=== PATIENT | male | born 1960 | race Caucasian/White ===

== ENCOUNTER 2024-11-15 15:46 | Outpatient (CLI) | payer MEDICARE, SELFPAY ==
--- OUTSIDE RECORDS SUMMARY | 2024-11-15 15:50 | XMS_ITS | Clinical Summary ---
Author Organization [facility] Address [address] [place] [address] Care Team Providers Care Artificial Flowers Starcher Name Role Phone Unavailable Primary Care Provider Unavailabl e Allergies No known active allergies Medications atorvastatin (LIPITOR) 80 mg tablet Take 40 mg by mouth daily at bedtime. 09/06/2024 Active ferrous sulfate 325 mg (65 mg iron) tablet Take 1 Tablet by mouth 2 times daily. Active rivaroxaban (XARELTO) 20 mg Tablet Take 20 mg by mouth daily with supper. 08/07/2024 Active ascorbic acid, vitamin C, (Vitamin C) 500 mg tablet Take 500 mg by mouth daily. 06/20/2024 Active vitamin E mixed 200 unit Tablet Take 1 tablet every day by oral route. 06/20/2024 Active Active Problems No known active problems Encounters Date Type Department Care Team Description 11/15/2024 3:00 PM VEGETABLE LOADER MACHINE OPERATOR Office Visit [facility] Oncology and Hematology [place] [address] [place] [phone] Davy Vera MD Prostate cancer ([facility]) (Primary Dx) 11/06/2024 External Device Data [facility] ABSTRACTION Provider, Abstract 10/18/2024 External Device Data [facility] ABSTRACTION Provider, Abstract 10/09/2024 External Device Data [facility] ABSTRACTION Provider, Abstract from Last 3 Months Family History Medical History Relation Name Comments Diabetes Brother 1 No Known Problems Brother 2 No Known Problems Brother 3 Diabetes Father Heart Disease Father back to back h eart attacks No Known Problems Mother No Known Problems Sister Relation Name Status Comments Brother 1 Alive Brother 2 Alive Brother 3 Alive Father Mother Sister Alive Social History Tobacco Use Types Packs/Day Years Used Date Smoking Tobacco: Never Smokeless Tobacco: Never Alcohol Use Standard Drinks/Week Comments Yes 0 (1 standard drink = 0.6 oz pur e alcohol) occasionally Sex and Gender Information Value Date Recorded Sex Assigned at Not on file Legal Sex Male 10:08 AM VEGETABLE LOADER MACHINE OPERATOR Gender Identity Not on file Sexual Orientation Not on file Last Filed Vital Signs Vital Sign Reading Time Taken Comments Blood Pressure 123/69 11/15/2024 3:12 PM VEGETABLE LOADER MACHINE OPERATOR Pulse 67 11/15/2024 3:12 PM VEGETABLE LOADER MACHINE OPERATOR Temperature 36.1 C (97 F) 11/15/2024 3:12 PM VEGETABLE LOADER MACHINE OPERATOR Respiratory Rate 15 11/15/2024 3:12 PM VEGETABLE LOADER MACHINE OPERATOR Oxygen Saturation 96% 11/15/2024 3:12 PM VEGETABLE LOADER MACHINE OPERATOR Inhaled Oxygen Concentration - - Weight 126.6 kg (279 lb) 11/15/2024 3:12 PM VEGETABLE LOADER MACHINE OPERATOR Height 177.8 cm (5' 10 ) 11/15/2024 3:12 PM VEGETABLE LOADER MACHINE OPERATOR Body Mass Index 40.03 11/15/2024 3:12 PM VEGETABLE LOADER MACHINE OPERATOR Plan of Treatment Upcoming Encounters Date Type Department Care Team (Late st Contact Info) Description 12/03/2024 4:30 PM CDT Telephone Check Up [facility] Oncology and Hematology - [place] [address] [facility] [address] [place] [address] Davy Vera MD [address] [facility] [address] [place] [address] Health Maintenance Due Date Last Done Comments Pre-Diabetes and Diabetes Screening 1960 COLORECTAL SCREENING 2003 Colorectal Cancer Screening 2003 FIT-DNA Q 3 years 2003 FIT/FOBT Q 1 year 2003 Flex Sig/CT Colonography Q 5 years 2003 ZOSTER VACCINE (1 of 2) 2008 RSV VACCINE (60+ or ) (1 - Risk 60-74 years 1-dose series) 2018 INFLUENZA VACCINE (#1) 2024 Medicare Advantage ([place]) Prev entative Visit/Annual Wellness Visit 09/26/2024 DTAP/TDAP/TD VACCINES (2 - Td or Tdap) 07/09/2031 PNEUMOCOCCAL VACCINE 65+ YEARS Completed 07/28/2023 Insurance [employer]
--- OUTSIDE RECORDS SUMMARY | 2024-11-15 15:50 | XMS_ITS | Encounter Summary ---
Author Organization [facility] Address [address] [place] [address] Care Team Providers Care Station Jailer Name Role Phone Unavailable Primary Care Provider Unavailabl e Reason for Referral * PET Scan (Routine) - Pending Review Specialty Diagnoses / Procedures Referred By Damon t Referred To Contact Diagnoses Prostate cancer (CMS/HCC) Procedures PET TUMOR GA68 ILLUCIX PSMA IMG W CT SKB MDTH CHG PET IMAGING CT ATTENUATION SKULL BASE MID-THIGH HCHG GALLIUM GA-68 GOZETOTIDE DX ILLUCCIX 1 MCI WA GALLIUM ILLUCCIX 1 MILLICURE Davy Vera MD [facility] First Active [facility] [employer] [address] [place], [place] [id number] Phone: tel: fax: Referral ID Status Reason Start Date Expiration Date V isits Requested Visits Authorized [id number] Pending Review 11/15/2024 12/16/2025 1 1 RGLASS FINISHER * Eval and Treat (Routine) - Open Specialty Diagnoses / Procedures Referred By Damon t Referred To Contact Urology Diagnoses Prostate cancer (CMS/HCC) Procedures WA OFFICE/OUTPATIENT ESTABLISHED MOD MDM 30 MIN WA OFFICE/OUTPATIENT NEW MODERATE MDM 45 MINUTES Davy Vera MD [address] [place] [phone] Phone: tel: fax: Referral ID Status Reason Start Date Expiration Date V isits Requested Visits Authorized [id number] Open CRS To Schedule (STL) 11/15/2024 11/15/2025 1 1 RGLASS FINISHER Encounter Details Date Type Department Care Team (Late st Contact Info) Description 11/15/2024 3:00 PM FIBERGLASS FINISHER Office Visit [facility] Oncology and Hematology [facility] [address] [place] [address] Davy Vera MD [address] [facility] [employer] [address] [place] [phone] Prostate cancer (CMS/HCC) (Primary Dx) Social History Tobacco Use Types Packs/Day Years Used Date Smoking Tobacco: Never Smokeless Tobacco: Never Alcohol Use Standard Drinks/Week Comments Yes 0 (1 standard drink = 0.6 oz pur e alcohol) occasionally Sex and Gender Information Value Date Recorded Sex Assigned at Not on file Legal Sex Male 10:08 AM FIBERGLASS FINISHER Gender Identity Not on file Sexual Orientation Not on file documented as of this encounter Last Filed Vital Signs Vital Sign Reading Time Taken Comments Blood Pressure 123/69 11/15/2024 3:12 PM FIBERGLASS FINISHER Pulse 67 11/15/2024 3:12 PM FIBERGLASS FINISHER Temperature 36.1 C (97 F) 11/15/2024 3:12 PM FIBERGLASS FINISHER Respiratory Rate 15 11/15/2024 3:12 PM FIBERGLASS FINISHER Oxygen Saturation 96% 11/15/2024 3:12 PM FIBERGLASS FINISHER Inhaled Oxygen Concentration - - Weight 126.6 kg (279 lb) 11/15/2024 3:12 PM FIBERGLASS FINISHER Height 177.8 cm (5' 10 ) 11/15/2024 3:12 PM FIBERGLASS FINISHER Body Mass Index 40.03 11/15/2024 3:12 PM FIBERGLASS FINISHER documented in this encounter Plan of Treatment Upcoming Encounters Date Type Department Care Team (Late st Contact Info) Description 12/03/2024 4:30 PM CDT Telephone Check Up [facility] Oncology and Hematology [facility] [address] [place] [address] Davy Vera MD [address] [place] [phone] Scheduled Orders Name Type Priority Associated Diagnoses Orde r Schedule PET TUMOR GA68 ILLUCIX PSMA IMG W CT SKB MDTH Imaging Routine Prostate cancer (CMS/HCC) 1 Occurrences starting 11/15/2024 until 11/15/2025 TESTOSTERONE FREE AND TOTAL Lab Routine Prostate cancer (CMS/HCC) Expected: 11/15/2024, Expires: 11/15/2025 PSA Lab Routine Prostate cancer (CMS/HCC) Expected: 12/06/2024, Expires: 11/15/2025 Scheduled Referrals Name Type Priority Associated Diagnoses Orde r Schedule AMB REFERRAL TO UROLOGY Outpatient Referral Routine Prostate cancer (CMS/HCC) Ordered: 11/15/2024 documented as of this encounter Visit Diagnoses Diagnosis Prostate cancer (CMS/HCC)- Primary Malignant neoplasm of prostate documented in this encounter
--- OUTSIDE RECORDS SUMMARY | 2024-11-15 15:51 | XMS_ITS | Patient Health Summary ---
Author Organization [facility] Address [address] [place] [address] Care Team Providers Care Police Patrol Lieutenant Name Role Phone Unknown, Provider Primary Care Provider Unavaila ble Note from [facility],non-owned Affiliates and Associated Physician Practices is amultiple site organization consisting of ambulatory clinics and hospital sitesin [place], [place], [place] and [place]. This disclosure is being madepursuant to the Care Everywhere program and may not contain all information available regarding this patient. Last updated 18.[facility] Allergies No known active allergies Medications * Be aware that medications may not be up to date on this document. Alwaysverify current medications with the patient. * atorvastatin (Lipitor) 40 MG tablet(Started 11/04/2023) Take 1 (one) tablet by mouth once daily * Calcium Carb-Cholecalciferol (Oyster Shell Calcium w/D) 500-5 MG-MCG TABS Take 1 tablet by mouth 2 times daily * rivaroxaban (Xarelto) 20 MG tablet Take 1 tablet every day by oral route. * cetirizine (ZyrTEC) 10 MG chew tablet Take 1 (one) tablet by mouth once daily * vitamin E (Tocopheryl) 200 UNIT capsule(Started 09/20/2023) Take 1 (one) capsule by mouth once daily * ascorbic acid (Vitamin C) 500 MG tablet(Started 09/20/2023) Take 1 (one) tablet by mouth once daily * VITAMIN D, CHOLECALCIFEROL, PO * VITAMIN A PO Active Problems Problem Noted Date Diagnosed Date Hepatic steatosis 03/20/2024 Social History Tobacco Use Types Packs/Day Years Used Date Smoking Tobacco: Never Smokeless Tobacco: Never Tobacco Cessation:Counseling Given: Not Answered Alcohol Use Standard Drinks/Week Comments Not Currently 0 (1 standard drink = 0.6 oz pur e alcohol) Sex and Gender Information Value Date Recorded Sex Assigned at Not on file Gender Identity Not on file Sexual Orientation Not on file Last Filed Vital Signs Vital Sign Reading Time Taken Comments Blood Pressure 119/64 03/20/2024 1:22 PM CDT Pulse 57 03/20/2024 1:22 PM CDT Temperature - - Respiratory Rate - - Oxygen Saturation 97% 03/20/2024 1:22 PM CDT Inhaled Oxygen Concentration - - Weight 125.5 kg (276 lb 9.6 oz) 03/20/2024 1:22 PM CDT Height 177.8 cm (5' 10 ) 12/23/2023 10: 22 AM CDT Body Mass Index 39.69 12/23/2023 10:22 AM CDT Procedures * PA LIVER ELASTOGRAPHY(Performed 03/20/2024) Performed for Elevated liver enzymes, Hepatic steatosis * ADELAIDA HEP-2 IGG BY IFA(Performed 12/23/2023) Performed for Hepatomegaly, Hepatic steatosis, Elevated liver enzymes * BILIRUBIN DIRECT(Performed 12/23/2023) Performed for Hepatomegaly, Hepatic steatosis, Elevated liver enzymes * IRON + TRANSFERRIN PANEL(Performed 12/23/2023) Performed for Hepatomegaly, Hepatic steatosis, Elevated liver enzymes * HEPATITIS C ANTIBODY(Performed 12/23/2023) Performed for Hepatomegaly, Hepatic steatosis, Elevated liver enzymes * HEPATITIS B SURFACE ANTIGEN W RFLX CONFIRMATION(Performed 12/23/2023) Performed for Hepatomegaly, Hepatic steatosis, Elevated liver enzymes * HEPATITIS B SURFACE ANTIBODY(Performed 12/23/2023) Performed for Hepatomegaly, Hepatic steatosis, Elevated liver enzymes * HEPATITIS B CORE ANTIBODY TOTAL(Performed 12/23/2023) Performed for Hepatomegaly, Hepatic steatosis, Elevated liver enzymes * HEPATITIS A ANTIBODY(Performed 12/23/2023) Performed for Hepatomegaly, Hepatic steatosis, Elevated liver enzymes * GGT(Performed 12/23/2023) Performed for Hepatomegaly, Hepatic steatosis, Elevated liver enzymes * FERRITIN(Performed 12/23/2023) Performed for Hepatomegaly, Hepatic steatosis, Elevated liver enzymes * CERULOPLASMIN(Performed 12/23/2023) Performed for Hepatomegaly, Hepatic steatosis, Elevated liver enzymes * ADELAIDA BLOOD SCREEN W/REFLEX TITER(Performed 12/23/2023) Performed for Hepatomegaly, Hepatic steatosis, Elevated liver enzymes * QHUVF-4-UOGZHPIREYV BLOOD(Performed 12/23/2023) Performed for Hepatomegaly, Hepatic steatosis, Elevated liver enzymes * COMPREHENSIVE METABOLIC PANEL(Performed 12/23/2023) Performed for Hepatomegaly, Hepatic steatosis, Elevated liver enzymes * CBC W AUTO DIFFERENTIAL(Performed 12/23/2023) Performed for Hepatomegaly, Hepatic steatosis, Elevated liver enzymes Results * PA LIVER ELASTOGRAPHY (03/20/2024 1:17 PM CDT) Jair Deleon MD - 03/20/2024 1:17 PM CDT Jair Ramos MD 03/20/2024 2:01 PM Diagnosis: Hepatic Steatosis, SUZANNE RN verified patient is NPO for prior 3 hours. Procedure explained. Date of Exam: 03/20/2024 Liver Stiffness: (LSM, kPa) median: 7.7 IQR/Median% (ideally < 30%): 11% CAP (controlled attenuation parameter): 354 Technical Difficulty: Patient jerked with every tap. Denied being painful Ordering Provider: BOOM Luo Phone Fax Fibroscan interpretation: I have personally reviewed the Fibroscan report and associated tracings. The calculated Liver Stiffness Measurement (LSM, kPa) indicates that: The probability of advanced liver fibrosis is: low to moderate. The loss of ultrasound signal, (controlled attenuation parameter, CAP [dB/m]), indicates that the probability of hepatic steatosis is: high. Jair Ceja MD The following criteria are used to indicate the probability of advanced (stage 3-4) fibrosis: < 7.0 kPa: low 7.0-8.9 kPa: low to moderate 9.0-14.9 kPa: moderate 15-20 kPa: high > 20 kPa: very high Liver stiffness > 20 kPa is also associated with a high probability of complications of portal hypertension including varices and ascites. Liver stiffness > 50 kPa is associated with a high risk of variceal bleeding. These interpretations are based on the following published data: Eber PJ, Lee M, Pura M, et al. Accuracy of FibroScan controlled attenuation parameter and liver stiffness measurement in assessing steatosis and fibrosis in patients with nonalcoholic fatty liver disease. Gastroenterology 2019;156:6900-7368. Freddie MS, Bassam R, Van Latosha ML, et al. Vibration-controlled transient elastography to assess fibrosis and steatosis in patients with nonalcoholic fatty liver disease. Clin Gastroenterol Hepatol 2019;17:156-163. Note that scores have been developed that incorporate the Fibroscan liver stiffness measurement from large cohorts of patients with liver biopsies to further refine the ability of Fibroscan to identify patients with MASH and advanced fibrosis. These include the FAST (Fibroscan-AST) score (Moraima, 202) and the Agile3+ and Agile4 scores (Anirudh, 202). Moraima TA, Van Natta ML, Rishi M, Reed A, et al. Validation of the accuracy of the FAST score for detecting patients with at-risk nonalcoholic steatohepatitis (LEWIS) in a [place] cohort and comparison to other non-invasive algorithms. PLoS ONE (2021) 17: [id number]. Anirudh AJ, Ced J, Bryce STAUFFER, et al. Enhanced diagnosis of advanced fibrosis and cirrhosis in individuals with NAFLD using FibroScan-based Agile scores. J Hepatol (2022) 78: 247-259. Fibroscan LSM can also be used with laboratory parameters without formulas to assess prognosis. According to the Baveno-VII criteria (Le, 202), Fibroscan LSM ?15 kPa plus a platelet count of ?[id number]/L rules out clinically significant portal hypertension (sensitivity and negative predictive value >90%) in patients with compensated advanced chronic liver disease. Le R, Josesito J, Rober-João G, Jameson T, Rocío Dias on behalf of the Baveno VII Faculty. Baveno VII--Renewing consensus in portal hypertension. J Hepatol (2021) 76: 959-974 Assessing the likelihood of advanced fibrosis in patients with intermediate liver stiffness measurement (LSM) by Fibroscan (e.g., 8-15 kPa) can be improved by also calculating the FIB-4 score (Ada et al. Hepatology Communications 2019;3:5136-1259) or NAFLD Fibrosis score (Hopkins et al. Clinical Gastroenterology and Hepatology 2019;17:1333-6047 using routine clinical data. Note: 1. Fibroscan cannot reliably identify earlier stages of fibrosis (ie distinguish F0 from F1 and F2) and thus a histologic stage cannot be predicted from the Fibroscan reading. 2. Liver stiffness can be increased by factors other than fibrosis including passive congestion, infiltrative processes, active alcoholism, recent moderate alcohol consumption in the 2 weeks before the exam, biliary obstruction and marked inflammation. The interpretation of the Fibroscan result provided above may not have taken such clinical factors into account. Disease etiology also influences Fibroscan cutoff values for fibrosis stages and the following cutoffs have been proposed (Volodymyr et al, Clin Gastro Hepatol 2015; 13:27-36): Cutoffs for Stage 3 and Stage 4 fibrosis respectively: Hepatitis B: >9 and >11.7 kPa Hepatitis C: >9.5 and >12.5 kPa HCV-HIV: >11 and >14 kPa Cholestatic liver diseases: >10 and >17.9 kPa MASLD/MASH: >10 and >14 kPa CAP estimates of steatosis: normal <200 dB/m mild 200 to 250 dB/m moderate 250-290 dB/m substantial > 290 dB/m (Note that Fibroscan is not a quantitative measure of liver fat.) These criteria are estimates and may change as additional supporting data becomes available. (This additional interpretive data was last updated 01/29/23.) [email or web address] Gisela Nuris Roper FURNITURE ASSEMBLER-DOUBLING MACHINE OPERATOR PROCEDURE/M INOR SURGICAL ORDERABLES * ADELAIDA HEP-2 IGG BY IFA (12/23/2023 11:22 AM CDT) ADELAIDA HEp-2 IgG <1:80 <1:80 12/29/2023 12:34 AM CDT [facility] ([facility]) ADELAIDA Interpretive Comment See Note 12/29/2023 12:34 AM CDT [facility] ([facility]) Comment: Antinuclear antibodies by IFA negative for homogeneous, speckled, nucleolar, centromere, and nuclear dots patterns. Cytoplasmic antibodies by IFA negative for reticular/AMA, discrete/GW body-like, polar/golgi-like, rods and rings, and cytoplasmic speckled patterns. INTERPRETIVE INFORMATION: ADELAIDA Interpretive Comment Presence of antinuclear antibodies (ADELAIDA) is a hallmark feature of systemic autoimmune rheumatic diseases (SARD). However, ADELAIDA lacks diagnostic specificity and is associated with a variety of diseases (cancers, autoimmune, infectious, and inflammatory conditions) and may also occur in healthy individuals in varying prevalence. The lack of diagnostic specificity requires confirmation of positive ADELAIDA by more specific serologic tests. ADELAIDA (nuclear reactivity) positive patterns reported include centromere, homogeneous, nuclear dots, nucleolar, or speckled. ADELAIDA (cytoplasmic reactivity) positive patterns reported include reticular/AMA, discrete/GW body-like, polar/golgi-like, cytoplasmic speckled or rods and rings. All positive patterns are reported to endpoint titers (1:2560). Reported patterns may help guide differential diagnosis, although they may not be specific for individual antibodies or diseases. Mitotic staining patterns not reported. Negative results do not necessarily rule out SARD. Performed By: [facility] [address] [place] [address] Slip Laster: Juan Rodriges MD, PhD CLIA Number: [id number] Blood BLOOD SPECIMEN / Unknown Lab Venipuncture / Unknown 12/23/2023 11:22 AM CDT 12/23/2023 11:34 AM CDT Gisela Roper FURNITURE ASSEMBLER-DOUBLING MACHINE OPERATOR LAB - SEROL OGY ORDERABLES [facility] ([facility]) [facility]) [address] [place] [address] * (ABNORMAL) ADELAIDA BLOOD SCREEN W/REFLEX TITER (12/23/2023 11:22 AM CDT) ADELAIDA IgG Detected (A) None Detected 12/25/2023 7:59 PM CDT COUNT INCLUDES THE [facility] ([facility]) Comment: Antibodies to Anti-Nuclear Antibodies (ADELAIDA) detected. Additional testing to follow. INTERPRETIVE INFORMATION: Anti-Nuclear Antibodies (ADELAIDA), IgG by SHANNON Antinuclear Antibodies (ADELAIDA), IgG by SHANNON: ADELAIDA specimens are screened using enzyme-linked immunosorbent assay (SHANNON) methodology. All SHANNON results reported as Detected are further tested by indirect fluorescent assay (IFA) using HEp-2 substrate with an IgG-specific conjugate. The ADELAIDA SHANNON screen is designed to detect antibodies against dsDNA, histones, SS-A (Ro), SS-B (La), Sullivan, Sullivan/[employer], Scl-70, Milka-1, centromeric proteins, other antigens extracted from the HEp-2 cell nucleus. ADELAIDA SHANNON assays have been reported to have lower sensitivities than ADELAIDA IFA for systemic autoimmune rheumatic diseases (SARD). Negative results do not necessarily rule out SARD. Performed By: [facility] [address] [place] [address] Slip Laster: Juan Rodriges MD, PhD CLIA Number: [id number] Blood BLOOD SPECIMEN / Unknown Lab Venipuncture / Unknown 12/23/2023 11:22 AM CDT 12/23/2023 11:34 AM CDT Gisela Roper FURNITURE ASSEMBLER-DOUBLING MACHINE OPERATOR LAB - CHEMI STRY ORDERABLES [address] [address] * CERULOPLASMIN (12/23/2023 11:22 AM CDT) Ceruloplasmin 28 20 - 60 mg/dL 12/23/2023 12:09 PM CDT [facility] Blood BLOOD SPECIMEN / Unknown Lab Venipuncture / Unknown 12/23/2023 11:22 AM CDT 12/23/2023 11:34 AM CDT Gisela Roper APRN-DOUBLING MACHINE OPERATOR LAB - CHEMI STRY ORDERABLES [address] [address], [facility] [phone] * ZAANS-8-MMMQWJOTQWE BLOOD (12/23/2023 11:22 AM CDT) Qbyfq-9-Egoado ypsin 152 90 - 200 mg/dL 12/23/2023 12:09 PM CDT [facility] Blood BLOOD SPECIMEN / Unknown Lab Venipuncture / Unknown 12/23/2023 11:22 AM CDT 12/23/2023 11:34 AM CDT Gisela Roper FURNITURE ASSEMBLER-DOUBLING MACHINE OPERATOR LAB - CHEMI STRY ORDERABLES [address] [address], [facility] [phone] * (ABNORMAL) CBC WITH DIFFERENTIAL (12/23/2023 11:22 AM CDT) [facility] WBC 4.6 4.0 - 10.7 x10E9/L 12/23/2023 11:49 AM [facility] RBC Count 4.99 4.30 - 5.80 x10E12/L 12/23/2023 11:49 AM [facility] Hemoglobin 13.6 13.3 - 17.5 g/dL 12/23/2023 11:49 AM [facility] Hematocrit 40.7 38.7 - 51.1 % 12/23/2023 11:49 AM [facility] MCV 81.6 80.0 - 98.0 fL 12/23/2023 11:49 AM [facility] MCH 27.3 26.7 - 33.6 pg 12/23/2023 11:49 AM [facility] MCHC 33.4 31.7 - 36.3 g/dL 12/23/2023 11:49 AM [facility] RDW-CV 13.8 11.3 - 14.8 % 12/23/2023 11:49 AM [facility] Platelet Count 168 150 - 420 x10E9/L 12/23/2023 11:49 AM [facility] MPV 9.4 7.8 - 11.4 fL 12/23/2023 11:49 AM [facility] Neutrophil % 55.1 41.0 - 74.0 % 12/23/2023 11:49 AM [facility] Lymphocyte % 19.8 17.0 - 47.0 % 12/23/2023 11:49 AM [facility] Monocyte % 21.8(H) 3.0 - 11.0 % 12/23/2023 11:49 AM [facility] Eosinophil % 1.1 0.0 - 7.0 % 12/23/2023 11:49 AM [facility] Basophil % 1.5 0.0 - 1.6 % 12/23/2023 11:49 AM [facility] Immature Granulocytes % 0.7 0.0 - 1.0 % 12/23/2023 11:49 AM [facility] Neutrophil Absolute 2.51 1.60 - 7.50 x10E9/L 12/23/2023 11:49 AM [facility] Lymphocyte Absolute 0.90(L) 1.00 - 4.40 x10E9/L 12/23/2023 11:49 AM [facility] Monocyte Absolute 0.99 0.15 - 1.00 x10E9/L 12/23/2023 11:49 AM [facility] Eosinophil Absolute 0.05 0.00 - 0.60 x10E9/L 12/23/2023 11:49 AM [facility] Basophil Absolute 0.07 0.00 - 0.13 x10E9/L 12/23/2023 11:49 AM [facility] Blood BLOOD SPECIMEN / Unknown Lab Venipuncture / Unknown 12/23/2023 11:22 AM CDT 12/23/2023 11:38 AM CDT Gisela Roper FURNITURE ASSEMBLER-DOUBLING MACHINE OPERATOR LAB - HEMAT OLOGY ORDERABLES [facility] [address] [place] [address], [facility] [phone] * (ABNORMAL) COMPREHENSIVE METABOLIC PANEL (12/23/2023 11:22 AM CDT) BUN 16 7 - 26 mg/dL 12/23/2023 12:06 PM [facility] Creatinine 0.99 0.71 - 1.16 mg/dL 12/23/2023 12:06 PM [facility] Sodium 139 136 - 145 mmol/L 12/23/2023 12:06 PM [facility] Potassium 3.6 3.5 - 4.5 mmol/L 12/23/2023 12:06 PM [facility] Chloride 107 98 - 107 mmol/L 12/23/2023 12:06 PM [facility] CO2 24 22 - 29 mmol/L 12/23/2023 12:06 PM [facility] Glucose 68(L) 70 - 115 mg/dL 12/23/2023 12:06 PM [facility] Calcium 8.8 8.4 - 10.2 mg/dL 12/23/2023 12:06 PM [facility] Protein Total 7.4 6.0 - 8.3 g/dL 12/23/2023 12:06 PM [facility] Albumin 3.5 3.4 - 5.0 g/dL 12/23/2023 12:06 PM [facility] Bilirubin Total 1.0 0.2 - 1.2 mg/dL 12/23/2023 12:06 PM [facility] Alkaline Phosphatase 66 40 - 150 U/L 12/23/2023 12:06 PM [facility] ALT 43 5 - 55 U/L 12/23/2023 12:06 PM [facility] AST 29 5 - 34 U/L 12/23/2023 12:06 PM [facility] Anion Gap 8 6 - 16 12/23/2023 12:06 PM [facility] BUN/Creatinine Ratio 16 7 - 23 12/23/2023 12:06 PM [facility] Osmolality Calculated 287 275 - 295 mOsm/kg 12/23/2023 12:06 PM [facility] Albumin/Globulin Ratio 0.9(L) 1.1 - 2.3 12/23/2023 12:06 PM [facility] eGFR by CKD-EPI 85(L) >=90 mL/min/1.7 3 m2 12/23/2023 12:06 PM [facility] Blood BLOOD SPECIMEN / Unknown Lab Venipuncture / Unknown 12/23/2023 11:22 AM CDT 12/23/2023 11:38 AM CDT Gisela Roper FURNITURE ASSEMBLER-DOUBLING MACHINE OPERATOR LAB - CHEMI STRY ORDERABLES [facility] [address] [place] [address], [facility] [phone] * HEPATITIS B SURFACE ANTIBODY (12/23/2023 11:22 AM CDT) Hepatitis B Virus Surface Antibody Non-react yoana Non-react yoana 12/23/2023 12:25 PM [facility] Comment: < 8 mIU/mL Hepatitis B surface Antibody (HBsAb). Nonreactive for HBsAb - individual is considered not immune to Hepatitis B Virus infection. Hepatitis B Surface Antibody Quantitative 0.1 <8.0 mIU/mL 12/23/2023 12:25 PM CDT [facility] Comment: Hepatitis B Surface Antibody Numeric Result Interpretation: Nonreactive: <8.0 mIU/mL Indeterminate: 8.0 - 12.0 mIU/mL Reactive: >12.0 mIU/mL Blood BLOOD SPECIMEN / Unknown Lab Venipuncture / Unknown 12/23/2023 11:22 AM CDT 12/23/2023 11:34 AM CDT Gisela Roper APRN-DOUBLING MACHINE OPERATOR LAB - CHEMI STRY ORDERABLES Performing Organization Address City/[facility]/ZIP Co de Phone Number [address] [address], [facility] [phone] * HEPATITIS B CORE ANTIBODY TOTAL (12/23/2023 11:22 AM CDT) HBc Antibody Total Non-reacti ve Non-reacti ve 12/23/2023 12:25 PM CDT [facility] Blood BLOOD SPECIMEN / Unknown Lab Venipuncture / Unknown 12/23/2023 11:22 AM CDT 12/23/2023 11:34 AM CDT Gisela Roper APRN-DOUBLING MACHINE OPERATOR LAB - CHEMI STRY ORDERABLES [address] [address], [place] [phone] * HEPATITIS B SURFACE ANTIGEN W RFLX CONFIRMATION (12/23/2023 11:22 AM CDT) Hepatitis B Virus Surface Antigen Non-reacti ve Non-reacti ve 12/23/2023 12:25 PM CDT [facility] Blood BLOOD SPECIMEN / Unknown Lab Venipuncture / Unknown 12/23/2023 11:22 AM CDT 12/23/2023 11:34 AM CDT Gisela Lawler Roper FURNITURE ASSEMBLER-DOUBLING MACHINE OPERATOR LAB - CHEMI STRY ORDERABLES [address] [address], [facility] [phone] * GGT (12/23/2023 11:22 AM CDT) GGT 18 9 - 64 Units/L 12/23/2023 12:06 PM CDT [facility] Blood BLOOD SPECIMEN / Unknown Lab Venipuncture / Unknown 12/23/2023 11:22 AM CDT 12/23/2023 11:38 AM CDT Gisela Roper APRN-DOUBLING MACHINE OPERATOR LAB - CHEMI STRY ORDERABLES Performing Organization Address City/[facility]/ZIP Co de Phone Number [address] [address], [facility] [phone] * BILIRUBIN DIRECT (12/23/2023 11:22 AM CDT) Bilirubin Conjugated 0.5 0.1 - 0.5 mg/dL 12/23/2023 12:06 PM CDT [facility] Blood BLOOD SPECIMEN / Unknown Lab Venipuncture / Unknown 12/23/2023 11:22 AM CDT 12/23/2023 11:38 AM CDT [facility] - CHEMI STRY ORDERABLES [address] [address], [facility] [phone] * (ABNORMAL) IRON + TRANSFERRIN PANEL (12/23/2023 11:22 AM CDT) Iron 34(L) 50 - 175 ug/dL 12/23/2023 12:11 PM CDT [facility] Transferrin 239 174 - 382 mg/dL 12/23/2023 12:11 PM CDT [facility] Transferrin Saturation % 11(L) 16 - 50 % 12/23/2023 12:11 PM CDT [facility] TIBC Calculated 299 240 - 450 ug/dL 12/23/2023 12:11 PM CDT [facility] Blood BLOOD SPECIMEN / Unknown Lab Venipuncture / Unknown 12/23/2023 11:22 AM CDT 12/23/2023 11:34 AM CDT Gisela Roper FURNITURE ASSEMBLER-DOUBLING MACHINE OPERATOR LAB - CHEMI STRY ORDERABLES [address] [address], [facility] [phone] * HEPATITIS C ANTIBODY (12/23/2023 11:22 AM CDT) Pathologist [facility] Hepatitis C Antibody Non-react yoana Non-reac tive 12/23/2023 12:25 PM CDT [facility] Comment:Hepatitis C Antibody screen indicates no serologic evidence of past or current infection with Hepatitis C Virus. Patients with unexplained liver disease who are immunocompromised or suspected of having acute Hepatitis C infection may benefit from Nucleic Acid Test (ESTELA) for Hepatitis C Viral RNA to confirm Hepatitis C status. Blood BLOOD SPECIMEN / Unknown Lab Venipuncture / Unknown 12/23/2023 11:22 AM CDT 12/23/2023 11:34 AM CDT Gisela Roper APRN-DOUBLING MACHINE OPERATOR LAB - CHEMI STRY ORDERABLES Performing Organization Address City/[facility]/ZIP Co de Phone Number [address] [address], [place] [phone] * HEPATITIS A ANTIBODY (12/23/2023 11:22 AM CDT) Pathologist [facility] Hepatitis A Virus Antibody Total Negative Negative 12/24/2023 7:11 PM CDT [employer] ([facility]) Comment: Performed By: [facility] [address] [place] [address] Slip Laster: Juan Rodriges MD, PhD CLIA Number: [id number] Blood BLOOD SPECIMEN / Unknown Lab Venipuncture / Unknown 12/23/2023 11:22 AM CDT 12/23/2023 11:34 AM CDT Gisela Roper FURNITURE ASSEMBLER-DOUBLING MACHINE OPERATOR LAB - CHEMI STRY ORDERABLES [facility] ([facility]) [address] [place] [phone], [facility] * FERRITIN (12/23/2023 11:22 AM CDT) Ferritin 117 22 - 275 ng/mL 12/23/2023 12:25 PM CDT [facility] Blood BLOOD SPECIMEN / Unknown Lab Venipuncture / Unknown 12/23/2023 11:22 AM CDT 12/23/2023 11:34 AM CDT Gisela Roper FURNITURE ASSEMBLER-DOUBLING MACHINE OPERATOR LAB - CHEMI STRY ORDERABLES [address] [address], [facility] [phone] Care Teams Police Patrol Lieutenant Relationship Specialty Start Date End Date Unknown, Provider PCP - General 12/23/23
--- OUTSIDE RECORDS SUMMARY | 2024-11-15 15:51 | XMS_ITS | Referral Summary ---
Author Organization [facility] Address [address] [place] [address] Care Team Providers Care Interactive Media Project Manager Name Role Phone Chito Cornejo MD Primary Care Provider + Encounters Date Type Department Care Team Description 10/23/2024 9:43 PM MOTOR VEHICLE ASSEMBLER - 10/24/2024 1:59 AM MOTOR VEHICLE ASSEMBLER Emergency [facility] Emergency Department [address] [place] [address] Joleen Camejo MD Rectal bleeding (Primary Dx) Discharge Disposition: Discharge to home or self care from Last 3 Months Allergies No known active allergies Medications aspirin 325 mg tablet Take 325 mg by mouth daily Active calcium carbonate-vitami n D3 1,250mg (500mg elemental) - 5 mcg (200 units) per tablet Take 1 tablet by mouth 2 (two) times a day with meals Active dextroamphetamin e-amphetamine (ADDERALL) 30 mg tablet Take 1 tablet (30 mg total) by mouth daily 30 tablet 05/01/2021 Active RIVAROXABAN 15 MG (42)-20 MG (9) TABLETS IN A STARTER PACK Take 15 mg (1 tablet) TWICE a day for 21 days, then take 20 mg (1 tablet) once a day thereafter. 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 Denies 10/23/2024 Sex and Gender Information Value Date Recorded Sex Assigned at Not on file Legal Sex Male 1:17 AM MOTOR VEHICLE ASSEMBLER Gender Identity Not on file Sexual Orientation Not on file Last Filed Vital Signs Vital Sign Reading Time Taken Comments Blood Pressure 137/85 10/24/2024 1:00 AM MOTOR VEHICLE ASSEMBLER Pulse 62 10/24/2024 1:50 AM MOTOR VEHICLE ASSEMBLER Temperature 36.7 C (98 F) 10/23/2024 7:43 PM MOTOR VEHICLE ASSEMBLER Respiratory Rate 18 10/23/2024 7:45 PM MOTOR VEHICLE ASSEMBLER Oxygen Saturation 92% 10/24/2024 1:50 AM MOTOR VEHICLE ASSEMBLER Inhaled Oxygen Concentration - - Weight 127.5 kg (281 lb) 10/23/2024 7:43 PM MOTOR VEHICLE ASSEMBLER Height 177.8 cm (5' 10 ) 10/23/2024 7:43 PM MOTOR VEHICLE ASSEMBLER Body Mass Index 40.32 10/23/2024 7:43 PM MOTOR VEHICLE ASSEMBLER Plan of Treatment Not on file Procedures Procedure Name Priority Date/Time Associated Diagnosis Comments HEMOGLOBIN AND HEMATOCRIT STAT 10/24/2024 12:58 AM MOTOR VEHICLE ASSEMBLER B ABO / RH CONFIRMATION TESTING STAT 10/24/2024 12:58 AM MOTOR VEHICLE ASSEMBLER EGFR STAT 10/23/2024 9:59 PM MOTOR VEHICLE ASSEMBLER DIFFERENTIAL AUTO STAT 10/23/2024 9:5 9 PM MOTOR VEHICLE ASSEMBLER ANTIBODY SCREEN STAT 10/23/2024 9:59 PM MOTOR VEHICLE ASSEMBLER ABO/RH STAT 10/23/2024 9:59 PM MOTOR VEHICLE ASSEMBLER TYPE AND SCREEN STAT 10/23/2024 9:59 PM MOTOR VEHICLE ASSEMBLER PROTIME-INR STAT 10/23/2024 9:59 PM MOTOR VEHICLE ASSEMBLER COMPREHENSIVE METABOLIC PANEL STAT 10/23/2024 9:59 PM MOTOR VEHICLE ASSEMBLER CBC WITH AUTO DIFFERENTIAL STAT 10/23/2024 9:59 PM MOTOR VEHICLE ASSEMBLER SERUM HEPATITIS PANEL Routine 05/24/2015 6:53 AM CDT from Last 3 Months or Most Recently Relevant to Health Maintenance Results * ABO / Rh Confirmation Testing (10/24/2024 12:58 AM MOTOR VEHICLE ASSEMBLER) Pathologist [facility] ABO/Rh Confirmation B Positive [facility] Blood 10/24/2024 12:5 8 AM MOTOR VEHICLE ASSEMBLER 10/24/2024 1:02 AM MOTOR VEHICLE ASSEMBLER us Mora BANKS LAB BLOOD ORDERABLES Blanca l Result [facility] ([place]) [address] [place] [address] [place] [address] [facility] * Hemoglobin and hematocrit (10/24/2024 12:58 AM MOTOR VEHICLE ASSEMBLER) [facility] Hgb 13.5 13.0 - 17.5 g/dL Hct 40.1 38.9 - 50.3 % [facility]) Blood 10/24/2024 12:5 8 AM MOTOR VEHICLE ASSEMBLER 10/24/2024 1:02 AM MOTOR VEHICLE ASSEMBLER us Joleen Camejo MD LAB BLOOD ORDERABLES Final Resul t [facility] ([place]) [address] [place] [address] [place] [address] * eGFR (10/23/2024 9:59 PM MOTOR VEHICLE ASSEMBLER) eGFR >90 >=60 mL/min/1. 73 m2 Comment: Interpretive Data Reference Interval Normal >/= 90 mL/min/1.73m2 Mildly decreased* 60 - 89 mL/min/1.73m2 Mildly to moderately decreased 45 - 59 mL/min/1.73m2 Moderately to severely decreased 30 - 44 mL/min/1.73m2 Severely decreased 15 - 29 mL/min/1.73m2 Kidney Failure < 15 mL/min/1.73m2 *Relative to young adult level Estimated glomerular filtration rate is determined by the 2020 CKD-EPI equation recommended by the National Kidney Foundation (A Unifying Approach to GFR Estimation: Recommendations of the NKF-ASK Task Force on Reassessing the Inclusion of Race in Diagnosing Kidney Disease, JASN 2020). The CKD-EPI equation should not be used for patients with unstable renal function and has not been validated in children and those over 70. Current interpretive data was last reviewed 2021. Blood 10/23/2024 9:59 PM MOTOR VEHICLE ASSEMBLER 10/23/2024 10:01 PM MOTOR VEHICLE ASSEMBLER us Mora BANKS LAB BLOOD ORDERABLES Blanca schultz Result [facility] ([place]) 1 [facility] [place] [address] * Differential, auto (10/23/2024 9:59 PM MOTOR VEHICLE ASSEMBLER) Pathologist [facility] Neutrophil abs 5.2 1.5 - 6.5 K/cumm Imm gran abs 0.1 0.0 - 0.1 K/cumm [facility] ([place]) Lymphocyte abs 2.6 0.8 - 3.3 K/cumm [facility] ([place]) Monocyte abs 0.8 0.2 - 0.8 K/cumm [facility] ([place]) Eosinophil abs 0.3 0.0 - 0.5 K/cumm [facility] ([place]) Basophil abs 0.1 0.0 - 0.1 K/cumm [facility] ([place]) Neutrophil pct 57.6 % [facility] ([place]) Comment: Interpretive Data Percent cell count reference ranges are not reported, since discordance with absolute values may lead to misinterpretation of CBC data. Current Interpretive Data was last revised on 2018. Imm gran pct 0.6 % [facility] ([place]) Comment: Interpretive Data Percent cell count reference ranges are not reported, since discordance with absolute values may lead to misinterpretation of CBC data. Current Interpretive Data was last revised on 2018. Lymphocyte pct 28.3 % [facility] ([place]) Comment: Interpretive Data Percent cell count reference ranges are not reported, since discordance with absolute values may lead to misinterpretation of CBC data. Current Interpretive Data was last revised on 2018. Monocyte pct 9.0 % [facility] ([place]) Comment: Interpretive Data Percent cell count reference ranges are not reported, since discordance with absolute values may lead to misinterpretation of CBC data. Current Interpretive Data was last revised on 2018. Eosinophil pct 3.8 % [facility] ([place]) Comment: Interpretive Data Percent cell count reference ranges are not reported, since discordance with absolute values may lead to misinterpretation of CBC data. Current Interpretive Data was last revised on 2018. Basophil pct 0.7 % [facility] ([place]) Comment: Interpretive Data Percent cell count reference ranges are not reported, since discordance with absolute values may lead to misinterpretation of CBC data. Current Interpretive Data was last revised on 2018. Blood 10/23/2024 9:59 PM MOTOR VEHICLE ASSEMBLER 10/23/2024 10:01 PM MOTOR VEHICLE ASSEMBLER us Mora BANKS LAB BLOOD ORDERABLES Blanca l Result [facility] ([place]) 1 [facility] [place] [address] * CBC with auto differential (10/23/2024 9:59 PM MOTOR VEHICLE ASSEMBLER) WBC 9.0 3.8 - 9.9 K/cumm Hgb 14.2 13.0 - 17.5 g/dL [facility] ([place]) Hct 42.9 38.9 - 50.3 % [facility] ([place]) Plt 207 150 - 400 K/cumm [facility] ([place]) MPV 9.5 9.1 - 12.[address] [facility] ([place] RBC 5.20 4.30 - 5.80 M/cumm [facility] ([place]) MCV 82.5 81.3 - 96.[address] [facility] ([place]) MCH 27.3 27.1 - 33.[address] [facility] ([place]) MCHC 33.1 32.3 - 35.7 g/dL [facility] ([place]) RDW CV 13.5 11.1 - 14.9 % [facility] ([place]) RDW SD 40.7 35.7 - 48.[address] [facility] ([place]) NRBC abs 0.00 0.00 - 0.01 K/cumm [facility] ([place]) Blood 10/23/2024 9:59 PM MOTOR VEHICLE ASSEMBLER 10/23/2024 10:01 PM MOTOR VEHICLE ASSEMBLER Mora BANKS LAB BLOOD ORDERABLES Blanca l Result [facility] ([place]) [address] [facility] [place] [address] * ABO/Rh (10/23/2024 9:59 PM MOTOR VEHICLE ASSEMBLER) [facility] ABO/Rh B Positive Blood 10/23/2024 9:59 PM MOTOR VEHICLE ASSEMBLER 10/23/2024 10:01 PM MOTOR VEHICLE ASSEMBLER Narrative [facility] ([place]) - 10/23/2024 11:41 PM MOTOR VEHICLE ASSEMBLER Has the patient had Daratumumab or Isatuximab in the past 6 months?->Unknown Mora BANKS LAB BLOOD BANK TEST ORDER BRET Final Result [facility] ([place]) 1 [facility] [place] [address] * (ABNORMAL) Protime-INR (10/23/2024 9:59 PM MOTOR VEHICLE ASSEMBLER) PT 14.4(H) 9.7 - 13.0 sec [facility] ([place]) INR 1.33(H) 0.90 - 1.20 [facility] ([place]) Comment: Interpretive data Oral anticoagulant therapeutic ranges: Venous thromboembolism prophylaxis or treatment: 2.0-3.0 CARDIOLOGY Standard range: 2.0-3.0 High-intensity range: 2.5-3.5 Refer to indication-specific guidelines for appropriate target ranges for prosthetic heart valve replacement. Current interpretive data was last revised on 2019. Blood 10/23/2024 9:59 PM MOTOR VEHICLE ASSEMBLER 10/23/2024 10:01 PM MOTOR VEHICLE ASSEMBLER Mora BANKS LAB BLOOD ORDERABLES Blanca l Result Performing Organization Address City/[facility]/ZIP Co de Phone Number [facility] ([place]) [address] [facility] [place] [address] * Antibody screen (10/23/2024 9:59 PM MOTOR VEHICLE ASSEMBLER) Pathologist [facility], indirect, Gel Interpretation Negative ABSC Blood 10/23/2024 9:59 PM MOTOR VEHICLE ASSEMBLER 10/23/2024 10:01 PM MOTOR VEHICLE ASSEMBLER Narrative [facility] ([place]) - 10/23/2024 11:41 PM MOTOR VEHICLE ASSEMBLER Has the patient had Daratumumab or Isatuximab in the past 6 months?->Unknown Mora BANKS LAB BLOOD BANK TEST ORDER BRET Final Result [facility] ([place]) 1 [facility] [place] [address] * (ABNORMAL) Comprehensive metabolic panel (10/23/2024 9:59 PM MOTOR VEHICLE ASSEMBLER) [facility] Sodium 138 135 - 145 mmol/L Potassium, pl 3.7 3.3 - 4.9 mmol/L [facility] ([place]) Chloride 104 97 - 110 mmol/L [facility] ([place]) CO2 23 22 - 32 mmol/L [facility] ([place]) Anion gap 11 2 - 15 mmol/L [facility] ([place]) BUN 16 6 - 25 mg/dL [facility] ([place]) Creatinine 0.81 0.80 - 1.30 mg/dL [facility] ([place]) Comment:Icteric sample, test results may be affected. Glucose 92 70 - 199 mg/dL [facility] ([place]) Comment: Interpretive Data Fasting glucose >/= 126 mg/dl is diagnostic for diabetes. Fasting is defined as no caloric intake for at least 8 hours. Fasting glucose between 100 mg/dl to 125 mg/dl is diagnostic of prediabetes. In a patient with classic symptoms of hyperglycemia or hyperglycemic crisis, a random glucose >/= 200 mg/dl is diagnostic for diabetes. In the absence of unequivocal hyperglycemia, results should be confirmed by repeat testing. The classification and Diagnosis of Diabetes Diabetes Care 202; 46: S19-S40. Current interpretive data was last revised 2022. Calcium 9.2 8.5 - 10.3 mg/dL [facility] ([place] Bilirubin, total 1.4(H) 0.1 - 1.2 mg/dL [facility] ([place]) Protein, pl 7.7 6.5 - 8.5 g/dL [facility] ([place]) Albumin 4.1 3.5 - 5.0 g/dL [facility] ([place]) Alk phos 63 40 - 130 Units/L [facility] ([place]) ALT 56(H) 7 - 55 Units/L [facility] ([place]) AST 31 10 - 50 Units/L [facility] ([place]) Blood 10/23/2024 9:59 PM MOTOR VEHICLE ASSEMBLER 10/23/2024 10:01 PM MOTOR VEHICLE ASSEMBLER us Mora BANKS LAB BLOOD ORDERABLES Blanca l Result [facility] ([place]) 1 [facility] [place] [address] * Serum Hepatitis panel (05/24/2015 6:53 AM CDT) HAV ab, IgM NON-REACTI VE NON-REACTI VE HISTORICAL RESULTS HBV surface ag NON-REACTI VE NON-REACTI VE HISTORICAL RESULTS HBV core ab, IgM NON-REACTI VE NON-REACTI VE HISTORICAL RESULTS HCV ab NON-REACTI VE NON-REACTI VE HISTORICAL RESULTS Hepatitis signal to cutoff ratio 0.05 <1.00 HISTORICAL RESULTS Serum 05/24/2015 6:53 AM CDT Narrative HISTORICAL RESULTS - 05/26/2015 10:00 AM CDT Test performed at [facility] [address] [place] [address] Director: KARLEY ADORNO DO,MPH us Historical Provider LAB BLOOD ORDERABLES Blanca schultz Result HISTORICAL RESULTS from Last 3 Months or Most Recently Relevant to Health Maintenance Insurance [place] MEDICARE [facility] MEDICARE Address: [facility] [address] [place] [address] Care Teams Interactive Media Project Manager Relationship Specialty Start Date End Date Chito Cornejo MD PCP - General 04/11/18
--- OUTSIDE RECORDS SUMMARY | 2024-11-15 15:51 | XMS_ITS | Continuity of Care Document ---
Author Organization [facility] Address [address] [place] [address] Phone Care Team Providers Care Hand Paint Mixer Name Role Phone Quiles OD, Beny Unavailable Unavailable Advance Directives Directive Yes / No Effective Date File Name No Information Encounters Encounter Description Practice Location Reason(s) For Visit Diagnoses Date Provider Providers Copied on Encounter [facility], [address], [place], [place], [id number], [place] tel:[phone] [facility] [place] No Information 2-200 3 Quiles OD Beny. [address] , [address], [place], [address], [place]. tel:[phone] Family History Family Member Type Diagnosis Age At Onset No Information Payers Payer name Insurance type Covered democrat ID Authoriza tion(s) No Information Social History Type Description Quantity Date Captured Comments Sex Male Smoking Status No Information Chief Complaint And Reason For Visit No Information Reason For Referral Reason For Referral No Information History Of Present Illness Encounter Date Complaint History Of Prese nt Illness No Information Functional Status Date Functional Assessmen t No Information Instructions Date Instruction Additional Infor mation No Information Assessments Type Assessment Date No Information Patient Care Teams Name Effective Dates (start - stop) Status Members No Information
--- OUTSIDE RECORDS SUMMARY | 2024-11-15 15:51 | XMS_ITS | Referral Summary ---
Author Organization [facility] Address [address] [place] [address] Care Team Providers Care Cafeteria Food Server Name Role Phone Unknown, Provider Primary Care Provider Unavaila ble Source Comments [facility],non-owned Affiliates and Associated Physician Practices is amultiple site organization consisting of ambulatory clinics and hospital sitesin [place], [place], [place] and [place]. This disclosure is being madepursuant to the Care Everywhere program and may not contain all information available regarding this patient. Last updated 18.[facility] Allergies No known active allergies Medications * Be aware that medications may not be up to date on this document. Alwaysverify current medications with the patient. Medication Sig Dispensed Refills Start Date End Date Status atorvastatin (Lipitor) 40 MG tablet Take 1 (one) tablet by mouth once daily 11/04/2023 Active Calcium Carb-Cholecalciferol (Oyster Shell Calcium w/D) 500-5 MG-MCG TABS Take 1 tablet by mouth 2 times daily Active rivaroxaban (Xarelto) 20 MG tablet Take 1 tablet every day by oral route. Active cetirizine (ZyrTEC) 10 MG chew tablet Take 1 (one) tablet by mouth once daily Active vitamin E (Tocopheryl) 200 UNIT capsule Take 1 (one) capsule by mouth once daily 09/20/2023 Active ascorbic acid (Vitamin C) 500 MG tablet Take 1 (one) tablet by mouth once daily 09/20/2023 Active VITAMIN D, CHOLECALCIFEROL, PO Activ e VITAMIN A PO Active Active Problems Problem Noted Date Diagnosed Date Hepatic steatosis 03/20/2024 Overview (03/20/2024): 03/20/24 Fibroscan CAP 354, LSM 7.7 kPa Social History Tobacco Use Types Packs/Day Years [...] Mass Index 39.69 12/23/2023 10:22 AM CDT Plan of Treatment Upcoming Encounters Date Type Department Care Team (Late st Contact Info) Description 03/18/2025 11:00 AM CDT Appointment [facility] [address] [place] [phone] Gisela Roper, DIGITAL DATA ANALYST-CLEANER CARPET AND [employer]PH[employer]ERY [address] [place] [address] [address] [place] [address] 03/18/2025 12:30 PM CDT Office Visit [facility] - [address] [place] [phone] Gisela Roper, DIGITAL DATA ANALYST-CLEANER [employer]PH[employer] [address] [place] [address] [address] [place] [address] Procedures Procedure Name Priority Date/Time Associated Diagnosis Comments COMPREHENSIVE METABOLIC PANEL Routine 12/23/2023 11:22 AM CDT Hepatomegaly Hepatic steatosis Elevated liver enzymes HEPATITIS C ANTIBODY Routine 12/23/2023 11:22 AM CDT Hepatomegaly Hepatic steatosis Elevated liver enzymes from Last 3 Months or Most Recently Relevant to Health Maintenance Results * (ABNORMAL) COMPREHENSIVE METABOLIC PANEL (12/23/2023 11:22 AM CDT) BUN 16 7 - 26 mg/dL 12/23/2023 12:06 PM [facility] Creatinine 0.99 0.71 - 1.16 mg/dL 12/23/2023 12:06 PM [facility] Sodium 139 136 - 145 mmol/L 12/23/2023 12:06 PM [facility] Potassium 3.6 3.5 - 4.5 mmol/L 12/23/2023 12:06 PM [facility] Chloride 107 98 - 107 mmol/L 12/23/2023 12:06 PM [facility] CO2 24 22 - 29 mmol/L 12/23/2023 12:06 PM [facility] Glucose 68(L) 70 - 115 mg/dL 12/23/2023 12:06 PM [facility] Calcium 8.8 8.4 - 10.2 mg/dL 12/23/2023 12:06 PM [facility] Protein Total 7.4 6.0 - 8.3 g/dL 12/23/2023 12:06 PM [facility] Albumin 3.5 3.4 - 5.0 g/dL 12/23/2023 12:06 PM [facility] Bilirubin Total 1.0 0.2 - 1.2 mg/dL 12/23/2023 12:06 PM [facility] Alkaline Phosphatase 66 40 - 150 U/L 12/23/2023 12:06 PM [facility] ALT 43 5 - 55 U/L 12/23/2023 12:06 PM [facility] AST 29 5 - 34 U/L 12/23/2023 12:06 PM [facility] Anion Gap 8 6 - 16 12/23/2023 12:06 PM [facility] BUN/Creatinine Ratio 16 7 - 23 12/23/2023 12:06 PM [facility] Osmolality Calculated 287 275 - 295 mOsm/kg 12/23/2023 12:06 PM [facility] Albumin/Globulin Ratio 0.9(L) 1.1 - 2.3 12/23/2023 12:06 PM [facility] eGFR by CKD-EPI 85(L) >=90 mL/min/1.7 3 m2 12/23/2023 12:06 PM CDT [facility] Blood BLOOD SPECIMEN / Unknown Lab Venipuncture / Unknown 12/23/2023 11:22 AM CDT 12/23/2023 11:38 AM CDT Gisela Roper DIGITAL DATA ANALYST-CLEANER CARPET AND UPHOLSTERY LAB - CHEMI STRY ORDERABLES Performing Organization Address City/[facility]/ZIP Co de Phone Number [address] [address], [facility] [phone] * HEPATITIS C ANTIBODY (12/23/2023 11:22 AM CDT) Hepatitis C Antibody Non-react yoana Non-reac tive 12/23/2023 12:25 PM CDT [facility] Comment:Hepatitis C Antibody screen indicates no [...] CDT 12/23/2023 11:34 AM CDT Gisela Roper DIGITAL DATA ANALYST-CLEANER [employer]PHOLST[employer] LAB - CHEMI STRY ORDERABLES [address] [address], [facility] [phone] from Last 3 Months or Most Recently Relevant to Health Maintenance Care Teams Cafeteria Food Server Relationship Specialty Start Date End Date Unknown, Provider PCP - General 12/23/23
--- OUTSIDE RECORDS SUMMARY | 2024-11-15 15:51 | XMS_ITS | Clinical Summary ---
Author Organization [facility] Address [address] [place] [phone] Care Team Providers Care Temperature Inspector Name Role Phone Chito Cornejo MD Primary Care Provider + Allergies No known active allergies Medications aspirin [...] sense of smell 10/28/1985 Overview (12/30/2016): Anosmia Encounters Date Type Department Care Team Description 10/23/2024 9:43 PM [employer] - 10/24/2024 1:59 AM [employer] Emergency [facility] Emergency Department 1 [place] [address] Joleen Camejo MD Rectal bleeding (Primary Dx) Discharge Disposition: Discharge to home or self care from Last 3 Months Surgical History Surgery Date Site/Laterality Comments OTHER SURGICAL HISTORY Replacement of L shoulder CATARACT EXTRACTION Cataract extraction TOTAL SHOULDER ARTHROPLASTY 09/26/2009 - 09/25/2010 Left Medical History Medical History Date Comments Tension headache Headache, tensi on Hx Other Medical Headache, migra ine Family History Medical History Relation Name Comments Other Brother x3 Alive and well; Heart disease Father Cardiovascular disease; Other Mother faints; Pneumonia Mother pneumonia; Other Sister 2 Alive and well; Relation Name Status Comments Brother x3 Alive Father Mother Sister 1 Alive Sister 2 Social History Tobacco Use Types Packs/Day Years [...] on file Legal Sex Male 1:17 AM [employer] Gender Identity Not on file Sexual Orientation Not on file Obstetrics History Last Filed Vital Signs Vital Sign Reading Time Taken Comments Blood Pressure 137/85 10/24/2024 1:00 AM [employer] Pulse 62 10/24/2024 1:50 AM [employer] Temperature 36.7 C (98 F) 10/23/2024 7:43 PM [employer] Respiratory Rate 18 10/23/2024 7:45 PM [employer] Oxygen Saturation 92% 10/24/2024 1:50 AM [employer] Inhaled Oxygen Concentration - - Weight 127.5 kg (281 lb) 10/23/2024 7:43 PM [employer] Height 177.8 cm (5' 10 ) 10/23/2024 7:43 PM [employer] Body Mass Index 40.32 10/23/2024 7:43 PM [employer]UC[employer] DEAN Plan of Treatment Health Maintenance Due Date Last Done Comments Colon Cancer Screening-Colonoscopy 1958 Fall Risk Assessment 1958 Prostate Cancer Screening-PSA 1958 Hepatitis B Screening 1976 Pneumococcal vaccine 65+ (1 of 1 - PCV) 2008 Zoster Vaccine (1 of 2) 2008 Depression Screening 07/12/2018 07/12/2017 Well Visit 65+ 2023 DTaP/Tdap/Td Vaccine (2 - Td or Tdap) 07/09/2031 Hepatitis C Screening Completed 05/24/2015 Influenza Vaccine Discontinued Procedures Procedure Name Priority Date/Time Associated Diagnosis Comments HEMOGLOBIN AND HEMATOCRIT STAT 10/24/2024 12:58 AM [employer] B ABO / RH CONFIRMATION TESTING STAT 10/24/2024 12:58 AM [employer] EGFR STAT 10/23/2024 9:59 PM [employer] DIFFERENTIAL AUTO STAT 10/23/2024 9:5 9 PM [employer] ANTIBODY SCREEN STAT 10/23/2024 9:59 PM [employer] ABO/RH STAT 10/23/2024 9:59 PM [employer] TYPE AND SCREEN STAT 10/23/2024 9:59 PM [employer] PROTIME-INR STAT 10/23/2024 9:59 PM [employer] COMPREHENSIVE METABOLIC PANEL STAT 10/23/2024 9:59 PM [employer] CBC WITH AUTO DIFFERENTIAL STAT 10/23/2024 9:59 PM [employer] SERUM HEPATITIS PANEL Routine 05/24/2015 6:53 AM CDT from Last 3 Months or Most Recently Relevant to Health Maintenance Results * ABO / Rh Confirmation Testing (10/24/2024 12:58 AM [employer]) ABO/Rh Confirmation B Positive [facility] Blood 10/24/2024 12:5 8 AM [employer]AN 10/24/2024 1:02 AM [employer] DEAN Mora BANKS LAB BLOOD ORDERABLES Blanca l Result SHERRY DYSON REGINA) [address] [place] [address] [place] [place] [address] [facility] * Hemoglobin and hematocrit (10/24/2024 12:58 AM [employer]) Hgb 13.5 13.0 - 17.5 g/dL Hct 40.1 38.9 - 50.3 % [facility] [place]) Blood 10/24/2024 12:5 8 AM [employer]AN 10/24/2024 1:02 AM [employer] Joleen Camejo MD LAB BLOOD ORDERABLES Final Resul t [facility] ([place]) [address] [place] [address] [place] [address] * eGFR (10/23/2024 9:59 PM [employer]) eGFR >90 >=60 mL/min/1. 73 m2 Comment: [...] last reviewed 2021. Blood 10/23/2024 9:59 PM [employer]AN 10/23/2024 10:01 PM [employer]AN Mora BANKS LAB BLOOD ORDERABLES Blanca schultz Result [facility] ([place]) 1 [facility] Department of Laboratories [place], [place] [id number] * Differential, auto (10/23/2024 9:59 PM [employer]) Neutrophil abs 5.2 1.5 - 6.5 K/cumm Imm gran abs 0.1 0.0 - 0.1 K/cumm [facility] ([place]) Lymphocyte abs 2.6 0.8 - 3.3 K/cumm [facility] [place]) Monocyte abs 0.8 0.2 - 0.8 K/cumm [facility] ([place]) Eosinophil abs 0.3 0.0 - 0.5 K/cumm [facility] ([place]) Basophil abs 0.1 0.0 - 0.1 K/cumm [facility] ([place]) Neutrophil pct 57.6 % [facility] ([place]) Comment: Interpretive [...] revised on 2018. Monocyte pct 9.0 % [facility] ([place]) Comment: Interpretive Data [...] revised on 2018. Basophil pct 0.7 % [facility] ([place]) Comment: Interpretive Data Percent cell count reference ranges are not reported, since discordance with absolute values may lead to misinterpretation of CBC data. Current Interpretive Data was last revised on 2018. Blood 10/23/2024 9:59 PM [employer] 10/23/2024 10:01 PM [employer] DEAN Mora BANKS LAB BLOOD ORDERABLES Blanca l Result Performing Organization Address City/[facility] Co de Phone Number [facility] ([place]) 1 [facility] Department [place] [address] * CBC with auto differential (10/23/2024 9:59 PM [employer] DE[employer]) WBC 9.0 3.8 - 9.9 K/cumm Hgb 14.2 13.0 - 17.5 g/dL [facility] ([place]) Hct 42.9 38.9 - 50.3 % [facility] ([place]) Plt 207 150 - 400 K/cumm [facility] ([place]) MPV 9.5 9.1 - 12.3 fL [facility] [place]) RBC 5.20 4.30 - 5.80 M/cumm [facility] ([place]) MCV 82.5 81.3 - 96.4 fL [facility] [place]) MCH 27.3 27.1 - 33.3 pg [facility] ([place]) MCHC 33.1 32.3 - 35.7 g/dL [facility] ([place]) RDW CV 13.5 11.1 - 14.9 % [facility]) RDW SD 40.7 35.7 - 48.1 fL [facility] ([place]) NRBC abs 0.00 0.00 - 0.01 K/cumm [facility] ([place]) Blood 10/23/2024 9:59 PM [employer]AN 10/23/2024 10:01 PM [employer] DEAN Mora BANKS LAB BLOOD ORDERABLES Blanca l Result Performing Organization Address City/[facility] Co de Phone Number [facility] D[facility] ([place]) 1 [facility] [place] [place] [address] * ABO/Rh (10/23/2024 9:59 PM [employer]) ABO/Rh B Positive Blood 10/23/2024 9:59 PM [employer] 10/23/2024 10:01 PM [employer] DEAN Narrative [facility] ([place]) - 10/23/2024 11:41 PM [employer] DEAN Has the patient had Daratumumab or Isatuximab in the past 6 months?->Unknown Mora BANKS LAB BLOOD BANK TEST ORDER BRET Final Result Performing Organization Address [facility] Co de Phone Number [facility] D[facility] ([place]) 1 [facility] [place] [address] * (ABNORMAL) Protime-INR (10/23/2024 9:59 PM [employer]UC[employer] DEAN) Pathologist [facility] PT 14.4(H) 9.7 - 13.0 sec [facility]Y [facility] ([place]) INR 1.33(H) 0.90 - 1.20 [facility] ([place]) Comment: Interpretive data Oral anticoagulant therapeutic ranges: Venous thromboembolism prophylaxis or treatment: 2.0-3.0 CARDIOLOGY Standard range: 2.0-3.0 High-intensity range: 2.5-3.5 Refer to indication-specific guidelines for appropriate target ranges for prosthetic heart valve replacement. Current interpretive data was last revised on 2019. Blood 10/23/2024 9:59 PM [employer]AN 10/23/2024 10:01 PM [employer] DEAN Mora BANKS LAB BLOOD ORDERABLES Blanca l Result Performing Organization Address City/[facility] Co de Phone Number [facility] D[facility] ([place]) 1 [facility] [place] [place] [address] * Antibody screen (10/23/2024 9:59 PM [employer]UC[employer] DEAN) [place], indirect, Gel Interpretation Negative ABSC Blood 10/23/2024 9:59 PM [employer]AN 10/23/2024 10:01 PM [employer] DEAN Narrative [facility] ([place]) - 10/23/2024 11:41 PM [employer]UC[employer] DEAN Has the patient had Daratumumab or Isatuximab in the past 6 months?->Unknown Mora BANKS LAB BLOOD BANK TEST ORDER BRET Final Result [facility] ([place]) 1 [facility] Department [place] [address] * (ABNORMAL) Comprehensive metabolic panel (10/23/2024 9:59 PM [employer] DE[employer]) Sodium 138 135 - 145 mmol/L Potassium, pl 3.7 3.3 - 4.9 mmol/L [facility] Chloride 104 97 - 110 mmol/L [facility]) CO2 23 22 - 32 mmol/L [facility]) Anion gap 11 2 - 15 mmol/L [facility]) BUN 16 6 - 25 mg/dL [facility] Creatinine 0.81 0.80 - 1.30 [...] 2022. Calcium 9.2 8.5 - 10.3 mg/dL [facility] ([place]) Bilirubin, total 1.4(H) 0.1 - 1.2 mg/dL [facility] ([place]) Protein, pl 7.7 6.5 - 8.5 g/dL [facility] ([place]) Albumin 4.1 3.5 - 5.0 g/dL [facility] ([place]) Alk phos 63 40 - 130 Units/L [facility] ([place]) ALT 56(H) 7 - 55 Units/L [facility]) AST 31 10 - 50 Units/L [facility] ([place]) Blood 10/23/2024 9:59 PM [employer]AN 10/23/2024 10:01 PM [employer]UC[employer] DEAN Mora BANKS LAB BLOOD ORDERABLES Blanca l Result [facility] ([place]) 1 [facility] Department [place] [address] * Serum Hepatitis panel (05/24/2015 6:53 AM CDT) Pathologist [facility] HAV ab, IgM NON-REACTI VE NON-REACTI VE HISTORICAL RESULTS HBV surface ag NON-REACTI VE NON-REACTI VE HISTORICAL RESULTS HBV core ab, IgM NON-REACTI VE NON-REACTI VE HISTORICAL RESULTS HCV ab NON-REACTI VE NON-REACTI VE HISTORICAL RESULTS Hepatitis signal to cutoff ratio 0.05 <1.00 HISTORICAL RESULTS Serum 05/24/2015 6:53 AM CDT Narrative HISTORICAL RESULTS - 05/26/2015 10:00 AM CDT Test performed at [facility] [address] [place] [address] Director: KARLEY ADORNO DO,MPH Historical Provider LAB BLOOD ORDERABLES Blanca l Result HISTORICAL RESULTS from Last 3 Months or Most Recently Relevant to Health Maintenance Insurance [facility] [place] [facility] Address: [address] [address] [place] [address] Care Teams Temperature Inspector Relationship Specialty Start Date End Date Chito Cornejo MD PCP - General 04/11/18
--- OUTSIDE RECORDS SUMMARY | 2024-11-15 15:51 | XMS_ITS | Clinical Summary ---
Author Organization [facility] Address [address] [place] [address] Phone Care Team Providers Care Fusion Operator Name Role Phone Provider, None Primary Care Provider Unavailabl e Allergies No known active allergies Medications amphetamine-dex troamphetamine (ADDERALL) 30 MG Tablet TK 1 T PO D 0 8 Active Calcium Carbonate-Vitam in D (Oyster Shell Calcium/D) 500-200 MG-UNIT Tablet Take 1 Tablet by mouth. Active naloxone HCl (Narcan) 4 MG/0.1ML Liquid 1 [place] by Nasal route as needed for Opioid Reversal (opioid overdose). administer for symptoms of overdose (severe sleepiness, breathing problems, not responsive). Call 911. May use additional dose to repeat 1 spray intranasally in 2-3 minutes if needed. 2 Each 3 Active Active Problems No known active problems Family History Medical History Relation Name Comments Diabetes Father Heart Attack Father No Known Problems Maternal Grandfather No Known Problems Maternal Grandmother No Known Problems Mother No Known Problems Paternal Grandfather No Known Problems Paternal Grandmother Relation Name Status Comments Father Maternal Grandfather Maternal Grandmother Mother Alive Paternal Grandfather Paternal Grandmother Social History Tobacco Use Types Packs/Day Years Used Date Smoking Tobacco: Never Smokeless Tobacco: Never Tobacco Cessation:Counseling Given: Yes Alcohol Use Standard Drinks/Week Comments No 0 (1 standard drink = 0.6 oz pur e alcohol) Sexually Active Control Partners Comments Not Currently Female Sex and Gender Information Value Date Recorded Sex Assigned at Not on file Legal Sex Male 7:33 PM CDT Gender Identity Not on file Sexual Orientation Not on file Last Filed Vital Signs Vital Sign Reading Time Taken Comments Blood Pressure 121/82 05/01/2023 4:44 AM CDT Pulse 60 05/01/2023 4:44 AM CDT Temperature 36.6 C (97.9 F) 05/01/2023 1:25 AM CDT Respiratory Rate 18 05/01/2023 4:44 AM CDT Oxygen Saturation 96% 05/01/2023 4:44 AM CDT Inhaled Oxygen Concentration - - Weight 119.7 kg (264 lb) 05/01/2023 1:25 AM CDT Height 177.8 cm (5' 10 ) 05/01/2023 1:25 AM CDT Body Mass Index 37.88 05/01/2023 1:25 AM CDT Plan of Treatment Health Maintenance Due Date Last Done Comments Hepatitis C Virus (HCV) Screening 1958 Colonoscopy 2003 Colorectal Cancer Screening 2003 Cologuard 2008 Immunochemical Fecal Occult Blood 2008 Pneumococcal Immunization (5 0+ years) (1 of 1 - PCV) 2008 Zoster Immunization (1 of 2) 2008 PSA Discussion 2013 Influenza Immunization (#1) 2024 SARS-COV-2 Immunization ( - season) 2024 Respiratory Syncytial Virus (RSV) Immunization (Adult) (1 - 1-dose 75+ series) 2033 DTaP/Tdap/Td Immunization Discontinued 07/09/2021 TdaP Immunization Completed 07/09/2021 Hepatitis B Immunization Aged Out No longer eligible based on patient's age to complete this topic Meningococcal Immunization (ACWY) Aged Out No longer eligible based on patient's age to complete this topic Rotavirus Immunization Aged Out No lo nger eligible based on patient's age to complete this topic Insurance [facility] Care Teams Fusion Operator Relationship Specialty Start Date End Date Provider, None [place] PCP - General 05/01/23
--- OUTSIDE RECORDS SUMMARY | 2024-11-15 15:51 | XMS_ITS | Clinical Summary ---
Author Organization [facility] Address [address] [place] [address] Care Team Providers Care Supervisor [employer] Name Role Phone Unknown, Provider Primary Care Provider Unavaila ble Source Comments [facility],non-owned Affiliates and Associated Physician Practices is amultiple site organization consisting of ambulatory clinics and hospital sitesin [place], [place] and [place]. This disclosure is being madepursuant to the Care Everywhere program and may not contain all information available regarding this patient. Last updated 18.[facility] Allergies No known active allergies Medications * [...] Info) Description 03/18/2025 11:00 AM CDT Appointment [facility] [address] [place] [phone] Gisela Roper, RADIO DISC JOCKEY-FACE MAN [address] [place] [address] [address] [place] [address] 03/18/2025 12:30 PM CDT Office Visit [facility] - GI [address] [place] [address], [place] [id number] Gisela Roper, RADIO DISC JOCKEY-FACE MAN [address] [place] [address] [address] [place] [address] Health Maintenance Due Date Last Done Comments COLOGUARD (AGES 45-75) - COL ON CA SCREENING 1958 COLON MONITORING 1958 COLONOSCOPY - COLON CA SCREENING 1958 CT COLONOGRAPHY - COLON CA SCREENING 1958 Colorectal Cancer Screening 1958 FIT - COLON CA SCREENING 1958 FLEX SIG - COLON CA SCREENING 1958 DTAP/TDAP/TD VACCINES (1 - Tdap) 1977 PNEUMOCOCCAL VACCINE 50+ (1 of 1 - PCV) 2008 ZOSTER VACCINE (1 of 2) 2008 COVID-19 VACCINE (2023-2 5 season) 2024 INFLUENZA VACCINE (#1) 2024 DEPRESSION SCREENING 09/26/2024 MEDICARE AWV CALENDAR YEAR 2024 SCREENING FOR DIABETES 12/22/2026 12/23/2023 Respiratory Syncytial Virus (RSV) Vaccine Pt: or over 60 yrs (1 - 1-dose 75+ series) 2033 HEPATITIS C SCREENING Completed 12/23/2023 HEPATITIS B VACCINE Aged Out No longe r eligible based on patient's age to complete this topic HIB VACCINE Aged Out No longer eligi ble based on patient's age to complete this topic HPV VACCINE Aged Out No longer eligi ble based on patient's age to complete this topic MENINGOCOCCAL (Group B) VACCINE Aged Out No longer eligible based on patient's age to complete this topic MENINGOCOCCAL VACCINE Aged Out No helen socrates eligible based on patient's age to complete this topic Procedures Procedure Name Priority Date/Time Associated Diagnosis [...] 7 - 26 mg/dL 12/23/2023 12:06 PM [facility] Creatinine 0.99 0.71 - 1.16 mg/dL 12/23/2023 12:06 PM [facility] Sodium 139 136 - 145 mmol/L 12/23/2023 12:06 PM [facility] Potassium 3.6 3.5 - 4.5 mmol/L 12/23/2023 12:06 PM [facility] Chloride 107 98 - 107 mmol/L 12/23/2023 12:06 PM [facility] CO2 24 22 - 29 mmol/L 12/23/2023 12:[address] [facility] Glucose 68(L) 70 - 115 mg/dL 12/23/2023 12:06 PM [facility] Calcium 8.8 8.4 - 10.2 mg/dL 12/23/2023 12:06 PM [facility] Protein Total 7.4 6.0 - 8.3 g/dL 12/23/2023 12:06 PM [facility] Albumin 3.5 3.4 - 5.0 g/dL 12/23/2023 12:06 PM [facility] Bilirubin Total 1.0 0.2 - 1.2 mg/dL 12/23/2023 12:06 PM [facility] Alkaline Phosphatase 66 40 - 150 U/L 12/23/2023 12:06 PM [facility] ALT 43 5 - 55 U/L 12/23/2023 12:06 PM [facility] AST 29 5 - 34 U/L 12/23/2023 12:06 PM [facility] Anion Gap 8 6 - 16 12/23/2023 12:06 PM [facility] BUN/Creatinine Ratio 16 7 - 23 12/23/2023 12:06 PM [facility] Osmolality Calculated 287 275 - 295 mOsm/kg 12/23/2023 12:06 PM [facility] Albumin/Globulin Ratio 0.9(L) 1.1 - 2.3 12/23/2023 12:06 PM [facility] eGFR by CKD-EPI 85(L) >=90 mL/min/1.7 3 m2 12/23/2023 12:06 PM [facility] Blood BLOOD SPECIMEN / Unknown Lab Venipuncture / Unknown 12/23/2023 11:22 AM CDT 12/23/2023 11:38 AM CDT Gisela Roper RADIO DISC JOCKEY-FACE MAN LAB - CHEMI STRY ORDERABLES [facility] [address] [place] [address], [facility] [phone] * HEPATITIS C ANTIBODY (12/23/2023 11:22 AM CDT) Hepatitis C Antibody Non-react yoana Non-reac tive 12/23/2023 12:25 PM CDT [facility] Comment:Hepatitis C Antibody screen indicates no [...] CDT 12/23/2023 11:34 AM CDT Gisela Roper RADIO DISC JOCKEY-FACE MAN LAB - CHEMI STRY ORDERABLES [facility] [address] [place] [address], [facility] [phone] from Last 3 Months or Most Recently Relevant to Health Maintenance Care Teams Supervisor [employer] Relationship Specialty Start Date End Date Unknown, Provider PCP - General 12/23/23
--- OUTSIDE RECORDS SUMMARY | 2024-11-15 15:51 | XMS_ITS | Continuity of Care Document ---
Author Organization [facility] Address [id number] [place] [address] [address] [place] [address] Phone Care Team Providers Care Pairer Odds Name Role Phone Sandro Newmna MD Unavailable Unavailable Procedures Procedure Date OFFICE/OUTPATIENT VISIT, [facility] OPHTHALMIC BIOMETRY Advance Directives Directive Yes / No Effective Date File Name No Information Encounters Encounter Description Practice Location Reason(s) For Visit Diagnoses Date Provider Providers Copied on Encounter OFFICE/OUTPAT IENT VISIT, [facility], [address] [place] [address], [place], [place], [id number], tel:[phone] [facility] [place] No Information 7 Paty Jo. [address] [place] [address], [address] [place] [address], [facility], . tel:[phone] Referring Provider: Sandro [place], [address] [place] [address], [place], [place], [facility]. tel:[phone] Family History Family Member Type Diagnosis Age At Onset No Information Payers Payer name Insurance type Covered libertarian ID Authoriza emory(s) [facility](Not Providers) CI [id number] Social History Type Description Quantity Date Captured Comments Sex Male Smoking Status No Information Chief Complaint And Reason For Visit No Information Plan Of Treatment Date Type Action Status No Information History Of Present Illness Encounter Date Complaint History Of Prese nt Illness No Information Instructions Date Instruction Additional Infor mation No Information Assessments Type Assessment Date No Information
[2024-11-15 17:03] LABS: Prostate Specific Antigen 2.8 ng/mL (< OR = 4.0)
[2024-11-21 11:54] LABS: Testosterone Free 40.1 pg/mL (35.0-155.0); Testosterone Total 348 ng/dL (250-1100)
== END 2024-11-15 15:47 | disposition home or self-care (01) ==
LOC: ANHLAB 15:48
PROVIDERS: PCP Internal Medicine; Visit Provider Internal Medicine Hematology & Oncology
DX: C61 Malignant neoplasm of prostate (principal)
CPT/HCPCS: 36415; 84153; 84402; 84403

== ENCOUNTER 2024-11-26 13:41 | Outpatient (CLI) | payer MEDICARE, SELFPAY | END 2024-11-26 13:42 | disposition home or self-care (01) | PROVIDERS: PCP Internal Medicine; Visit Provider Internal Medicine Hematology & Oncology | DX: C61 Malignant neoplasm of prostate (principal) | CPT/HCPCS: 78815; A9596 ==

== ENCOUNTER 2025-01-10 12:00 | Outpatient (CLI) | payer MEDICARE, SELFPAY ==
--- NOTE | ~2025-01-10 | XR_ITS ---
Clinical Indication: Prostate cancer PA and lateral views of the chest: Comparison: 10/13/2008 Findings: Stable calcified left upper lobe granuloma. The lungs are otherwise clear, without evidence of focal consolidation or pleural effusion. Cardiomediastinal silhouette is within normal limits. L eft shoulder arthroplasty partially imaged. Impression: No acute abnormality. Reviewed, dictated and finalized at location . Impression: No acute abnormality.
--- OUTSIDE RECORDS SUMMARY | 2025-01-10 12:35 | XMS_ITS | Continuity of Care Document ---
Author Organization [facility] Address [id number] [place] [address] [address] [place] [address] Phone Care Team Providers Care Hotel Maintenance Technician Name Role Phone Sandro Newman MD Unavailable Unavailable Procedures Procedure Date OFFICE/OUTPATIENT VISIT, [facility] OPHTHALMIC BIOMETRY Advance Directives Directive Yes / No Effective Date File Name No Information Encounters Encounter Description Practice Location Reason(s) For Visit Diagnoses Date Provider Providers Copied on Encounter OFFICE/OUTPAT IENT VISIT, [facility], [id number] [place] [address], [place], [place], [id number], tel:[phone] [facility] [place] No Information 7 [address] [place] [address], [address], [employer], . tel:[phone] Referring Provider: Sandro Spring, [address] [place] [address], [place], [place], [employer]. tel:[phone] Family History Family Member Type Diagnosis Age At Onset No Information Payers Payer name Insurance type Covered democrat ID Authoriza emory(s) [facility](Not Providers) CI [id number] Social History Type Description Quantity Date Captured [...]
--- OUTSIDE RECORDS SUMMARY | 2025-01-10 12:36 | XMS_ITS | Clinical Summary ---
Author Organization [facility] Address [address] [place] [address] Care Team Providers Care Slash Trimmer Name Role Phone Unknown, Provider Primary Care Provider Unavaila ble Source Comments [facility],non-owned Affiliates and Associated Physician Practices is amultiple site organization consisting of ambulatory clinics and hospital sitesin [place], [place], [place] and [place]. This disclosure is being madepursuant to the Care Everywhere program and may not contain all information available regarding this patient. Last updated 18.[facility] Allergies No known active allergies Medications * Be aware that medications may not be up to date on this document. Alwaysverify current medications with the patient. 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 Gender Identity Not on file Sexual Orientation [...] Info) Description 03/18/2025 11:00 AM CDT Appointment [facility] [address] [place] [id number] Gisela Roper, [employer] SUPPORT EQUIPMENT REPAIRER [address] [place] [address] [address] [place] [address] 03/18/2025 12:30 PM CDT Office Visit [facility] [address] [place] [address], [place] [id number] Gisela Roper, [employer] SUPPORT EQUIPMENT REPAIRER [address] [place] [address] [address] [place] [address] Health Maintenance Due Date Last Done Comments [...] VACCINE (1 of 2) 2008 COVID-19 VACCINE ( - 2023-2 5 season) 2024 DEPRESSION SCREENING 09/26/2024 MEDICARE AWV CALENDAR YEAR 2024 INFLUENZA VACCINE (Season Ended) 2025 SCREENING FOR DIABETES 12/22/2026 12/23/2023 Respiratory Syncytial [...] to complete this topic MENINGOCOCCAL (Group B) VACC INE SHARED DECISION-MAKING Aged Out No longer eligibl e based on patient's age to complete this topic MENINGOCOCCAL GROUPS A/C/Y/W VACCINE Aged Out No longer eligible b ased on patient's age to complete this topic [...] 7 - 26 mg/dL 12/23/2023 12:06 PM [facility] Creatinine 0.99 0.71 - 1.16 mg/dL 12/23/2023 12:06 PM [facility] Sodium 139 136 - 145 mmol/L 12/23/2023 12:06 PM [facility] Potassium 3.6 3.5 - 4.5 mmol/L 12/23/2023 12:06 PM [facility] Chloride 107 98 - 107 mmol/L 12/23/2023 12:06 PM [facility] CO2 24 22 - 29 mmol/L 12/23/2023 12:06 PM [facility] Glucose 68(L) 70 - 115 mg/dL 12/23/2023 12:06 PM [facility] Calcium 8.8 8.4 - 10.2 mg/dL 12/23/2023 12:06 PM [facility] Protein Total 7.4 6.0 - 8.3 g/dL 12/23/2023 12:06 PM [facility] Albumin 3.5 3.4 - 5.0 g/dL 12/23/2023 12:06 PM [facility] Bilirubin Total 1.0 0.2 - 1.2 mg/dL 12/23/2023 12:06 PM [facility] Alkaline Phosphatase 66 40 - 150 U/L 12/23/2023 12:06 PM [facility] ALT 43 5 - 55 U/L 12/23/2023 12:06 PM [facility] AST 29 5 - 34 U/L 12/23/2023 12:06 PM [facility] Anion Gap 8 6 - 16 12/23/2023 12:06 PM [facility] BUN/Creatinine Ratio 16 7 - 23 12/23/2023 12:06 PM [facility] Osmolality Calculated 287 275 - 295 mOsm/kg 12/23/2023 12:06 PM [facility] Albumin/Globulin Ratio 0.9(L) 1.1 - 2.3 12/23/2023 12:06 PM [facility] eGFR by CKD-EPI 85(L) >=90 mL/min/1.7 3 m2 12/23/2023 12:06 PM [facility] Blood BLOOD SPECIMEN / Unknown Lab Venipuncture / Unknown 12/23/2023 11:22 AM T 12/23/2023 11:38 AM [facility] us Gisela Roper [employer] SUPPORT EQUIPMENT REPAIRER LAB - CHEMISTRY ORD ERABLES Final Result [facility] [address] [place] [address], [facility] [phone] * HEPATITIS C ANTIBODY (12/23/2023 11:22 AM CDT) Hepatitis C Antibody Non-react yoana Non-reac tive 12/23/2023 12:25 PM CDT [facility] Comment:Hepatitis C Antibody screen indicates no [...] CDT 12/23/2023 11:34 AM CDT Gisela Roper [employer] SUPPORT EQUIPMENT REPAIRER LAB - CHEMISTRY ORD ERABLES Final Result [facility] [address] [place] [address], [facility] [phone] from Last 3 Months or Most Recently Relevant to Health Maintenance Insurance [employer] MANAGED MEDICARE ADV Care Teams Slash Trimmer Relationship Specialty Start Date End Date Unknown, Provider PCP - General 12/23/23
--- OUTSIDE RECORDS SUMMARY | 2025-01-10 12:36 | XMS_ITS | Data Portability ---
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 PLMD Iron deficiency Vit E deficiency Plan: The following were reviewed and explained to the patient: Diagnostic sleep study 03/17/16 AHI = 37 [facility] titration sleep study 10/11/21 sleep onset = 5.5 minutes, REM onset = 53.5 minutes, ResMed medium AirFit F30i full face mask @ 12 cmH2O, PLMI = 26 [facility] titration sleep study 02/22/23 sleep onset 4.5 minutes, REM onset = 48 minutes, ResMed medium AirFit F20 full face mask @ 13-15 cmH2O, PLMI = 16 BUN 09/01/23 26 mg% Ferritin 09/01/23 47 ng/mL Ferritin 12/12/23 40 ng/mL Ferritin 02/13/24 50 ng/mL Ferritin 06/20/24 77 ng/mL Ferritin 09/12/24 95 ng/mL Ferritin 11/12/24 140 ng/mL Alpha tocopherol 09/01/23 5.2 mg/L Alpha tocopherol 12/12/23 5.9 mg/L Alpha tocopherol 02/13/24 7.3 mg/L Alpha tocopherol 06/20/24 6.5 mg/L Alpha tocopherol 09/12/24 6.2 mg/L Alpha tocopherol 11/12/24 10.0 mg/L Gamma tocopherol 09/01/23 1.2 mg/L Gamma tocopherol 12/12/23 0.9 mg/L Gamma tocopherol 02/13/24 0.8 mg/L Gamma tocopherol 06/20/24 1.5 mg/L Gamma tocopherol 09/12/24 1.5 mg/L Gamma tocopherol 11/12/24 <1.0 mg/L Elevation in periodic limb movement index may be contributed by loratadine. Non-pharmacologi c therapy options for periodic limb movement disorder include avoidance of aggravating drugs and substances, mental alerting activities, short daily hemodialysis for patients in renal failure, exercise, leg massage, stretching calf muscles, use of a weighted blanket and applied heat. Patient will cut down on alcohol consumption and caffeine intake. Creatinine, Vitamin B12, RBC folate, Iron, TIBC, ESR, Magnesium, Hgb and Hct levels are within normal limits. Patient will continue Vitamin E 200 IU/day to keep the alpha tocopherol > 7.0 mg/L and to keep the gamma tocopherol > 0.5 mg/L. Patient will continue FeSO4 325 mg + Vit C 500 mg but decrease from daily to every other day to keep the ferritin > 75 ng/ml. We will hold off on dopaminergic therapy for now. PAP compliance downloaded and interpreted x 20 minutes. Data reviewed and explained to the patient. Average apnea/hypopnea index (AHI) is 0.3. Patient used PAP > 4 hours 12% of the time. PAP is set at 14-15 cmH2O. PAP will remain at 14-15 cmH2O. Keep EPR standard multimedia coordinator. Keep ramp off. Keep humidifier level at 4. Oxygen supplementation: none Patient is benefiting from PAP therapy. Encouraged patient to maintain PAP use more than 70% of the time. Statement of PAP use and benefits will be sent to the home care store. Educated the patient on problems and solutions associated with positive airway pressure (PAP) use. Difficulty tolerating pressure, mask leaks, intolerance of interface, nasal congestion, claustrophobic response, dry mouth, and unintentional mask removal during sleep were covered. Provided the patient with a list of local home care stores where positive airway pressure (PAP) units, accoutrement, and services are available. Home care store selection is based on patient's insurance carrier. [facility]. A major predictor of success with use of PAP is follow-up with both the respiratory supplier and the treating physician. The download results can show the treating physician information about adherence to treatment, residual AHI while on treatment and presence of large mask leakage. This information is especially helpful if the patient has residual sleepiness despite treatment. General information on sleep disordered breathing, evaluation of sleep disordered breathing, treatment with PAP therapy, and living with PAP therapy were covered. We discussed with the patient the impact of weight on: Sleep disordered breathing Hyperlipidemia OA PVD DVT We discussed with the patient the benefit of PAP therapy on: Sleep disordered breathing Rhinitis Educated the patient on sleep hygiene measures. Relaxing rituals to rest easy, understanding foods with positive and negative impact on sleep, creating a peaceful sleep environment, timing of exercise, using herbal sleep aids, and practicing sleep-friendly meditation were covered. To determine how much sleep is needed, the patient will assess where he falls on the spectrum, examine what lifestyle factors such as work schedules and stress are affecting the quality and quantity of sleep. In general, adults need 7-9 hours of sleep. Educated the patient regarding foods that promote sleep. These include but are not limited to cherries, bananas, toast, oatmeal, and warm milk. Educated the patient regarding foods and drinks to avoid before bedtime. These include but are not limited to aged cheese, chocolate, spicy foods, tomato-based sauces, soy, ginseng tea and processed meat. Advocated influenza vaccination annually and pneumonia vaccination in 2027. Advocated weight loss through diet and exercise. Patient's ideal body weight according to height and gender is up to 180 lbs. Encouraged patient to adjust caloric intake to maintain/achieve ideal body weight, emphasizing on fruits, vegetables, whole grains, and fat-free or low-fat products. These include lean meats, poultry, fish, beans, eggs, and nuts and foods that are low in saturated fats, trans-fats, cholesterol, salt (sodium), and glycemic index. Stressed the importance of regular exercise up to the patient's capacity limits. In this case, we recommend 20 min daily walking, 2 days a week of resistance training. Patient to monitor BP daily and bring records to PCP for further management. Follow-up: 3 months, January 2025 [email or web address] Not available 11/15/2024 14:52:51 01/08/2025 01/08/2025 This note is dictated and transcribed by [employer]. Group Worker variances may occur. Despite proofreading, typographical errors may occur. Occasional wrong-word or '[id number]' substitutions may have occurred due to the inherent limitations of voice recording. Read the chart carefully and recognize, using context, where substitutions have occurred. [email or web address] Not available 01/08/2025 14:41:15 Plan of Treatment Reminders Order Date Submit Date Provider Last Modified By Organization Details Last Modified Time Details Appointments Any 2024 08:45A M Andres Foreman MD Not available Not available Not available Any 2024 09:30A Janet espinal MD Not available Not available Not available Establish ed Patient 2024 03:00P M Roman Escobar DPM Not available Not available Not available Lab lipid panel, serum [address] (Lab), [address] [place], [address], 11/13/2024 11:28:55 CBC w/ auto diff [address] (Lab), [address] [place], [address], 11/13/2024 11:28:55 TSH, serum or plasma [address] (Lab), [address] [place], [address], 11/13/2024 11:28:55 CMP, serum or plasma [address] (Lab), [address] [place], [address], 11/13/2024 11:28:55 vitamin D, 25-hydrox y, total, serum [address] (Lab), [address] [place], [address], 11/13/2024 11:28:56 vitamin B12 + folate, serum or blood [address] (Lab), [address] [place], [address], 11/13/2024 11:28:56 ferritin, serum or plasma [address] (Lab), [address] [place], [address], 11/13/2024 10:22:12 vitamin E, serum [address] (Lab), [address] [place], [address], 11/13/2024 10:22:12 Referral vascular surgeon referral - Please call patient to schedule an appointme nt. Thank you. 2024 025 [facility] Nash Plummer MD, [address] [facility], [address], [place], [address], 11/13/2024 16:05:21 ophthalmo logist referral - Please call patient to schedule an appointme nt. Thank you 2024 025 [facility], [address] [facility] [facility], [place], [address], 11/13/2024 15:55:15 wound care referral - Please call patient to schedule an appointme nt. Thank you. 2024 025 [facility], [address] [facility], [address], [place], [address], 11/13/2024 15:55:16 podiatris t referral 2024 025 [email or web address] Roman Escobar DPM, [address] [facility], [address], [place], [address], 11/13/2024 15:24:40 gastroent erologist referral - Please call patient to schedule an appointme nt. Thank you. 2024 025 [email or web address] Elena Bhagat MD, [address] [facility], [address], [place], [address], 11/13/2024 15:11:37 Procedures colonosco py screening (PROC) - Please call patient to schedule an appointme nt. Thank you. 2024 025 [email or web address] Austin rOlando MD, [address] [place], [address], 12/13/2024 08:42:04 Surgeries None recorded. Imaging None recorded. Medication Orders ferrous sulfate 325 mg (65 mg iron) tablet 2024 025 [id number], [address], [place], [place], [id number], 11/15/2024 14:51:25 Vitamin C 500 mg tablet 2024 025 [facility]461, [address], [place], [place], [id number], 11/15/2024 14:51:24 vitamin E mixed 200 unit tablet 2024 025 [facility]42103, [address], [place], [place], [id number], 11/13/2024 10:22:21 Patient TargetsNo targets recorded. Patient Instructions Encounter Date Encounter Id Patient Instructions Last Modified By Organization Details Last Modified Time 10/19/2024 [id number] 1. Prostate ultrasound with biopsies performed today 2. We will schedule him for a telehealth in the next 7-10 days discussed the results or he can come into the office Not available 10/19/2024 16:41:51 11/02/2024 [id number] 1. The patient needs to be referred for consultation for radiation therapy Not available 11/02/2024 14:44:24 Reason for Referral Smash Piecer Referral for Onyc homycosis of toenails Referring Physician: Yarelis [facility], Encounter Date: 11/13/2024 Arabic Teacher Referral for Cataract Please call patient to schedule an appointment. Thank you Referring Physician: Yarelis [facility], Encounter Date: 11/13/2024 Manager Protein Referral for Liver enzymes level above reference range Please call patient to schedule an appointment. Thank you. Referring Physician: Yarelis [facility], Encounter Date: 11/13/2024 Vascular Surgeon Referral fo r Peripheral vascular disease Please call patient to schedule an appointment. Thank you. Referring Physician: Yarelis [facility], Encounter Date: 11/13/2024 Please call patient to sched ule an appointment. Thank you. Referring Physician: Yarelis [facility], Encounter Date: 11/13/2024 Results Created Date Observation Date Name Description Value Unit Range Abnormal Flag Note LastModifiedBy Organization Detail LastModifiedTime 11/12/19 25 11/15/2024 RYANN TIN ferritin 140 NG/mL 24-380 normal Not Available [facility] [address] [place], [address], 11/15/2024 13:14:09 11/12/19 25 11/15/2024 VITAM IN E (TOCO PHERO L) vitamin E, alpha tocopherol 10.0 mg/L 5.7-19 .9 Level s of alpha -toco phero l <5 mg/L are consi stent with Vitam in E defic iency in adult s. Not Available [facility] [address] [place], [address], 11/15/2024 13:14:11 11/12/19 25 11/15/2024 VITAM IN E (TOCO PHERO L) vitamin E, beta gamma tocopherol <1.0 mg/L <4.4 (Note ) Vitam in suppl ement ation withi n 24 hours prior to blood draw may affec t the accur acy of resul ts. This test was devel oped and its doug tical perfo rmanc e pablo cteri stics have been deter mined by [facility]. It has not been clear ed or appro adrianna by the FDA. This assay has been valid ated pursu ant to the CLIA regul ation s and is used for clini preeti purpo ses. MDF med fusio n [address] [facility] [address] [facility] [address] [phone] [facility] Dobson MD, PhD Not Available [facility] [address], [place], [address], 11/15/2024 13:14:11 12/15/19 25 12/14/2024 imagi ng/di agnos tic resul t No observ ation record ed. [facility] [address] , [place], [address], 12/14/2024 19:56:15 Result Notes None recorded. Problems Name Problem SNOMED Code Status Onset Date Resolution Date Notes Provider Name and Address Organization Details Recorded Time Current tear of medial cartilage AND/OR meniscus of knee Active Not Available [facility] 3 12:49:31 Hyperlipid emia 16388396 Active 2022 Yarelis bryan MD [address], [address], [place], [address] , [place] [facility] 3 10:09:14 Obstructiv e sleep apnea syndrome 90357281 Active 2022 Yarelis bryan MD [address], [address], [place], [address] , [place] [facility] [employer] 3 10:09:18 Vitamin D deficiency 96076562 Active 2022 Yarelis bryan MD [address], [address], [place], [address] , [place] [facility] 3 10:11:00 Deep venous thrombosis of lower extremity 512999436 Active 2022 Yarelis bryan MD [address], [address], [place], [address] , [place] [facility] 3 10:21:28 Cataract 907094976 Active 2022 Yarelis bryan MD [address], [address], [place], [address] , [place] [facility] 3 10:30:54 Periodic limb movement disorder 836804813 Active 2022 Andres Foreman MD [address], [address], [place], [address] , [place] [facility] 3 10:22:48 Iron deficiency 59372877 Active 2022 Andres Foreman MD [address], [address], [place], [address] , [place] [facility] 3 11:47:50 Vitamin E deficiency 46599483 Active 2022 Andres Foreman MD [address], [address], [place], [address] , [place] [facility] 3 11:47:59 Serum vitamin B12 below reference range 625571679 Active 2023 Yarelis bryan MD [address], [address], [place], [address] , [place] [facility] 4 17:22:48 Peripheral venous insufficie ncy 83749588 Active 2023 Roman Escobar DPM [address], [address], [place], [address] , [place] [facility] 4 12:21:07 Xerosis due to atopic dermatitis 873878256 Active 2023 Roman Escobar DPM [address], [address], [place], [address] , [facility] 4 15:25:23 Prostate nodule 0610877024757 09 Active 2023 Shahbaz Hendrix MD [address], [address], [place], [address] , [facility] 4 15:20:38 Influenza caused by Influenza A virus 830039432 Active 2023 Jean Carlos Curry LPN null, [facility] 4 12:54:02 Upper respirator y infection 43183024 Active 2023 Jean Carlos Curry LPN null, [facility] 4 12:58:26 Prostate specific antigen above reference range 966064906 Active 2024 Maryann gillette, [facility] 5 09:06:08 Pain in toe 318254115 Active 2024 Roamn Escobar DPM [address], [address], [place], [address] , [facility] 5 11:30:41 Dystrophia unguium 77887311 Active 2024 Roman Escobar DPM [address], [address], [place], [address] , [facility] 5 11:30:41 Primary adenocarci noma of prostate Active 2024 Shahbaz Hendrix MD [address], [address], [place], [address] , [facility] 5 14:44:07 Malignant tumor of prostate 963218454 Active 2024 Maryann gillette, [facility] 5 09:08:34 Peripheral vascular disease 444581977 Active 2024 Yarelis bryan MD [address], [address], [place], [address] , [facility] 5 10:51:27 Liver enzymes level above reference range 233536212 Active 2024 Yarelis bryan MD [address], [address], [place], [address] , [facility] 5 10:51:27 Onychomyco sis of toenails 791684313 Active 2024 Yarelis bryan MD [address], [address], [place], [address] , [facility] 5 10:51:27 Ankle pain 641475597 Active 2024 Yarelis rbyan MD [address], [address], [place], [address] , [facility] 5 10:51:27 Multiple open wounds of lower leg 313109406 Active 2024 Yarelis bryan MD [address], [address], [place], [address] , [facility] 5 10:51:27 Unable to cut own toenails 622093551 Active 2024 Roman Escobar DPM [address], [address], [place], [address] , [facility] 5 14:41:25 Notes:Medical History: Catar act Bilateral hearing loss/tinnitus Rhinitis Persistent early REM onset Obesity with severe OSAHS, AHI = 37, 03/17/16, on autoCPAP c/o IVRC Mild LAE, EF 58% Hyperlipidemia Hemorrhoids Prostate ca PLMD Iron deficiency Vit B12 deficiency Vit D deficiency OA PVD Left DVT on Xarelto Epidermal cyst Procedure History: Left shoulder replacement 2014 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 Procedures Surgical History Date Name Laterality Status Provider Name and Address Organization Details Recorded Time 5 Nail Debridement completed Roman Escobar DPM [address], [address], [place], [address], [facility] 01/08/2025 14:40:57 5 2. Prostate Biopsy completed Shahbaz Hendrix MD [address], [address], [place], [address], [facility] 10/19/2024 16:41:13 4 Nail Debridement completed Roman Escobar DPM [address], [address], [place], [address], [facility] 07/10/2024 13:10:24 4 Wound Care-Podiatry completed Daniel Yo RN [facility] 06/20/2024 15:11:40 4 Wound Care-Podiatry completed Norma Ellis RN [facility] 05/02/2024 12:17:37 4 Wound Care-Podiatry completed Roman Escobar DPM [address], [address], [place], [address], [facility] 04/25/2024 12:31:52 4 Nail Debridement completed Parker Abdi DPM [address], [address], [place], [address], [facility] 12/05/2023 10:15:10 4 Trigger Point Injection completed Parker Abdi DPM [address], [address], [place], [address], [facility] 11/24/2023 16:01:38 4 Unna boot - LE edema completed Parker Abdi DPM [address], [address], [place], [address], [facility] 11/24/2023 16:01:14 total shoulder replacement completed Mar Daly Adriana [facility] 07/28/2023 10:02:28 Cataract Surgery completed Mar Daly Adriana [facility] 07/28/2023 10:02:36 Imaging Results Imaging Date Name Status LastModified by Organiz ation Details LastModified Time 12/14/2024 imaging/diagn ostic result active [facility] [address], [place], [address], 12/14/2024 19:56:15 Procedure Notes None recorded. Medical Equipment None Reported. Allergies No known drug allergies Medications Name Sig Start Date Stop Date Status Note LastModified by Organization Details LastModified Time atorvastati n 40 mg tablet TAKE 1 TABLET BY MOUTH EVERY DAY 2023 active Not Available Not Available Not Avai lable vitamin E 200 unit capsule Take 1 capsule every day by oral route. 12/20 completed Not Available Not Available Not Available ammonium lactate 12 % lotion APPLY A THIN LAYER TO BLE TWICE DAILY 08/31 completed Not Available Not Available Not Available Vitamin C 500 mg tablet Take 1 tablet every other day by oral route. 2024 active Not Available Not Available Not Avai lable hydrocodone 5 mg-acetamin ophen 325 mg tablet TAKE 1 TO 2 TABLETS BY MOUTH EVERY 4 HOURS FOR UP TO 5 DAYS NEEDED FOR MODERATE TO SEVERE PAIN 07/28 completed Not Available Not Available Not Available ciprofloxac in 500 mg tablet take 1 tablet twice a day day before procedure , day of procedure and day after 11/02 completed Not Available Not Available Not Available sulfamethox azole 800 mg-trimetho prim 160 mg tablet TAKE 1 TABLET BY MOUTH TWICE DAILY FOR 7 DAYS 08/31 completed Not Available Not Available Not Available peg-electro lyte solution 420 gram oral solution 08/31 completed Not Available Not Available Not Available triamcinolo ne acetonide 0.1 % topical cream APPLY THIN LAYER TOPICALLY TO THE AFFECTED AREA TWICE DAILY FOR RASH 08/26 completed Not Available Not Available Not Available ketorolac 10 mg tablet 07/28 completed Not Available Not Available Not Available benzonatate 100 mg capsule TAKE 1 CAPSULE BY MOUTH TWICE DAILY FOR 5 DAYS NEEDED FOR COUGH 11/02 completed Not Available Not Available Not Available oseltamivir 75 mg capsule TAKE 1 CAPSULE BY MOUTH TWICE DAILY FOR 5 DAYS FOR UPPER RESPIRATO RY INFECTION 10/19 completed Not Available Not Available Not Available ferrous sulfate 325 mg (65 mg iron) tablet Take 1 tablet every other day by oral route. 2024 active Not Available Not Available Not Avai lable diclofenac sodium 75 mg tablet,vidhya yed release 07/28 completed Not Available Not Available Not Available bisacodyl 5 mg tablet,vidhya yed release 09/01 completed Not Available Not Available Not Available loratadine 10 mg tablet Take 1 tablet every day by oral route. 10/19 completed Not Available Not Available Not Available amoxicillin 875 mg-potassiu m clavulanate 125 mg tablet TAKE 1 TABLET BY MOUTH TWICE DAILY 07/26 completed Not Available Not Available Not Available Vitamin D3 06/15 completed Not Available Not Available Not Available rivaroxaban 20 mg tablet Take 1 tablet every day by oral route. active Not Available Not Available No t Available vitamin E mixed 200 unit tablet Take 1 tablet every day by oral route. 2024 active Not Available Not Available Not Avai lable Vitals Date Recorded Body height Heart rate Body temperature Body mass index (BMI) Body weight Oxygen saturation Oxygen saturation in Arterial blood by Pulse oximetry Systolic blood pressure Diastolic blood pressure Provider Name and Address Organization Details Last Updated DateTime 5 177.8 cm 82 /min 98.1 [degF] 40.3 kg/m2 782411. 46 g 98 % 98 % 167 mm[Hg] 90 mm[Hg] Nakia Rico CMA [employer] 5 16:20:24 Date Recorded Body height Body mass index (BMI) Body weight Body temperature Heart rate Oxygen saturation Oxygen saturation in Arterial blood by Pulse oximetry Systolic blood pressure Diastolic blood pressure Provider Name and Address Organization Details Last Updated DateTime 5 177.8 cm 40.3 kg/m2 304525. 46 g 97.6 [degF] 85 /min 97 % 97 % 144 mm[Hg] 75 mm[Hg] Maryann Moser [employer] 5 14:12:01 Date Recorded Body height Body mass index (BMI) Body weight Body temperature Heart rate Oxygen saturation Oxygen saturation in Arterial blood by Pulse oximetry Pain severity - 0-10 verbal numeric rating [Score] - Reported Systolic blood pressure Diastolic blood pressure Provider Name and Address Organization Details Last Updated DateTime 5 177.8 cm 40.2 kg/m2 849977. 86 g 98.4 [degF] 70 /min 95 % 95 % 0 144 mm[Hg] 70 mm[Hg] Yaa Scott MA [facility] 5 10:41:11 Date Recorded Body height Body mass index (BMI) Body weight Body temperature Oxygen saturation Oxygen saturation in Arterial blood by Pulse oximetry Systolic blood pressure Diastolic blood pressure Provider Name and Address Organization Details Last Updated DateTime 5 177.8 cm 40.2 kg/m2 925607. 86 g 98.4 [degF] 95 % 95 % 144 mm[Hg] 70 mm[Hg] Razia Bae MA [facility] 5 10:09:16 Date Recorded Heart rate Heart rate Respiratory rate Provider Name and Address Organization Details Last Updated DateTime 11/13/2024 71 /min 71 /min 15 /min Andres Foreman MD [address] [place] [address], [id number], [facility] 11/13/2024 10:50:59 Date Recorded Body height Body mass index (BMI) Body weight Heart rate Respiratory rate Oxygen saturation Oxygen saturation in Arterial blood by Pulse oximetry Systolic blood pressure Diastolic blood pressure Provider Name and Address Organization Details Last Updated DateTime 5 177.8 cm 40.2 kg/m2 774432. 86 g 72 /min 14 /min 98 % 98 % 127 mm[Hg] 75 mm[Hg] Vania Wylie [facility] 5 11:40:47 Social History Question Answer Notes LastModified by Organization Details LastModified Time Tobacco Smoking Status Never Smoker CESAR Cisneros, [facility] 07/28/2023 10:00:00 Do You Have An Advance Directive? No Information not available 07/28/2023 What Is Your Level Of Alcohol Consumption? Occasional Rare Information not available 07/28/2023 Are You Blind Or Do You Have Difficulty Seeing? No Information not available 07/28/2023 What Is Your Level Of Caffeine Consumption? None Information not available 07/28/2023 In The 14 Days Before Symptom Onset, Have You Had Close Contact With A Laboratory-confi rmed COVID-19 While That Case Was Ill? No Information not available 07/28/2023 In The 14 Days Before Symptom Onset, Have You Had Close Contact With A Person Who Is Under Investigation For COVID-19 While That Person Was Ill? No Information not available 07/28/2023 Are You Currently Employed? No Retired Information not available 07/28/2023 Are You Deaf Or Do You Have Serious Difficulty Hearing? Yes Information not available 07/28/2023 What Type Of Diet Are You Following? REGULAR Information not available 07/28/2023 What Is The Highest Grade Or Level Of School You Have Completed Or The Highest Degree You Have Received? [id number] Information not available 07/28/2023 Do You Have An Electrostatic Air Filter? No Information not available 09/20/2023 What Is The Fluoride Status Of Your Home? Unknown Information not available 07/28/2023 Are There Any Guns Present In Your Home? No Information not available 07/28/2023 Do You Have A Humidifier? No Information not available 09/20/2023 Where Do You Live? SingleLevelHouse Information not available 07/28/2023 Do You Have A Medical Power Of Television Servicer? No Information not available 07/28/2023 Do You Have Moisture Problems In Your Home? No Information not available 09/20/2023 What Was The Date Of Your Most Recent Tobacco Screening? 11/13/2024 Information not available 11/13/2024 Have You Ever Been Counseled For Unhealthy Alcohol Use? No Information not available 07/28/2023 Do You Have Any Pets? Yes 5 Cats 2 Dogs [email or web address] Information not available 02/21/2024 What Is Your Relationship Status? Information not available 07/28/2023 Do You Use Your Seat Belt Or Car Seat Routinely? Yes Information not available 07/28/2023 Do You Have Smoke And Carbon Monoxide Detectors In Your Home? Yes Information not available 07/28/2023 Are You Passively Exposed To Smoke? No Information not available 07/28/2023 Are There Any Smokers In Your House? No Information not available 07/28/2023 Do You Feel Stressed (tense, Restless, Nervous, Or Anxious, Or Unable To Sleep At Night)? [id number] Information not available 07/28/2023 Do You Use Any Illicit Or Recreational Drugs? No Information not available 07/28/2023 Do You Use Sunscreen Routinely? No [email or web address] Information not available 12/21/2023 Has Tobacco Cessation Counseling Been Provided? No N/a Information not available 07/28/2023 Have You Recently Traveled Abroad? No Information not available 07/28/2023 Do You Or Have You Ever Used Any Other Forms Of Tobacco Or Nicotine? No Information not available 07/28/2023 Sex: Male Functional Status Question Answer Note LastModified by Organizat ion Details LastModified Time Do you have difficulty walking or climbing stairs? Yes Information not available 07/28/2023 Do you have transportation difficulties? No Information not available 07/28/2023 Are you able to walk? YESWOREST Information not available 07/28/2023 Do you have difficulty doing errands alone? No Information not available 07/28/2023 Are you able to care for yourself? Yes Information not available 07/28/2023 Do you have difficulty dressing or bathing? No Information not available 07/28/2023 What is your exercise level? None Information not available 07/28/2023 Mental Status Question Answer Note LastModified by Organization D etails LastModified Time Do you have difficulty concentrating, remembering or making decisions? Yes Information no t available 07/28/2023 Family History Relationship Description Onset Age of this Age Resolved Age Notes LastModified by Organization Details LastModified Time Mother General health good deceas ed Not available 07/28/2023 09:58:38 Father Diabetes mellitus Not available 2022 09:58:55 Medical History Condition Response BLINDNESS N NERVE DISEASE N RHEUMATIC FEVER N BLADDER PROBLEMS N KIDNEY STONES N MRSA N OTHER # 1 N POLIO N LUNG DISEASE/DISORDER N HISTORY OF DRUG ABUSE N RADIATION / CHEMOTHERAPY N COPD N Other # 2 N BLOOD DISEASES N EAR OR HEARING PROBLEMS N MUMPS N SHINGLES N DEPRESSION (INCLUDING POST ) N BOWEL PROBLEMS N FAILED BACK SYNDROME N STROKE/TIA N ULCERS N BENIGN PROSTATIC HYPERPLASIA N MEASLES N HYPOTENSION N MYOCARDIAL INFARCTION N OBESITY N GERD/NAUSEA N ANEURYSM N URINARY/BLADDER/KIDNEY PROBLEMS N CORONARY ARTERY DISEASE (CAD) N Do you have Advance directive? N ADDICTION CONCERNS N Impotence N ENDOMETRIOSIS N USE OF BLOOD THINNERS Y SKIN PROBLEMS N GASTROINTESTINAL DISORDER N PERIPHERAL VASCULAR DISEASE N MUSCLE,JOINT OR BONE PROBLEMS N GASTROINTESTINAL BLEEDING N BLOOD CLOTS Y ASTHMA N CATARACTS N Abdominal Pain N ERECTILE DYSFUNCTION N ARTERIAL INSUFFICIENCY N VARICOSITIES N GI PROBLEMS N Low Testosterone N INFERTILITY N AIDS/HIV N CHEMOTHERAPY / RADIATION N LIVER DISEASE N MALE HYPOGONADISM N HYPERTENSION N Deficiency N TOURETTE'S N ANXIETY DISORDER N BLOOD TRANSFUSION N ANEMIA/BLOOD DISORDER N CHRONIC EAR INFECTIONS N TUBERCULOSIS N GLAUCOMA N FOOT PROBLEM N DIVERTICULITIS N SLEEP APNEA Y CHICKENPOX N ALLERGIES/HAYFEVER Y BACK INJECTIONS N INFECTIOUS DISEASE N PROSTATE N HEART ARRHYTHMIA N ESRD N INSOMNIA N HIGH CHOLESTEROL / HYPERLIPIDEMIA Y EYE PROBLEMS N HYPERTHYROIDISM N PVD N EDEMA N CHRONIC PAIN SYNDROME N HYPOTHYROIDISM N CAROTID BLOCKAGE N CONSTIPATION N BACK / NECK PROBLEMS N ATHEROSCLEROSIS N BREAST PROBLEMS N DIALYSIS N POLYCYSTIC OVARIES N ECZEMA N OSTEOPOROSIS N ARTHRITIS N APPENDICITIS N DIABETES, TYPE N BAD TEETH N VON WILLIBRAND'S DISEASE N ENT N HEARTBURN / REFLUX N GI N AUTISM SPECTRUM DISORDER (ASD) N POST LAMINECTOMY SYNDROME N HEPATITIS / LIVER DISEASE N GOUT N SLEEP DISORDER N ALZHEIMER'S DISEASE N Brain Problems N DEMENTIA N HERPES N SEIZURES/EPILEPSY N HEADACHES/MIGRAINES N VASCULAR DISEASE N PACEMAKER N DIZZINESS N HEART DISEASE/HEART PROBLEMS N KIDNEY DISEASE N MULTIPLE SCLEROSIS N NEUROPSYCHOLOGICAL N CANCER: SPECIFY N CARDIAC ARRHYTHMIA N ATRIAL FIBRILLATION N Gall Stones N PULMONARY EMBOLISM N AUTOIMMUNE DISEASE N Immunizations Vaccine Type Date Status Note Provider Nam e and Address Organization Details Recorded Time Pneumococcal conjugate PCV20, polysaccharide KEE071 conjugate, adjuvant, PF 3 completed Yarelis Martinez MD [address] [place] [address], [place] [address], [place], [address], [facility] 07/28/2023 17:42:18 Past Encounters Encounter ID Performer Location Encounter Start Date Encounter Closed Date Diagnosis/Indication Diagnosis SNOMED-CT Code Diagnosis ICD10 Code Diagnosis Note [id number] Yarelis bryan MD [facility] Internal Med [address] [address] 07/28/2023 09:45:09 07/28/2023 10:40:40 Screening - NAD 289465039 Z13.9 C-scope: Get this Get yearly flu shotGet Tdap if not doneAgreea ble to do PCV #20 07/28/2023 Get shingrix vaccineCan do COVID 19 vaccine and also RSV RTC in 4 months, do labs, ER if worse Screening for malignant neoplasm of colon 016944242 Z12.11 Hyperlipidemia 56575644 E78.5 Not on any medsGet labs Obstructiv e sleep apnea syndrome 83725033 G47.33 Sleep study 02/22/[address] Tre Ramirez get a referral to Dr Foreman Screening for malignant neoplasm of prostate 923218396 Z12.5 Vitamin D deficiency 347 65463 E55.9 Serum suzie min B12 below reference range 497305323 R79.89 Peripheral vascular disease 857634793 I73.9 Needs a referral to cardiology , will see Dr Plummer today 07/28/2023 at 2.00pm Deep venou s thrombosis of lower extremity 070378388 I82.409 L leg DVT as per his historyDoe s have venous stasis skin changes and also pitting edema but dave LETreated in the ER for L LE cellulitis On xareltoNee ds to see cardiology Addendum: 07/28/2023 Dr Plummer [facility] 07/28/2023 Cataract 525443636 H26.9 L eye doneNeeds R eye Administra tion of pneumococcal vaccine 60418681 Z23 [id number] Andres Foreman MD [facility] Pulmonolo gy [address] [place] [address] 09/01/2023 09:32:16 09/02/2023 08:18:32 Obstructive sleep apnea syndrome 82785771 G47.33 Periodic l imb movement disorder 615442615 G47.61 D50.8 E83.42 [id number] Andres Foreman MD [facility] Pul[facility]olo [facility] [place] [address] [place] [address] 09/20/2023 10:11:01 09/21/2023 09:02:48 Obstructive sleep apnea syndrome 47910233 G47.33 Iron deficiency 60329470 E61.1 Vitamin E deficiency 541 99942 E56.0 [id number] Yarelis bryan MD [facility] Internal Med [facility] [address] [place] [address] 10/18/2023 10:09:16 10/20/2023 10:08:49 Screening - NAD 058080858 Z13.9 C-scope: Get this Get yearly flu shotGet Tdap if not doneAgreea ble to do PCV #20 07/28/2023 Get shingrix vaccineCan do COVID 19 vaccine and also RSV RTC in 4 months, do labs, ER if worse Screening for malignant neoplasm of colon 883772698 Z12.11 Hyperlipidemia 63796691 E78.5 Not on any medsGet labs Obstructiv e sleep apnea syndrome 82118922 G47.33 Sleep study 02/22/[address] Tre Ramirez get a referral to Dr Foreman Vitamin D deficiency 347 88640 E55.9 Serum suzie min B12 below reference range 767559136 R79.89 Peripheral vascular disease 807452040 I73.9 Needs a referral to cardiology , will see Dr Plummer 09/16/2023 , f/u in 6 months Deep venou s thrombosis of lower extremity 429709412 I82.409 L leg DVT as per his historyDoe s have venous stasis skin changes and also pitting edema but dave LETreated in the ER for L LE cellulitis On xarelto Dr Plummer [facility] Cataract 360713784 H26.9 L eye doneNeeds R eye Liver enzy mes level above reference range 142748247 R74.8 US liver 09/05/2023 : Hepatic steatosisN eeds to see GI Prostate s pecific antigen above reference range 377172249 R97.20 High normal PSANeeds to see urology Hyperproteinemia 6035259 9 E88.09 Get UPEP/SPEP Ankle pain 555085668 M25 .579 Get a referral to podiatry [id number] Parker Abdi DPM [facility] Podiatry [place] [address] [place] [address] 11/24/2023 14:51:54 11/24/2023 16:06:14 Pain in left foot 6945551815 46684 M79.672 Edema of l ower extremity 876536559 R60.0 Left foot neuritis 05376 89570 05053 G57.82 Dry skin dermatitis 2600 23771 L85.3 [id number] Parker Abdi DPM [facility] Pod[facility] [place] [address] [place], [place] [id number] 1 12/05/2023 09:34:44 12/05/2023 11:09:15 Onychomycosis of toenails 939953036 B35.1 [id number] Andres Foreman MD [facility] Pulmonolo gy [address] [address] 12/21/2023 09:43:44 12/22/2023 09:46:44 Obstructive sleep apnea syndrome 48138830 G47.33 Iron deficiency 66009550 E61.1 Vitamin E deficiency 541 53505 E56.0 [id number] Yarelis bryan MD [facility] Internal Med [facility] [address] [place] [address] 02/21/2024 09:41:06 02/21/2024 10:25:01 Screening - NAD 979411450 Z13.9 C-scope: Get this Get yearly flu shotGet Tdap if not doneUTD on PCV #20 07/28/2023 Get shingrix vaccineCan do COVID 19 vaccine and also RSV RTC in 4 months, do labs, ER if worse Screening for malignant neoplasm of colon 703303776 Z12.11 Hyperlipidemia 91529002 E78.5 On atorvastat in 40mg dailyGet labs Obstructiv e sleep apnea syndrome 77374466 G47.33 Sleep study 02/22/[address] Tre carrasco t Dr Foreman 12/21/2023 , next 03/22/2024 Vitamin D deficiency 347 86195 E55.9 Serum suzie min B12 below reference range 194509557 R79.89 Peripheral vascular disease 791343863 I73.9 Dr Plummer 09/16/2023 , f/u in 6 months Deep venou s thrombosis of lower extremity 726961571 I82.409 L leg DVT as per his historyDoe s have venous stasis skin changes and also pitting edema but dave LETreated in the ER for L LE cellulitis On xarelto Dr Plummer [facility] Cataract 231935667 H26.9 L eye doneNeeds R eye Liver enzy mes level above reference range 272049783 R74.8 US liver 09/05/2023 : Hepatic steatosisN eeds to see GI Prostate s pecific antigen above reference range 313093146 R97.20 High normal PSANeeds to see urology Hyperproteinemia 1870031 9 E88.09 Get UPEP/SPEP Ankle pain 622582785 M25 .579 Dr Abdi 11/24/2023 , 12/05/2023 States that he is doing much better, and now is able to walk up and down stairs [id number] [facility] Pulmonolo [facility] [address] [facility] [address] [place] [address] 03/22/2024 09:52:59 03/23/2024 15:18:44 Obstructive sleep apnea syndrome 95625398 G47.33 Iron deficiency 09224260 E61.1 Vitamin E deficiency 541 42753 E56.0 [id number] Roman Escobar DPM [facility] [address] [place] [address] 04/25/2024 10:48:12 04/25/2024 12:36:31 Deep venous thrombosis of lower extremity 577811432 I82.409 repeat ultrasound due to lower extremity pain, history of DVTfollow- up results Peripheral venous insufficiency 31596526 I87.2 recommend chronic compressio n therapy Open wound of left lower leg 4027943053 4780826 S81.802A multiple lower legcontinu e compressio nkeep clean and dryfollow- up 1 week Open wound of right lower leg 8031372125 9016377 S81.801A as above [id number] Yarelis bryan MD [facility] Internal Med [facility] [address] [place] [address] 04/26/2024 17:15:33 04/26/2024 18:07:15 Peripheral vascular disease 905254627 I73.9 Dr Plummer 09/16/2023 , f/u in 6 monthsSe[facility] the [facility] referral to Dr Plummer Onychomycdaniel sis of toenails 532212024 B35.1 In grown toenails, dave big toesGet a referral to podiatry Hyperlipidemia 50371964 E78.5 On atorvastat in 40mg dailyGet labs Vitamin D deficiency 347 70854 E55.9 Serum suzie min B12 below reference range 701396536 R79.89 [id number] Roman Escobar DPM [facility] [address] [place] [address] 05/02/2024 11:15:40 05/02/2024 16:08:25 Deep venous thrombosis of lower extremity 248864957 I82.409 repeat ultrasound due to lower extremity pain, history of DVTfollow- up results Peripheral venous insufficiency 41836886 I87.2 recommend chronic compressio n therapyRec ommend follow-up with vascular for end of venous procedures if possible Open wound of left lower leg 9062515698 4961157 S81.802A multiple lower leg- gentian roseanna applied todayconti nue compressio nkeep clean and dryfollow- up 1 week Open wound of right lower leg 2741374672 9518569 S81.801A healed [id number] Yarelis bryan MD [facility] Internal Med [facility] [address] [place] [address] 06/14/2024 09:39:45 06/14/2024 10:11:04 Peripheral vascular disease 217489127 I73.9 Dr Grewal [facility] 05/04/2024 , f/[facility]m be on xarelto lifelong as per [facility] Onychomyco sis of toenails 826826024 B35.1 In grown toenails, dave big toesDr Shawn 05/02/2024 Hyperlipidemia 73605852 E78.5 On atorvastat in 40mg dailyGet labs Vitamin D deficiency 347 46090 E55.9 Serum suzie min B12 below reference range 327503837 R79.89 Screening - NAD 59358363 3 Z13.9 C-scope: Get this Get yearly flu shotGet Tdap if not doneUTD on PCV #20 07/28/2023 Get shingrix vaccineCan do COVID 19 vaccine and also RSV RTC in 4 months, do labs, ER if worse Screening for malignant neoplasm of colon 229736005 Z12.11 Obstructiv e sleep apnea syndrome 75442255 G47.33 Sleep study 02/22/[address] [place] neurologis Sandra Foreman Deep venou s thrombosis of lower extremity 805709278 I82.409 L leg DVT as per his historyDoe s have venous stasis skin changes and also pitting edema but dave LETreated in the ER for L LE cellulitis On xarelto Dr Plummer [facility] Cataract 258896190 H26.9 L eye doneNeeds R eye Liver enzy mes level above reference range 254554501 R74.8 US liver 09/05/2023 : Hepatic steatosisN eeds to see GI Prostate s pecific antigen above reference range 750031251 R97.20 High normal PSANeeds to see urology Ankle pain 134657794 M25 .579 Dr Abdi 11/24/2023 , 12/05/2023 States that he is doing much better, and now is able to walk up and down stairs Multiple o pen wounds of lower leg 940215463 S81.801A Sees Dr Cantor eds to see wound clinicStar t on augmentinE R if worse [id number] Andres Foreman MD [facility]olo [facility] [place] [address] [facility], [facility] [address] [place] [address] 06/20/2024 09:47:59 06/28/2024 11:37:07 Obstructive sleep apnea syndrome 86920512 G47.33 Iron deficiency 03825896 E61.1 Vitamin E deficiency 541 85883 E56.0 [id number] Roman Escobar DPM [facility] [address] [place] [address] 06/20/2024 14:12:50 06/20/2024 15:58:02 Abrasion of skin of right lower leg 4864874517 1579903 S80.811A gentian roseanna applied todayNew a wound care until healedIf not healed in 1 week return to office Peripheral venous insufficiency 34218810 I87.2 recommend chronic compressio n therapyRec ommend follow-up with vascular for end of venous procedures if possible Xerosis du e to atopic dermatitis 984030835 L85.3 left legfollow- up 3 weeks if not resolved referral to Dermatolog y [id number] Roman Escobar DPM [facility] Podiatry [place] [address] [facility], [facility] [address] [place] [address] 07/10/2024 11:54:59 07/10/2024 14:48:08 Dystrophia unguium 64390738 L60.3 nails debrided without incident Pain in toe 972164832 M7 9.674 M79.255 [id number] Shahbaz Hendrix MD [facility] [address] [place], [place] [address] [place] [address] 07/18/2024 11:18:53 07/18/2024 13:36:32 Prostate nodule 8265244743 26097 N40.2 [id number] Andres Foreman MD [facility] Pulmonolo gy [address] [place] [address] 09/13/2024 09:57:41 09/13/2024 13:34:36 Obstructive sleep apnea syndrome 77655001 G47.33 Iron deficiency 91115533 E61.1 Vitamin E deficiency 541 23936 E56.0 [id number] Roman Escobar DPM [facility] [place] [address] [facility], [facility] [address] [place] [address] 10/09/2024 11:17:46 10/22/2024 09:29:53 Dystrophia unguium 78965033 L60.3 nails debrided without incident Pain in toe 134332207 M7 9.674 M79.675 toes due to elongated nails [id number] Shahbaz Hendrix MD [facility] [address] [address] 10/19/2024 16:03:11 10/22/2024 09:39:27 [id number] Shahbaz Hendrix MD [facility] [address] [address] 11/02/2024 13:55:53 11/02/2024 14:26:25 Prostate nodule 5340395134 74539 N40.2 Prostate s pecific antigen above reference range 581085378 R97.20 Primary adenocarcinoma of prostate 5763864709 C61 [id number] Andres Foreman MD [facility] Pul[facility]olo [address] [address] 11/13/2024 09:55:52 11/13/2024 13:47:55 Obstructive sleep apnea syndrome 43171398 G47.33 Iron deficiency 76171646 E61.1 Vitamin E deficiency 541 63861 E56.0 [id number] Yarelis bryan MD [facility] Internal Med [facility] [address] [place] [address] 11/13/2024 09:58:01 11/13/2024 11:30:12 Peripheral vascular disease 684814033 I73.9 Dr Grewal [facility] 05/04/2024 , f/[facility] the [facility] Holm be on xarelto lifelong as per [facility] Onychomyco sis of toenails 441752940 B35.1 In grown toenails, dave big toesDr Shawn 05/02/2024 , last apt 10/09/2024 , next 01/08/2025 Hyperlipidemia 77270794 E78.5 On atorvastat in 40mg dailyGet labs Vitamin D deficiency 347 77720 E55.9 Serum suzie min B12 below reference range 837470545 R79.89 Screening - NAD 72550081 3 Z13.9 C-scope: Get this Get yearly flu shotGet Tdap if not doneUTD on PCV #20 07/28/2023 Get shingrix vaccineCan do COVID 19 vaccine and also RSV RTC in 4 months, do labs, ER if worse Screening for malignant neoplasm of colon 898540893 Z12.11 Obstructiv e sleep apnea syndrome 57656341 G47.33 Sleep study 02/22/[address] [place] neurologis tDr Foreman seen 11/13/2024 , next apt on 02/12/2025 Deep venou s thrombosis of lower extremity 866050263 I82.409 L leg DVT as per his historyDoe s have venous stasis skin changes and also pitting edema but dave LETreated in the ER for L LE cellulitis On xarelto Dr Plummer [facility], is to get ECHO on 12/14/2024 and a sleep monitor on 11/16/2024 and f/u Dr Plummer 02/01/2025 Cataract 383310735 H26.9 L eye doneNeeds R eye Liver enzy mes level above reference range 522906072 R74.8 US liver 09/05/2023 : Hepatic steatosisN eeds to see GI Ankle pain 762378580 M25 .579 Dr Abdi 11/24/2023 , 12/05/2023 States that he is doing much better, and now is able to walk up and down stairs Multiple o pen wounds of lower leg 149839772 S81.801A Sees Dr Cantor eds to see wound clinicStar t on augmentinE R if worse Malignant tumor of prostate 392036366 C61 Addendum: 11/06/2024 :Bx notedWill refer to Dr Vera [id number] Roman Escobar DPM [facility] [address] [place] [address] 01/08/2025 11:20:55 01/08/2025 16:09:10 Dystrophia unguium 28745490 L60.3 nails debrided without incident Unable to cut own toenails 311075746 Z74.1 secondary to obesity Health Concerns Section Related Observation LastModified by Organization Detai ls LastModified Time None Recorded Concern Status LastModified by Organization Details LastModified Time None Recorded Advance Directives Directive N: Payers Encounter Date Sequence Insurance Name Policy Number Policy Mosquera Covered Member ID Mosquera Member ID Guarantor Name 10/19/2024 1 [facility] [facility] (MEDICARE REPLACEMENT/A DVANTAGE - HMO) [id number] Kendall Monroe [id number] Kendall Monroe 11/02/2024 1 [facility] (MEDICARE REPLACEMENT/A DVANTAGE - HMO) [id number] Kendall Monroe [id number] Kendall Monroe 11/13/2024 1 [facility] [facility] (MEDICARE REPLACEMENT/A DVANTAGE - HMO) [id number] Kendall Monroe [id number] Kendall Monroe 11/13/2024 1 [facility] (MEDICARE REPLACEMENT/A DVANTAGE - HMO) [id number] Kendall Monroe [id number] Kendall Monroe 01/08/2025 1 [employer] (MEDICARE REPLACEMENT/A DVANTAGE - PPO) Kendall Monroe [id number] Kendall Monroe Notes Date Note Type Note Provider Name and Address Organization Details Recorded Time 11/02/2024 text/html this patient was found to have a prostate nodule and underwent ultrasound with biopsies and on the right side he had 3/8 cores that were positive for Syl score 4+4=8. He has several comorbidities. Shahbaz Hendrix MD [address] [place] [address], [id number], [facility] [employer] 11/02/2024 14:45:12 11/13/2024 text/html OV 07/28/2023:He re to establish care Past PCP: [facility] Hx:[id number]? Cellulitis in L LE Reviewed social family and surgical history Here to discuss above and get labs, recently diagnosed with L LE DVT and is now on xarelto, also was on antibiotic for cellulitis, is doing very well today OV 10/18/2023: Here for his f/u apt, he feels well today, still has dave ankle pain and some swelling OV 02/21/2024: Here for his routine apt, he is doing well, he has seen podiatry and also Dr Foreman, feels that his feet and lower legs are much better, he is now able to walk up and down stairs OV 04/26/2024: Here s/p ER at [facility] for LE swelling and edema, today is doing better, no new labs except done by the ER, now sees wound clinic and they did give him an order to do US of his legs, he also has noted ingrown toe nails OV 06/14/2024: ACV: Here as he does have concerns for cellulitis in the legs, he feels that there are more 'pustules' in the R>L leg, no fevers or chills, no leg swelling, no pain, as per his , he missed his apt to wound clinic as they did not have transportation OV 11/13/2024: Here for his f/u apt, he is doing well today Yarelis Martinez MD [address] [place] [address], [id number], [facility] [employer] 11/13/2024 11:25:52 11/13/2024 text/html Primary care/Ref erring provider: Yarelis Martinez MD CC: The last time I got CPAP supplies was before the last visit in 08/2024. My mask is broken and I could not use my CPAP since 09/26/24. ResMed large AirFit F20 full face mask is what I need. The medium is too small. During the diagnostic sleep study on 03/17/16, AHI = 37.During the [facility] titration sleep study on 10/11/21, sleep onset = 5.5 minutes, REM onset = 53.5 minutes, ResMed medium AirFit F30i full face mask @ 12 cmH2O was applied, PLMI = 26. During the [facility] titration sleep study on 02/22/23, sleep onset 4.5 minutes, REM onset = 48 minutes, ResMed medium AirFit F20 full face mask @ 13-15 cmH2O was applied, PLMI = 16. At home since 09/13/24, the patient uses a ResMed AirSense 10 autoset unit with heated humidification. The patient does not need the ramp to start low and go up slowly on the pressure anymore. There is no xerostomia in a.m. There is no hose/mask condensation with water.The patient wears a ResMed large AirFit F20 full face mask without chin strap. There is no claustrophobia, no nostril/nose bridge irritation, no facial rash, no facial numbness, no nosebleeding. The patient feels more refreshed upon waking and daytime alertness is improved. Energy levels are sustained until noon. At home, the patient sleeps from 1 am to 7 am and wakes up with an alarm. Snoring: moderate, since 1970s.Snorting: noChoking: noCoughing: noGasping: noGagging: noSighing: noWitnessed apnea: yesTwitching or jerking of leg(s), arm(s), body, head: yesTeeth grinding: noTeeth clenching: noSleeptalking: noSleepwalking: noSleep crying: noBedwetting: noTongue/lip/gum/cheek biting: noSleeping with open mouth: yesSleep paralysis: noHypnagogic hallucinations: noHypnopompic hallucinations: noVivid dreams: noDifficulty with sleep onset: noDifficulty with sleep maintenance: yesSleep interruptions: for no known reasonsPatient wakes up with: fatigueDaytime cataplexy: noMorning hypersomnolence: yesAfternoon hypersomnolence: yesCaffeine sources in diet: chocolate 1 candy bar per week Associated medical and psychiatric conditions:Congestive heart failure: noCoronary artery disease: noMyocardial infarction: noHypertension: noStroke: noBronchial asthma: noChronic obstructive pulmonary disease: noDepression: noBipolar disorder: noAnxiety: noPanic disorder: noPosttraumatic stress disorder: noAttention deficit and hyperactivity disorder: noObsessive Compulsive disorder: noSchizophrenia: noSchizoaffective disorder: noPersonality disorder: noChronic analgesic use: noChronic sedative/hypnotic use: no EPWORTH SLEEPINESS SCALE (ESS) CHANCE OF DOZING SCORE0 = would never doze1 = slight chance of dozing2 = moderate chance of dozing3 = high chance of dozing SITUATION AND CHANCE OF DOZINGSitting and reading - 3Watching television - 3Sitting inactive in a public place (e.g. a theater or meeting) - 2As a passenger in a car for an hour without a break - 1Lying down to rest in the afternoon when circumstances permit - 2Sitting and talking to someone - 3Sitting quietly after lunch without alcohol - 3In a car, while stopped for a few minutes in the traffic - 0TOTAL SCORE 17Subjectively, patient has a high chance of dozing. Andres Foreman MD [address], [place] [address], [place], [address], [employer] [facility] [employer] 11/15/2024 14:53:08 01/08/2025 text/html . Patient is a 64-year-old male who returns the office for routine foot care. Patient denies any other complaints. Roman Escobar DPM [address], [facility] [address], [place], [address], [employer] 01/08/2025 14:41:48
--- OUTSIDE RECORDS SUMMARY | 2025-01-10 12:36 | XMS_ITS | CONTINUITY OF CARE DOCUMENT ---
Author Name velasquez eng Address Unknown Organization [facility] Address [address] [place] [address] [address] [place] [address] Phone [phone] Care Team Providers Care Medical Staff Manager Name Role Phone Elian WARD, Nash Lawler Unavailable TRUE ESCAMILLA MD Unavailable [phone] TRUE ESCAMILLA MD Unavailable [phone] PROBLEMS Condition Status Date Provider Notes Cardiology examination active Nash regan MD DVT active Nash Plummer MD HTN essential active Nash Plummer MD Sleep apnea active Nash Plummer MD Abnormal electrocardiogram active Nash Plummer MD Ectopic Arrhythmia active Nash Plummer MD Prediabetes active Brittnee Thakkar NP ENCOUNTERS Date Type Provider Location Encounter Diag nosis - In-person encounter Office Visit Nash Plummer MD [place] [facility] - In-person encounter Office Visit Mmia Grewal MD [place] [facility] - In-person encounter Office Visit Nash Plummer MD [place] [facility] - In-person encounter Office Visit Nash Plummer MD [place] [facility] Prediabetes - In-person encounter Office Visit Nash Plummer MD [place] [facility] Cardiology examinationDVTHTN essentialSleep apneaAbnormal electrocardiogramEctopic Arrhythmia VITAL SIGNS Date Observation Value Provider Body Mass Index (Ratio) 40.03 kg/m2 Lebron nichols Sunil blood pressure, diastolic 88 mm[Hg] Tania cleveland [facility] blood pressure, systolic 150 mm[Hg] [facility] oxygen saturation, oximetry 94 % [facility] respiratory rate E&M 12 /min [facility] pulse rate 58 /min [facility] weight E&M 279 [lb_av] [facility] blood pressure, cuff size regular cristofer [facility] height E&M 70 [in_i] [facility] Body Mass Index (Ratio) 40.46 kg/m2 Vinicio Grewal MD blood pressure, cuff size regular Ta bitha Aguirre blood pressure, diastolic 78 mm[Hg] Ta bitha Aguirre blood pressure, systolic 126 mm[Hg] Tab itha Aguirre oxygen saturation, oximetry 98 % Latisha Aguirre pulse rate 73 /min Latisha Aguirre respiratory rate E&M 12 /min Latisha Aguirre weight E&M 282 [lb_av] Latisha Aguirre height E&M 70 [in_i] Latisha Aguirre Body Mass Index (Ratio) 39.74 kg/m2 Iraj dasilva [place] blood pressure, diastolic -1 mm[Hg] Li [employer] blood pressure, systolic 151 mm[Hg] Tanya [employer] blood pressure, cuff size regular Ta bitha Aguirre blood pressure, diastolic 88 mm[Hg] Ta bitha Aguirre blood pressure, systolic 151 mm[Hg] Tab itha Aguirre weight E&M 277 [lb_av] Latisha Aguirre pulse rate 68 /min Latisha Aguirre oxygen saturation, oximetry 95 % Latisha Aguirre respiratory rate E&M 12 /min Latisha Aguirre height E&M 70 [in_i] Latisha Aguirre Body Mass Index (Ratio) 38.74 kg/m2 Matthias Plummer MD blood pressure, diastolic 86 mm[Hg] Li [employer] blood pressure, systolic 136 mm[Hg] Tanya [employer] blood pressure, cuff size regular Ja rret blood pressure, diastolic 86 mm[Hg] Ja rret blood pressure, systolic 136 mm[Hg] Jar ret pulse rate 57 /min Barney y oxygen saturation, oximetry 98 % Barney respiratory rate E&M 12 /min Barney weight E&M 270 [lb_av] Barney y height E&M 70 [in_i] Barney y Body Mass Index (Ratio) 38.31 kg/m2 Matthias Plummer MD blood pressure, cuff size large Ke rri Andresuenelucitaer blood pressure, diastolic 80 mm[Hg] Ke rri Gruenenfeldjeremias blood pressure, systolic 120 mm[Hg] Lester Escalona oxygen saturation, oximetry 98 % Bonnie Escalona respiratory rate E&M 12 /min Bonnie ewing pulse rate 65 /min Bonnie dialloer weight E&M 267 [lb_av] Bonine dialloer height E&M 70 [in_i] Bonnie Paulson lder ALLERGIES No Known Drug Allergies HISTORY OF MEDICATION USE Medication Status Instructions Dates Provider Indications Com ments Lovenox 150 mg/mL syringe active Inject 1 ml subcutaneously twice a day Brittany Rodas RN FeroSul 325 mg (65 mg iron) tablet active TAKE 1 TABLET BY MOUTH EVERY DAY Brittnee Thakkar NP atorvastatin 40 mg tablet active Take 1 tablet by mouth at bedtime Brittnee Thakkar NP Xarelto 20 mg tablet active Take 1 tablet by mouth every evening Brittnee Thakkar NP Xarelto 20 mg tablet completed - Bonnie Escalona sulfamethoxazole- trimethoprim 800-160 mg tablet completed - Brittnee Thakkar NP loratadine 10 mg tablet active Take 1 tablet by mouth once daily Brittnee Thakkar NP cholecalciferol (vitamin D3) 50 mcg (2,000 unit) tablet active Take 2 tablet by mouth once a day Bonnie Escalona SOCIAL HISTORY Date Observation Value Provider personal history of marijuana use no Nash Plummer MD drug use no Nash bryan MD alcohol use yes Nash bryan MD smoking status Former smoker Nash carroll MD personal history of marijuana use no Caden Barber drug use no Caden simon alcohol use yes Caden simon smoking status Former smoker Caden marino personal history of marijuana use no Brittnee Joyreri MORRO drug use no Verah Bonareri BSA/AML COMPLIANCE OFFICER alcohol use yes Verah Bonareri BSA/AML COMPLIANCE OFFICER smoking status Former smoker Verah Bonare ri BSA/AML COMPLIANCE OFFICER personal history of marijuana use no Verah Bonareri BSA/AML COMPLIANCE OFFICER drug use no Verah Bonareri BSA/AML COMPLIANCE OFFICER alcohol use yes Verah Bonareri BSA/AML COMPLIANCE OFFICER smoking status Former smoker Verjoanne Bonare ri BSA/AML COMPLIANCE OFFICER social history reviewed E&M revi ewed - no changes required Nash Plummer MD INSURANCE PROVIDERS Payer name Policy type / Coverage type Patric red democrat ID AARP MEDIC[facility] AD[facility] [facility] [id number] ADVANCE DIRECTIVES Name Date DISCUSSED - NO DECISION MADE TREATMENT PLAN Date Name Performer [id number],S,24 hr tele Sa dwayne Plummer MD [id number],C,c urrently on Xaralto needs to remain on it indefinitely for lifetime since he's had 2 separate episodes of venous thrombosis. I am concerned about taking him off of Xaralto for colonoscopy procedure as a result it may be worthwhile for him to be on Lovenox for the short duration of time that he will be off Xaralto. He will probably be off for 5 days. Which means he will be close to 120 mg dosage of Lovenox BID for anticoagulation while he is off Xaralto. check venous and artierial studies Nash Plummer MD [id number],S,C heck BP at home before starting meds D iscussion of benefits for remote patient monitoring took place. Patient gives consent for remote monitoring of physiologic parameters including, but not limited to, weight, blood pressure, pulse oximetry, respiratory flow rate. BP today: 120/80 Nash Plummer MD [id number],S,S hows inferior SC age undetermined. check stress test with Lexiscan. will also obtain 24 hr telemonitor because he seems to have extra heart beats on exam. Nash Plummer MD [id number],S,Needs cardiac AGRAWAL with abnormal EKG Nash Plummer MD Cardiology Nash Plummer MD Cardiology:On Xarelto no bleedin g. Nash Plummer MD Cardiology:Needs a n ew mask for a CPAP. This visit has been a part of the consistent, comprehensive, and ongoing management of the chronic medical condition(s) listed above for the patient. T his visit has been a part of the consistent, comprehensive, and ongoing management of the chronic medical condition(s) listed above for the patient. Nash Plummer MD Cardiology:Discussio n of benefits for remote patient monitoring took place. Patient gives consent for remote monitoring of physiologic parameters including, but not limited to, weight, blood pressure, pulse oximetry, respiratory flow rate. BP today: 150/88 P rior BP: 126/78 (05/04/2024) Nash Plummer MD Cardiology Mima Grewal MD Cardiology Mima Grewal MD Cardiology: O rders: 9 9214 MOD 30-39min ([id number]) C omplex e/m visit add on ([id number]) T his visit has been a part of the consistent, comprehensive, and ongoing management of the chronic medical condition(s) listed above for the patient. Mima Grewal MD Cardiology: Nuclear Stress 08/16/2023 CONCLUSIONS: 1 . Normal sinus rhythm. Nonspecific ST-T abnormality. Old anterior wall myocardial infarction. 2 . The stress ECG was indeterminate for ischemia due to resting ECG abnormalities. 3 . No arrhythmias seen during stress portion of the exam. 4 . Normal left ventricle size. 5 . Left Ventricular Ejection Fraction is 58 % TID: 0.97. 6. Normal myocardial perfusion imaging with no evidence of ischemia or scar. Brittnee Thakkar NP Cardiology:FINDINGS: R ight Lower Extremity: Triphasic waveforms are seen in the common femoral, profunda femoris, proximal femoral, mid femoral, d istal femoral, popliteal, anterior tibial and posterior tibial. L eft Lower Extremity: Triphasic waveforms are seen in the common femoral, profunda femoris, proximal femoral, mid femoral, d istal femoral, popliteal, anterior tibial and posterior tibial. - C ONCLUSIONS: 1 . Normal arterial flow of the lower extremities bilaterally. E lectronically signed by Nash Plummer MD on 08/23/2023 at 12:42 PM Brittnee Thakkar NP Cardiology:NO NEW PA LPITATIONS Holter monitor 08/05-08/06/2023 S inus Rhythm with occasional Ventricular ectopics and rare Supraventricular e ctopics. The average heart rate was 66bpm with a maximum rate of 97bpm and a m inimum rate of 48bpm. VE?s were documented as a couplet and isolated beats w ith a burden of 1.67%. SVE?s were documented as isolated beats Brittnee Thakkar NP Cardiology: T he patient is using CPAP on a regular basis. The patient has been benefiting from therapy and should continue use. Brittnee Thakkar NP Cardiology: E cho 08/16/2023 CONCLUSIONS: 1 . Technically difficult study, secondary to poor acoustic windows. There is poor endocardial visualization. Interpretation is b ased on available limited views. Normal left ventricular systolic function. Mild enlargement of left ventricular chamber. Mild c oncentric left ventricular hypertrophy. There is E to A wave reversal consistent with impaired LV relaxation. Left ventricular e jection fraction is measured at 65 %. 2 . Normal right ventricular size. Normal right ventricular systolic function. 3 . No significant valvular abnormalities. BP today: 151/88 P rior BP: 136/86 (09/16/2023) Brittnee Thakkar NP Cardiology:This visi t has been a part of the consistent, comprehensive, and ongoing management of the chronic medical condition(s) listed above for the patient. last ov c urrently on Xaralto needs to remain on it indefinitely for lifetime since he's had 2 separate episodes of venous thrombosis. I am concerned about taking him off of Xaralto for colonoscopy procedure as a result it may be worthwhile for him to be on Lovenox for the short duration of time that he will be off Xaralto. He will probably be off for 5 days. Which means he will be close to 120 mg dosage of Lovenox BID for anticoagulation while he is off Xaralto. check venous and artierial studies. September 16, 2023 O n Xarelto. No bleeding issues/concerns. A BI 08/16/23 CONCLUSIONS: 1 . Normal arterial flow of the lower extremities bilaterally Venous duplex 08/16/23 CONCLUSIONS: 1 . No evidence of a deep vein thrombosis of the left lower extremity with the exclusion of the left popliteal artery. 2 . The presence of a partial thrombosis of the left popliteal artery cannot be ruled out due to technical limitations and poor v isability. March 16, 2024 C ontinues on Xarelto with no bleeding concerns. Brittnee Azultravis HOOKER Cardiology: L ast A1c 6.0 (07/2023) Brittnee Azultravis HOOKER Cardiology: Nuclear Stress 08/16/2023 CONCLUSIONS: 1 . Normal sinus rhythm. Nonspecific ST-T abnormality. Old anterior wall myocardial infarction. 2 . The stress ECG was indeterminate for ischemia due to resting ECG abnormalities. 3 . No arrhythmias seen during stress portion of the exam. 4 . Normal left ventricle size. 5 . Left Ventricular Ejection Fraction is 58 % TID: 0.97. 6. Normal myocardial perfusion imaging with no evidence of ischemia or scar. Brittnee Azultravis HOOKER Cardiology: H olter monitor 08/05-08/06/2023 S inus Rhythm with occasional Ventricular ectopics and rare Supraventricular e ctopics. The average heart rate was 66bpm with a maximum rate of 97bpm and a m inimum rate of 48bpm. VE?s were documented as a couplet and isolated beats w ith a burden of 1.67%. SVE?s were documented as isolated beats Brittnee Azultravis HOOKER Cardiology: T he patient is using CPAP on a regular basis. The patient has been benefiting from therapy and should continue use. Brittnee Azultravis HOOKER Cardiology:last ov c urrently on Xaralto needs to remain on it indefinitely for lifetime since he's had 2 separate episodes of venous thrombosis. I am concerned about taking him off of Xaralto for colonoscopy procedure as a result it may be worthwhile for him to be on Lovenox for the short duration of time that he will be off Xaralto. He will probably be off for 5 days. Which means he will be close to 120 mg dosage of Lovenox BID for anticoagulation while he is off Xaralto. check venous and artierial studies. September 16, 2023 O n Xarelto. No bleeding issues/concerns. A BI 08/16/23 CONCLUSIONS: 1 . Normal arterial flow of the lower extremities bilaterally Venous duplex 08/16/23 CONCLUSIONS: 1 . No evidence of a deep vein thrombosis of the left lower extremity with the exclusion of the left popliteal artery. 2 . The presence of a partial thrombosis of the left popliteal artery cannot be ruled out due to technical limitations and poor v isability. Brittnee Joychin HOOKER Cardiology: B P today: 136/86 P rior BP: 120/80 (07/28/2023) Echo 08/16/2023 CONCLUSIONS: 1 . Technically difficult study, secondary to poor acoustic windows. There is poor endocardial visualization. Interpretation is b ased on available limited views. Normal left ventricular systolic function. Mild enlargement of left ventricular chamber. Mild c oncentric left ventricular hypertrophy. There is E to A wave reversal consistent with impaired LV relaxation. Left ventricular e jection fraction is measured at 65 %. 2 . Normal right ventricular size. Normal right ventricular systolic function. 3 . No significant valvular abnormalities. Joshjoanne Ariane HOOKER Cardiology:24 hr tele Nash Plummer MD Cardiology:currently on Xaralto needs to remain on it indefinitely for lifetime since he's had 2 separate episodes of venous thrombosis. I am concerned about taking him off of Xaralto for colonoscopy procedure as a result it may be worthwhile for him to be on Lovenox for the short duration of time that he will be off Xaralto. He will probably be off for 5 days. Which means he will be close to 120 mg dosage of Lovenox BID for anticoagulation while he is off Xaralto. check venous and artierial studies Nash Plummer MD Cardiology:Check BP at home before starting meds D iscussion of benefits for remote patient monitoring took place. Patient gives consent for remote monitoring of physiologic parameters including, but not limited to, weight, blood pressure, pulse oximetry, respiratory flow rate. BP today: 120/80 Nash Plummer MD Cardiology:Shows inf erior SC age undetermined. check stress test with Lexiscan. will also obtain 24 hr telemonitor because he seems to have extra heart beats on exam. Nash Plummer MD Cardiology:Needs cardiac AGRAWAL with abnormal EKG Nash Plummer MD Date Name RPM (remote patient monitoring) Sleep Study Home Complete Echo LIPID PANEL MAGNESIUM TSH, free T4, total T3 HEMOGLOBIN A1c LIPID PANEL COMPREHENSIVE METABO LIC PANEL, W/EGFR Venous Doppler Bilat eral LE Arterial Duplex Bi-L ower EX Holter Monitor 24 Hr Stress Regadenoson Complete Echo HISTORY OF PROCEDURES Procedure Date Procedure Name Provider Procedure Notes S tatus Complex e/m visit add on Nash Plummer MD completed Complex e/m visit add on Nash Plummer MD completed EKG Nash Plummer MD compl eted Complex e/m visit add on Nash Plummer MD completed EKG Nash Plummer MD compl eted EKG Nash Plummer MD compl eted
--- OUTSIDE RECORDS SUMMARY | 2025-01-10 12:36 | XMS_ITS | Continuity of Care Document ---
Author Organization [facility] Address [address] [place] [address] Phone Care Team Providers Care Loan Operations Manager Name Role Phone Quiles OD, Beny Unavailable Unavailable Advance Directives Directive Yes / No Effective Date File Name No Information Encounters Encounter Description Practice Location Reason(s) For Visit Diagnoses Date Provider Providers Copied on Encounter [facility], [address], [place], [place], [id number], [place] tel:[phone] [facility] [place] No Information 2-200 3 Quiles OD Beny. [address] [facility] [address] , [address], [place], [address], [place]. tel:[phone] Family History Family Member Type Diagnosis Age [...]
--- OUTSIDE RECORDS SUMMARY | 2025-01-10 12:36 | XMS_ITS | Referral Summary ---
Author Organization [facility] Medical Office Building B Address [address] [place] [address] Care Team Providers Care Ore Grader Name Role Phone Chito Cornejo MD Primary Care Provider + Encounters Date Type Department Care Team Description 10/23/2024 9:43 PM REAL ESTATE ADMINISTRATOR - 10/24/2024 1:59 AM REAL ESTATE ADMINISTRATOR Emergency [facility] Emergency Department [address] [place] [address] Joleen Camejo MD Rectal bleeding (Primary Dx) [...] on file Legal Sex Male 1:17 AM REAL ESTATE ADMINISTRATOR Gender Identity Not on file Sexual Orientation Not on file Last Filed Vital Signs Vital Sign Reading Time Taken Comments Blood Pressure 137/85 10/24/2024 1:00 AM REAL ESTATE ADMINISTRATOR Pulse 62 10/24/2024 1:50 AM REAL ESTATE ADMINISTRATOR Temperature 36.7 C (98 F) 10/23/2024 7:43 PM REAL ESTATE ADMINISTRATOR Respiratory Rate 18 10/23/2024 7:45 PM REAL ESTATE ADMINISTRATOR Oxygen Saturation 92% 10/24/2024 1:50 AM REAL ESTATE ADMINISTRATOR Inhaled Oxygen Concentration - - Weight 127.5 kg (281 lb) 10/23/2024 7:43 PM REAL ESTATE ADMINISTRATOR Height 177.8 cm (5' 10 ) 10/23/2024 7:43 PM REAL ESTATE ADMINISTRATOR Body Mass Index 40.32 10/23/2024 7:43 PM REAL ESTATE ADMINISTRATOR Plan of Treatment Not on file Procedures Procedure Name Priority Date/Time Associated Diagnosis Comments HEMOGLOBIN AND HEMATOCRIT STAT 10/24/2024 12:58 AM REAL ESTATE ADMINISTRATOR B ABO / RH CONFIRMATION TESTING STAT 10/24/2024 12:58 AM REAL ESTATE ADMINISTRATOR EGFR STAT 10/23/2024 9:59 PM REAL ESTATE ADMINISTRATOR DIFFERENTIAL AUTO STAT 10/23/2024 9:5 9 PM REAL ESTATE ADMINISTRATOR ANTIBODY SCREEN STAT 10/23/2024 9:59 PM REAL ESTATE ADMINISTRATOR ABO/RH STAT 10/23/2024 9:59 PM REAL ESTATE ADMINISTRATOR TYPE AND SCREEN STAT 10/23/2024 9:59 PM REAL ESTATE ADMINISTRATOR PROTIME-INR STAT 10/23/2024 9:59 PM REAL ESTATE ADMINISTRATOR COMPREHENSIVE METABOLIC PANEL STAT 10/23/2024 9:59 PM REAL ESTATE ADMINISTRATOR CBC WITH AUTO DIFFERENTIAL STAT 10/23/2024 9:59 PM REAL ESTATE ADMINISTRATOR SERUM HEPATITIS PANEL Routine 05/24/2015 6:53 AM CDT from Last 3 Months or Most Recently Relevant to Health Maintenance Results * ABO / Rh Confirmation Testing (10/24/2024 12:58 AM REAL ESTATE ADMINISTRATOR) Pathologist [facility] ABO/Rh Confirmation B Positive [facility] Blood 10/24/2024 12:5 8 AM REAL ESTATE ADMINISTRATOR 10/24/2024 1:02 AM REAL ESTATE ADMINISTRATOR us Mora BANKS LAB BLOOD ORDERABLES Blanca l Result [facility] ([place] [address] [place] [address] [place] [address] [facility] * Hemoglobin and hematocrit (10/24/2024 12:58 AM REAL ESTATE ADMINISTRATOR) [facility] Hgb 13.5 13.0 - 17.5 g/dL Hct 40.1 38.9 - 50.3 % [facility]) Blood 10/24/2024 12:5 8 AM REAL ESTATE ADMINISTRATOR 10/24/2024 1:02 AM REAL ESTATE ADMINISTRATOR us Joleen Camejo MD LAB BLOOD ORDERABLES Final Resul t [facility] [address] [place] [address] [place] [address] * eGFR (10/23/2024 9:59 PM REAL ESTATE ADMINISTRATOR) eGFR >90 >=60 mL/min/1. 73 m2 Comment: [...] last reviewed 2021. Blood 10/23/2024 9:59 PM REAL ESTATE ADMINISTRATOR 10/23/2024 10:01 PM REAL ESTATE ADMINISTRATOR us Mora BANKS LAB BLOOD ORDERABLES Blanca schultz Result [facility] ([place]) 1 [facility] Department [place] [address] * Differential, auto (10/23/2024 9:59 PM REAL ESTATE ADMINISTRATOR) Pathologist [facility] Neutrophil abs 5.2 1.5 - 6.5 K/cumm Imm gran abs 0.1 0.0 - 0.1 K/cumm [facility] ([place]) Lymphocyte abs 2.6 0.8 - 3.3 K/cumm [facility] ([place]) Monocyte abs 0.8 0.2 - 0.8 K/cumm [facility] ([place]) Eosinophil abs 0.3 0.0 - 0.5 K/cumm [facility] ([place]) Basophil abs 0.1 0.0 - 0.1 K/cumm [facility] ([place]) Neutrophil pct 57.6 % [facility] ([place]) Comment: Interpretive Data Percent cell count reference [...] revised on 2018. Basophil pct 0.7 % [facility] ([place]) Comment: Interpretive Data Percent cell count reference ranges are not reported, since discordance with absolute values may lead to misinterpretation of CBC data. Current Interpretive Data was last revised on 2018. Blood 10/23/2024 9:59 PM REAL ESTATE ADMINISTRATOR 10/23/2024 10:01 PM REAL ESTATE ADMINISTRATOR us Mora BANKS LAB BLOOD ORDERABLES Blanca l Result [facility] ([place]) 1 [facility] Department [place] [address] * CBC with auto differential (10/23/2024 9:59 PM REAL ESTATE ADMINISTRATOR) WBC 9.0 3.8 - 9.9 K/cumm Hgb 14.2 13.0 - 17.5 g/dL [facility] ([place]) Hct 42.9 38.9 - 50.3 % [facility] ([place]) Plt 207 150 - 400 K/cumm [facility] ([place]) MPV 9.5 9.1 - 12.3 fL [facility] RBC 5.20 4.30 - 5.80 M/cumm [facility] ([place]) MCV 82.5 81.3 - 96.4 fL [facility] MCH 27.3 27.1 - 33.3 pg [facility] MCHC 33.1 32.3 - 35.7 g/dL [facility] ([place]) RDW CV 13.5 11.1 - 14.9 % [facility] ([place]) RDW SD 40.7 35.7 - 48.1 fL [facility] NRBC abs 0.00 0.00 - 0.01 K/cumm [facility] Blood 10/23/2024 9:59 PM REAL ESTATE ADMINISTRATOR 10/23/2024 10:01 PM REAL ESTATE ADMINISTRATOR Mora BANKS LAB BLOOD ORDERABLES Blanca l Result [facility] ([place]) 1 [facility] [place] [address] * ABO/Rh (10/23/2024 9:59 PM REAL ESTATE ADMINISTRATOR) [facility] ABO/Rh B Positive Blood 10/23/2024 9:59 PM REAL ESTATE ADMINISTRATOR 10/23/2024 10:01 PM REAL ESTATE ADMINISTRATOR Narrative [facility] ([place]) - 10/23/2024 11:41 PM REAL ESTATE ADMINISTRATOR Has the patient had Daratumumab or Isatuximab in the past 6 months?->Unknown Mora BANKS LAB BLOOD BANK TEST ORDER BRET Final Result [facility] ([place]) 1 [facility] [employer] [place] [address] * (ABNORMAL) Protime-INR (10/23/2024 9:59 PM REAL ESTATE ADMINISTRATOR) PT 14.4(H) 9.7 - 13.0 sec [facility] ([place]) INR 1.33(H) 0.90 - 1.20 [facility] ([place]) Comment: Interpretive data Oral anticoagulant therapeutic ranges: Venous thromboembolism prophylaxis or treatment: 2.0-3.0 CARDIOLOGY Standard range: 2.0-3.0 High-intensity range: 2.5-3.5 Refer to indication-specific guidelines for appropriate target ranges for prosthetic heart valve replacement. Current interpretive data was last revised on 2019. Blood 10/23/2024 9:59 PM REAL ESTATE ADMINISTRATOR 10/23/2024 10:01 PM REAL ESTATE ADMINISTRATOR Mora BANKS LAB BLOOD ORDERABLES Blanca l Result Performing Organization Address City/[facility]/ZIP Co de Phone Number [facility] ([place]) 1 [facility] [place] [address] * Antibody screen (10/23/2024 9:59 PM REAL ESTATE ADMINISTRATOR) Pathologist [facility] [place], indirect, Gel Interpretation Negative ABSC Blood 10/23/2024 9:59 PM REAL ESTATE ADMINISTRATOR 10/23/2024 10:01 PM REAL ESTATE ADMINISTRATOR Narrative [facility] ([place] - 10/23/2024 11:41 PM REAL ESTATE ADMINISTRATOR Has the patient had Daratumumab or Isatuximab in the past 6 months?->Unknown Mora BANKS LAB BLOOD BANK TEST ORDER BRET Final Result [facility] ([place] [address] [facility] [place] [address] * (ABNORMAL) Comprehensive metabolic panel (10/23/2024 9:59 PM REAL ESTATE ADMINISTRATOR) [facility] Sodium 138 135 - 145 mmol/L Potassium, pl 3.7 3.3 - 4.9 mmol/L [facility] ([place]) Chloride 104 97 - 110 mmol/L [facility] ([place] CO2 23 22 - 32 mmol/L [facility] ([place]) Anion gap 11 2 - 15 [...] 2022. Calcium 9.2 8.5 - 10.3 mg/dL [facility] Bilirubin, total 1.4(H) 0.1 [...] [facility] ([place]) Blood 10/23/2024 9:59 PM REAL ESTATE ADMINISTRATOR 10/23/2024 10:01 PM REAL ESTATE ADMINISTRATOR us Mora BANKS LAB BLOOD ORDERABLES Blanca l Result [facility] ([place]) 1 [facility] Department [place] [address] * Serum Hepatitis panel (05/24/2015 6:53 AM [...] 05/26/2015 10:00 AM CDT Test performed at [facility] [address] [place] [address] Director: KARLEY ADORNO DO,MPH us Historical Provider LAB BLOOD ORDERABLES Blanca schultz Result HISTORICAL RESULTS from Last 3 Months or Most Recently Relevant to Health Maintenance Insurance O [facility] MEDICARE ADVANTAGE [facility] MEDICARE Address: [facility] [address] [place] [address] Care Teams Ore Grader Relationship Specialty Start Date End Date Chito Cornejo MD PCP - General 04/11/18
--- OUTSIDE RECORDS SUMMARY | 2025-01-10 12:36 | XMS_ITS | Clinical Summary ---
Author Organization [facility] Medical Office Building B Address [address] [place] [phone] Care Team Providers Care Automated Logistics Specialist Name Role Phone Chito Cornejo MD Primary [...] Department Care Team Description 10/23/2024 9:43 PM SERVICES PROGRAM MANAGER - 10/24/2024 1:59 AM SERVICES PROGRAM MANAGER Emergency [facility] Emergency Department 1 [place] [address] Joleen Camejo MD Rectal bleeding (Primary Dx) [...] on file Legal Sex Male 1:17 AM SERVICES PROGRAM MANAGER Gender Identity Not on file Sexual Orientation Not on file Obstetrics History Last Filed Vital Signs Vital Sign Reading Time Taken Comments Blood Pressure 137/85 10/24/2024 1:00 AM SERVICES PROGRAM MANAGER Pulse 62 10/24/2024 1:50 AM SERVICES PROGRAM MANAGER Temperature 36.7 C (98 F) 10/23/2024 7:43 PM SERVICES PROGRAM MANAGER Respiratory Rate 18 10/23/2024 7:45 PM SERVICES PROGRAM MANAGER Oxygen Saturation 92% 10/24/2024 1:50 AM SERVICES PROGRAM MANAGER Inhaled Oxygen Concentration - - Weight 127.5 kg (281 lb) 10/23/2024 7:43 PM SERVICES PROGRAM MANAGER Height 177.8 cm (5' 10 ) 10/23/2024 7:43 PM SERVICES PROGRAM MANAGER Body Mass Index 40.32 10/23/2024 7:43 PM SERVICES PROGRAM MANAGER Plan of Treatment Health Maintenance Due Date [...] HEMOGLOBIN AND HEMATOCRIT STAT 10/24/2024 12:58 AM SERVICES PROGRAM MANAGER B ABO / RH CONFIRMATION TESTING STAT 10/24/2024 12:58 AM SERVICES PROGRAM MANAGER EGFR STAT 10/23/2024 9:59 PM SERVICES PROGRAM MANAGER DIFFERENTIAL AUTO STAT 10/23/2024 9:5 9 PM SERVICES PROGRAM MANAGER ANTIBODY SCREEN STAT 10/23/2024 9:59 PM SERVICES PROGRAM MANAGER ABO/RH STAT 10/23/2024 9:59 PM SERVICES PROGRAM MANAGER TYPE AND SCREEN STAT 10/23/2024 9:59 PM SERVICES PROGRAM MANAGER PROTIME-INR STAT 10/23/2024 9:59 PM SERVICES PROGRAM MANAGER COMPREHENSIVE METABOLIC PANEL STAT 10/23/2024 9:59 PM SERVICES PROGRAM MANAGER CBC WITH AUTO DIFFERENTIAL STAT 10/23/2024 9:59 PM SERVICES PROGRAM MANAGER SERUM HEPATITIS PANEL Routine 05/24/2015 6:53 AM CDT from Last 3 Months or Most Recently Relevant to Health Maintenance Results * ABO / Rh Confirmation Testing (10/24/2024 12:58 AM SERVICES PROGRAM MANAGER) ABO/Rh Confirmation B Positive [facility] Blood 10/24/2024 12:5 8 AM SERVICES PROGRAM MANAGER 10/24/2024 1:02 AM SERVICES PROGRAM MANAGER Mora BANKS LAB BLOOD ORDERABLES Blanca l Result [facility] [place]) [address] [place] [address] [place] [address] [facility] * Hemoglobin and hematocrit (10/24/2024 12:58 AM SERVICES PROGRAM MANAGER) Hgb 13.5 13.0 - 17.5 g/dL Hct 40.1 38.9 - 50.3 % [facility] ([place]) Blood 10/24/2024 12:5 8 AM SERVICES PROGRAM MANAGER 10/24/2024 1:02 AM SERVICES PROGRAM MANAGER Joleen Camejo MD LAB BLOOD ORDERABLES Final Resul t [facility] ([place]) [address] [place] [address] [place] [address] * eGFR (10/23/2024 9:59 PM SERVICES PROGRAM MANAGER) eGFR >90 >=60 mL/min/1. 73 m2 Comment: [...] last reviewed 2021. Blood 10/23/2024 9:59 PM SERVICES PROGRAM MANAGER 10/23/2024 10:01 PM SERVICES PROGRAM MANAGER Mora BANKS LAB BLOOD ORDERABLES Blanca schultz Result [facility] ([place]) 1 [facility] Department of Laboratories [place], [place] [id number] * Differential, auto (10/23/2024 9:59 PM SERVICES PROGRAM MANAGER) Neutrophil abs 5.2 1.5 - 6.5 K/cumm Imm gran abs 0.1 0.0 - 0.1 K/cumm [facility] ([place]) Lymphocyte abs 2.6 0.8 - 3.3 K/cumm [facility] ([place]) Monocyte abs 0.8 0.2 - 0.8 K/cumm [facility] ([place]) Eosinophil abs 0.3 0.0 - 0.5 K/cumm [facility] ([place]) Basophil abs 0.1 0.0 - 0.1 K/cumm [...] revised on 2018. Blood 10/23/2024 9:59 PM SERVICES PROGRAM MANAGER 10/23/2024 10:01 PM SERVICES PROGRAM MANAGER Mora BANKS LAB BLOOD ORDERABLES Blanca l Result Performing Organization Address City/[facility] Co de Phone Number [facility] ([place]) 1 [facility] [place] [address] * CBC with auto differential (10/23/2024 9:59 PM SERVICES PROGRAM MANAGER) WBC 9.0 3.8 - 9.9 K/cumm Hgb [...] [facility] ([place]) Blood 10/23/2024 9:59 PM SERVICES PROGRAM MANAGER 10/23/2024 10:01 PM SERVICES PROGRAM MANAGER Mora BANKS LAB BLOOD ORDERABLES Blanca l Result Performing Organization Address City/[facility] Co de Phone Number [facility] ([place]) 1 [facility] [place] [address] * ABO/Rh (10/23/2024 9:59 PM SERVICES PROGRAM MANAGER) ABO/Rh B Positive Blood 10/23/2024 9:59 PM SERVICES PROGRAM MANAGER 10/23/2024 10:01 PM SERVICES PROGRAM MANAGER Narrative [facility] ([place] - 10/23/2024 11:41 PM SERVICES PROGRAM MANAGER Has the patient had Daratumumab or Isatuximab in the past 6 months?->Unknown Mora BANKS LAB BLOOD BANK TEST ORDER BRET Final Result Performing Organization Address [facility] Co de Phone Number [facility] ([place]) 1 [facility] [place] [address] * (ABNORMAL) Protime-INR (10/23/2024 9:59 PM SERVICES PROGRAM MANAGER) Pathologist [facility] PT 14.4(H) 9.7 - 13.0 sec [facility] ([place]) INR 1.33(H) 0.90 - 1.20 [facility] ([place]) Comment: Interpretive data Oral anticoagulant therapeutic ranges: Venous thromboembolism prophylaxis or treatment: 2.0-3.0 CARDIOLOGY Standard range: 2.0-3.0 High-intensity range: 2.5-3.5 Refer to indication-specific guidelines for appropriate target ranges for prosthetic heart valve replacement. Current interpretive data was last revised on 2019. Blood 10/23/2024 9:59 PM SERVICES PROGRAM MANAGER 10/23/2024 10:01 PM SERVICES PROGRAM MANAGER Mora BANKS LAB BLOOD ORDERABLES Blanca l Result Performing Organization Address City/[facility] Co de Phone Number [facility] ([place]) 1 [facility] [place] [address] * Antibody screen (10/23/2024 9:59 PM SERVICES PROGRAM MANAGER) [place], indirect, Gel Interpretation Negative ABSC Blood 10/23/2024 9:59 PM SERVICES PROGRAM MANAGER 10/23/2024 10:01 PM SERVICES PROGRAM MANAGER Narrative [facility] ([place] - 10/23/2024 11:41 PM SERVICES PROGRAM MANAGER Has the patient had Daratumumab or Isatuximab in the past 6 months?->Unknown Mora BANKS LAB BLOOD BANK TEST ORDER BRET Final Result [facility] ([place]) 1 [facility] [place] [address] * (ABNORMAL) Comprehensive metabolic panel (10/23/2024 9:59 PM SERVICES PROGRAM MANAGER) Sodium 138 135 - 145 mmol/L Potassium, pl 3.7 3.3 - 4.9 mmol/L [facility] Chloride 104 97 - 110 mmol/L [facility] ([place]) CO2 23 22 - 32 mmol/L [facility]) Anion gap 11 2 - 15 mmol/L [facility] ([place]) BUN 16 6 - 25 mg/dL [facility] Creatinine 0.81 0.80 - [...] [facility] ([place]) Blood 10/23/2024 9:59 PM SERVICES PROGRAM MANAGER 10/23/2024 10:01 PM SERVICES PROGRAM MANAGER Mora BANKS LAB BLOOD ORDERABLES Blanca l Result [facility] ([place]) 1 [facility] [place] [address] * Serum Hepatitis panel (05/24/2015 6:53 AM CDT) Pathologist [facility] HAV ab, IgM NON-REACTI VE NON-REACTI VE HISTORICAL RESULTS HBV surface ag NON-REACTI VE NON-REACTI VE HISTORICAL RESULTS HBV core ab, IgM NON-REACTI VE NON-REACTI VE HISTORICAL RESULTS HCV ab NON-REACTI VE NON-REACTI VE HISTORICAL RESULTS Hepatitis signal to cutoff ratio 0.05 <1.00 HISTORICAL RESULTS Serum 05/24/2015 6:53 AM CDT Narrative HISTORICAL RESULTS - 05/26/2015 10:00 AM CDT Test performed at [facility] [place] [address] [place] [address] Director: KARLEY ADORNO DO,MPH Historical Provider LAB BLOOD ORDERABLES Blanca l Result HISTORICAL RESULTS from Last 3 Months or Most Recently Relevant to Health Maintenance Insurance [facility] [place] [facility] MEDICARE ADVANTAGE Care Teams Automated Logistics Specialist Relationship Specialty Start Date End Date Chito Cornejo MD PCP - General 04/11/18
--- OUTSIDE RECORDS SUMMARY | 2025-01-10 12:36 | XMS_ITS | Clinical Summary ---
Author Organization [facility] Address [address] [place] [address] Phone Care Team Providers Care Registered Health Nurse Name Role Phone Provider, None Primary Care Provider Unavailabl e Allergies No known active allergies Medications amphetamine-dex troamphetamine (ADDERALL) 30 MG Tablet TK 1 T PO D 0 8 Active Calcium Carbonate-Vitam in D (Oyster Shell Calcium/D) 500-200 MG-UNIT Tablet Take 1 Tablet by mouth. Active naloxone HCl (Narcan) 4 MG/0.1ML Liquid 1 [place] by Nasal route as needed for Opioid [...] Insurance [facility] Care Teams Registered Health Nurse Relationship Specialty Start Date End Date Provider, None [place] PCP - General 05/01/23
--- OUTSIDE RECORDS SUMMARY | 2025-01-10 12:36 | XMS_ITS | Clinical Summary ---
Author Organization [facility] Address [address] [place] [address] Care Team Providers Care Station Attendant Name Role Phone Unavailable Primary Care Provider [...] Encounters Date Type Department Care Team Description 12/03/2024 4:30 PM CDT Telephone Check Up [facility] Oncology and Hematology - [place] [address] [place] [address] Davy Vera MD 11/27/[address] [facility] Oncology and Hematology - [place] [address] [place] [address] Davy Vera MD 11/21/[address] [facility] Oncology and Hematology - [place] [address] [place] [phone] Davy Vera MD 11/21/[address] [facility] Oncology and Hematology - [place] [address] [place] [address] Davy Vera MD 11/16/[address] [facility] Oncology and Hematology [facility] [address] [place] [address] Davy Vera MD 11/15/2024 3:00 PM CLOTH GRADER SUPERVISOR Office Visit [facility] Oncology and Hematology [facility] [address] [place] [address] Davy Vera MD Prostate cancer (CMS/HCC) (Primary Dx) 11/06/2024 External Device Data [facility] [...] on file Legal Sex Male 10:08 AM CLOTH GRADER SUPERVISOR Gender Identity Not on file Sexual Orientation Not on file Last Filed Vital Signs Vital Sign Reading Time Taken Comments Blood Pressure 123/69 11/15/2024 3:12 PM CLOTH GRADER SUPERVISOR Pulse 67 11/15/2024 3:12 PM CLOTH GRADER SUPERVISOR Temperature 36.1 C (97 F) 11/15/2024 3:12 PM CLOTH GRADER SUPERVISOR Respiratory Rate 15 11/15/2024 3:12 PM CLOTH GRADER SUPERVISOR Oxygen Saturation 96% 11/15/2024 3:12 PM CLOTH GRADER SUPERVISOR Inhaled Oxygen Concentration - - Weight 126.6 kg (279 lb) 11/15/2024 3:12 PM CLOTH GRADER SUPERVISOR Height 177.8 cm (5' 10 ) 11/15/2024 3:12 PM CLOTH GRADER SUPERVISOR Body Mass Index 40.03 11/15/2024 3:12 PM CLOTH GRADER SUPERVISOR Plan of Treatment Health Maintenance Due Date Last Done Comments Pre-Diabetes and Diabetes Screening 1960 COLORECTAL SCREENING 2003 Colorectal Cancer Screening 2003 FIT-DNA Q 3 years 2003 FIT/FOBT Q 1 year 2003 Flex Sig/CT Colonography Q 5 years 2003 ZOSTER VACCINE (1 of 2) 2008 RSV VACCINE (60+ or ) (1 - Risk 60-74 years 1-dose series) 2018 INFLUENZA VACCINE (#1) 2024 DTAP/TDAP/TD VACCINES (2 - Td or Tdap) 07/09/2031 PNEUMOCOCCAL VACCINE 50+ YEARS Completed 07/28/2023 Procedures Procedure Name Priority Date/Time Associated Diagnosis Comments PET TUMOR GA68 PSMA IMG W CT SKAlycia MD Routine 11/26/2024 10:33 AM CLOTH GRADER SUPERVISOR TESTOSTERONE FREE Routine 11/15/2024 4:2 6 PM CLOTH GRADER SUPERVISOR PSA Routine 11/15/2024 11:42 AM CLOTH GRADER SUPERVISOR from Last 3 Months Results * PET TUMOR GA68 ILLUCIX PSMA IMG W CT GABY WARD (11/26/2024 10:33 AM CLOTH GRADER SUPERVISOR) Anatomical Region Laterality Modality Positron Emissio n Tomography (PET) Davy Vera MD PE ORDERABLES Final Result * TESTOSTERONE FREE (11/15/2024 4:26 PM CLOTH GRADER SUPERVISOR) Blood Davy Vera MD CHEMISTRY ORDERABLES Final Resu lt * PSA (11/15/2024 11:42 AM CLOTH GRADER SUPERVISOR) Blood Davy Vera MD CHEMISTRY ORDERABLES Final Resu lt from Last 3 Months Insurance [employer] [facility]
--- NOTE | 2025-01-10 13:01 | ECG_ITS ---
Test Date: 2025-01-10 13:21:40 Measurements Intervals Benson Rate: 58 P: 29 WA: 227 QRS: -8 QRSD: 98 T: 12 QT: 405 QTc: 400 Interpretive Statements SINUS BRADYCARDIA WITH FIRST DEGREE AV BLOCK LOW QRS VOLTAGE IN PRECORDIAL LEADS VOLTAGE CRITERIA FOR LVH POOR R WAVE PROGRESSION BORDERLINE T WAVE ABNORMALITY- INFERIOR LEADS BASELINE ARTIFACT- I, II, III, AVR, AVL, AVF, V3-V6 No previous ECG available for comparison Electronically Signed On 01-10-2025 13:28:58 CDT by Reagan Horne D.O.
[2025-01-10 14:04] LABS: Basophils Percent Auto 0.5 % (0.2-1.2); Eosinophils Absolute Auto 0.2 K/mm3 (0-0.3); Eosinophils Percent Auto 3.3 % (0-4.4); Hematocrit 45.2 % (42.0-52.0); Hemoglobin 14.3 g/dL (14.0-18.0); Immature Granulocyte Absolute 0.04 K/mm3 (0.00-0.031); Immature Granulocyte Percent A 0.5 % (0-0.5); Lymphocytes Absolute Auto 1.81 K/mm3 (0.9-3.2); Lymphocytes Percent Auto 24.6 % (18.3-44.2); Mean Corpuscular HGB Conc 31.6 g/dl (32-36); Mean Corpuscular Hemoglobin 27.1 pg (26-34); Mean Corpuscular Volume 85.8 fl (80-100); Mean Platelet Volume 9.8 fl (7.4-10.4); Monocytes Absolute Auto 0.8 K/mm3 (0.1-0.6); Monocytes Percent Auto 11.3 % (2.6-8.5); Neutrophils Absolute Auto 4.4 K/mm3 (1.3-6.7); Neutrophils Percent Auto 59.8 % (45.5-73.1); Platelet Count Result 205 k/mm3 (150-375); Red Blood Count 5.27 M/mm3 (4.6-6.20); Red Cell Distribution Width 13.7 % (11.5-14.5); White Blood Count 7.4 K/mm3 (4.5-10.0)
[2025-01-10 14:20] LABS: INR 1.4; Prothrombin Time 17.5 Seconds (11.1-14.7)
[2025-01-10 14:21] LABS: Partial Thromboplastin Time 32.1 Seconds (22.3-36.8)
[2025-01-10 14:23] LABS: Add Urine Microscopic? NO; Appearance Urine Clear (Clear); Bilirubin Urine Negative (Negative); Blood Urine Negative (Negative); Color Urine Yellow (Yellow); Glucose Urine UA Negative (Negative); Ketones Urine Negative (Negative); Leukocyte Esterase Ur Negative LEU/UL (Negative); Nitrate Urine Negative (Negative); Protein Urine Negative (Negative); Urobilinogen Urine 0.2 mg/dL (<2.0)
[2025-01-10 14:36] LABS: Alanine Aminotransferase 55 U/L (6-50); Albumin Level 4.5 g/dL (3.5-5.1); Alkaline Phosphatase 72 U/L (38-126); Anion Gap 10 mmol/L (4-12); Aspartate Amino Transferase 31 U/L (17-59); Bilirubin,Total 1.6 mg/dL (0.2-1.3); Blood Urea Nitrogen 21 mg/dL (9-20); Calcium 9.3 mg/dL (8.4-10.2); Carbon Dioxide 25 mmol/L (22-30); Chloride 105 mmol/L (98-107); Estimated Glomerular Filt Rate > 60; Glucose 81 mg/dL (65-110); Potassium 4.3 mmol/L (3.4-5.0); Sodium 140 mmol/L (137-145)
== END 2025-01-10 12:01 | disposition home or self-care (01) ==
LOC: ANHSURGERY 12:10
PROVIDERS: PCP Internal Medicine; Visit Provider Urology
DX: Z01.818 Encounter for other preprocedural examination (principal); E78.5 Hyperlipidemia, unspecified; C61 Malignant neoplasm of prostate; R00.1 Bradycardia, unspecified; I44.0 Atrioventricular block, first degree
CPT/HCPCS: 36415; 71046; 80053; 81003; 85025; 85610; 85730; 86850; 86900; 86901; 93005

== ENCOUNTER 2025-01-16 00:04 | Day surgery (SDC) | payer MEDICARE, SELFPAY ==
--- NOTE | 2025-01-09 09:19 | PM.IMHP ---
H&P: HPI History of Present Illness Date/Time: 01/09/25 09:19 Chief Complaint: Prostate cancer Narrative: 64-year-old who underwent evaluation for PSA elevation to cyst 2.6 by an outside urologist at [facility] ( Dr. An). His biopsy showed 3 of 8 cores with Syl 4+4=8, all from the right side. Prostate volume is estimated at 30 gThis represents an NCCN high risk prostate cancer. Staging PSMA showed uptake only in the prostate bed. After discussion of options including active surveillance radiation therapy and robotic prostatectomy he elected for the latter. He is aware the risk including, but not limited to, need for additional therapy, failure to cure his cancer, rectal injury, urinary incontinence and erectile dysfunction. Review of Systems Cardiovascular: Cardiovascular: Denies chest pain, Denies lightheadedness, Denies palpitations and Denies dyspnea Respiratory: Respiratory: Denies dyspnea Gastrointestinal: Gastrointestinal: Denies diarrhea, Denies nausea and Denies vomiting Genitourinary: Genitourinary: Denies hematuria and Denies dysuria Endocrine: Endocrine: Denies palpitations [facility] Family History Family History (Updated 04/23/16 @ 23:21 by DOCTOR UNKNOWN) Sibling Patient's brother is in good health Family history of allergic disorder Family history of diabetes mellitus in first degree relative Father Family history of diabetes mellitus in first degree relative Patient's father is Acute myocardial infarction Social History Social History Smoking status: Never smoker Alcohol intake: never Meds Home Medications and Allergies Allergies Allergy/AdvReac Type Severity Reaction Status Date / Time No Known Allergies Allergy Unverified 04/28/14 23:09 Exam Const: General: no acute distress Resp: Effort & Inspection: normal respiratory effort GI: Inspection: non-distended GI Palp: No abdominal tenderness and No Guarding due to palpation present (GI) Auscultation: normal bowel sounds Assessment and Plan Assessment and plan (1) Prostate cancer: Code(s): C61 - Malignant neoplasm of prostate Status: Acute Assessment and Plan: Robotic assisted radical prostatectomy with bilateral pelvic lymphadenectomy
[2025-01-10 12:29] VITALS: BP 132/82; PULSE 59; RESP 16; TEMP 36.7; O2SAT 96; BMI 40.4
--- NOTE | 2025-01-10 12:50 | PC.NURSE ---
Report to the Outpatient Waiting Room, entrance under the green pavilion located off [facility], at time __0600am on date _01/16/25 . Planned Procedure Time: ___0730am .? Time changes happen often and if your time is changed the preop area will call you the afternoon before. - You and your visitor will be asked to self-screen and do not enter if you have any COVID symptoms. Please call surgeon if you need to reschedule. - A mask is optional within the hospital at this time. Patients may have clear liquids (water, carbonated beverages, clear teas, apple juice) until 3 hours prior to surgery with a maximum of 20 ounces. - No food from midnight until time of surgery and no smoking, or chewing tobacco (or any form of nicotine). No chewing gum, candy or mints. (0430am) - Take only the following medications with a SIP of water on the morning of surgery: None DO NOT STOP ANY OF YOUR OTHER PRESCRIPTION MEDICATIONS PRIOR TO SURGERY EXCEPT THE FOLLOWING Hold all vitamins and supplements for 3 days per anesthesiologist.Date to take last dose is 01/12/25 Medications to discontinue per physician Xarelto 3 days prior to surgery, per Dr Ward Date to take last dose 01/12/25 Please no make-up, nail mongolian, hairspray, perfume, deodorant, or body powder the day of surgery.? No jewelry (including any body piercings) or valuables the day of surgery, leave them at home.? Please take a shower or bath the night before, or the morning of, surgery with an antibacterial soap.? Wear comfortable, loose fitting clothing.? - Jewelry must be removed prior to entering the operating room.? Rings and piercings that are not removed may be cut off. - The hospital will not accept responsibility for valuables.? - Please leave all valuables, including medications, at home the day of surgery. If you are going home after surgery, a licensed pile driver operator must drive you home.? - NO public transportation without another adult if you receive anesthesia. - We recommend that an adult stay with you for 24 hours following discharge. - We also recommend that you do not drive, make important decision, drink alcoholic beverages, or take any drugs that were not prescribed by your health care provider for at least 24 hours after your discharge time. Follow any additional instructions given to you from your surgeon. Telephone instructions given to __Patient and and asked if any additional questions and then verbalized understanding. Patient advised to call surgeon office or pre surgery nurse liaison [phone] if any additional questions.
--- NOTE | 2025-01-15 14:49 | WPDANESEPPF ---
Anes - Initial Pre Proc Eval Procedure: Operation Date: 01/16/25 07:30 Proposed Procedures p Robotic Assisted Laparoscopic Prostatectomy, Possible Bilateral Pelvic Lymph Node Dissection - Wilmar Ward MD Date/Time: 01/15/25 14:49 Surgeon: Wilmar Ward MD Pre Op Diagnosis: prostate cancer Patient Data Age: 64 Gender: M Height: 1.78 m Weight: 127.8 kg Last Vital Signs Temp 98.1 F 01/10/25 12:29 Pulse 59 L 01/10/25 12:29 Resp 16 01/10/25 12:29 BP 132/82 01/10/25 12:29 Pulse Ox 96 01/10/25 12:29 O2 Del Method Room Air 01/10/25 12:29 Allergies Allergy/AdvReac Type Severity Reaction Status Date / Time No Known Allergies Allergy Verified 01/16/25 07:03 Home Medications ?Medication ?Instructions ?Recorded ?Confirmed ?Type ascorbic acid (vitamin C) 500 mg 500 mg PO DAILY 01/10/25 01/16/25 History capsule,extended release atorvastatin 40 mg tablet 40 mg PO QPM 01/10/25 01/16/25 History cholecalciferol (vitamin D3) 50 50 mcg PO DAILY 01/10/25 01/16/25 History mcg (2,000 unit) capsule ferrous sulfate 325 mg (65 mg 325 mg PO BID 01/10/25 01/16/25 History iron) tablet (FeroSul) loratadine 10 mg tablet (Allergy 10 mg PO DAILY 01/10/25 01/16/25 History Relief (loratadine)) magnesium 200 mg tablet 400 mg PO DAILY 01/10/25 01/16/25 History rivaroxaban 20 mg tablet (Xarelto) 20 mg PO QPM 01/10/25 01/16/25 History vitamin E 200 unit capsule 268 mg PO DAILY 01/10/25 01/16/25 History Patient hx anesthesia problems: none Family hx anesthesia problems: none Results Review: All pre-operative results and documents have been reviewed as part of the pre-operative evaluation. [facility] Family History Family History (Updated 04/23/16 @ 23:21 by DOCTOR UNKNOWN) Sibling Patient's brother is in good health Family history of allergic disorder Family history of diabetes mellitus in first degree relative Father Family history of diabetes mellitus in first degree relative Patient's father is Acute myocardial infarction Social History Social History Smoking status: Never smoker Alcohol intake: never Substance use: never Living arrangements: with family Additional living arrangements comments: Spiritual care concerns: No Anes - Eval Final PreProcedure Day of Procedure 01/15/25 14:49 Patient weight: morbidly obese Heart: regular rate and rhythm Lungs: clear to auscultation Airway: Mallampati scale class III Neurological: alert and oriented Last oral intake: >/= 8 hours ASA classification: III Emergent: no Anesthetic plan: proceed Anesthesia type and monitoring: general ETT and standard monitoring Results Review: All pre-operative results and documents have been reviewed as part of the pre-operative evaluation. Informed Consent: The patient's anesthetic plan and its attendant risks and benefits were discussed with the patient/family/POA. Questions were solicited and answers provided to the satisfaction of the patient/family/POA.
[2025-01-16] VITALS (21 sets, daily range): BP systolic 101–136; BP diastolic 51–78; PULSE 59–84; RESP 12–25; TEMP 36.4–36.9; O2SAT 92–97
--- OUTSIDE RECORDS SUMMARY | 2025-01-16 00:07 | XMS_ITS | Data Portability ---
Author Organization [place] [facility], Main Office Address [address] [place] [address] Assessment Encounter Date Assessment Date Assessment LastModified [...] Diagnostic sleep study 03/17/16 AHI = 37 [facility] titration sleep study 10/11/21 sleep onset = 5.5 minutes, REM onset = 53.5 minutes, ResMed medium AirFit F30i full face mask @ 12 cmH2O, PLMI = 26 [facility] titration sleep study 02/22/23 sleep onset [...] remain at 14-15 cmH2O. Keep EPR standard part time. Keep ramp off. Keep humidifier level at [...] This note is dictated and transcribed by [employer]. Custodial Supervisor variances may occur. Despite proofreading, typographical errors may occur. Occasional wrong-word or '[id number]' substitutions may have occurred due to the [...] available Lab lipid panel, serum [address] (Lab), [address] [place], [address], 11/13/2024 11:28:55 CBC w/ auto diff 2024 025 [facility] (Lab), [address] [place], [address], 01/10/2025 15:50:15 TSH, serum or plasma [address] (Lab), [address] [place], [address], 11/13/2024 11:28:55 CMP, serum or plasma 2024 025 [facility] (Lab), [address] [place], [address], 01/10/2025 16:45:14 vitamin D, 25-hydrox y, total, serum 2024 025 [email or web address] [facility] (Lab), [address] [place], [address], 11/13/2024 11:28:56 vitamin B12 + folate, serum or blood 2024 025 [email or web address] [facility] (Lab), [address] [place], [address], 11/13/2024 11:28:56 ferritin, serum or plasma 2024 025 [facility] (Lab), [address] [place], [address], 01/11/2025 11:28:01 vitamin E, serum 2024 025 [facility] (Lab), [address] [place], [address], 01/11/2025 11:28:01 Referral vascular surgeon referral - Please call patient to schedule an appointme nt. Thank you. 2024 025 [facility] Nash Plummer MD, [address] [facility], [address], [place], [address], 11/13/2024 16:05:21 ophthalmo logist referral - Please call patient to schedule an appointme nt. Thank you 2024 025 [facility], [address], [place], [address], 11/13/2024 15:55:15 wound care referral - Please call patient to schedule an appointme nt. Thank you. 2024 025 [facility], [address], [place], [address], 11/13/2024 15:55:16 podiatris t referral 2024 025 [email or web address] Roman Escobar DPM, [address] [facility], [address], [place], [address], 11/13/2024 15:24:40 gastroent erologist referral - Please call patient to schedule an appointme nt. Thank you. 2024 025 [email or web address] Elena Bhagat MD, [address], [address], [place], [address], 11/13/2024 15:11:37 Procedures colonosco py screening (PROC) - Please call patient to schedule an appointme nt. Thank you. 2024 025 [email or web address] Austin Orlando MD, [address] [place], [address], 01/14/2025 08:43:50 Surgeries None recorded. Imaging None recorded. Medication Orders ferrous sulfate 325 mg (65 mg iron) tablet 2024 025 [id number], [address], [place], [place], [id number], 11/15/2024 14:51:25 Vitamin C 500 mg tablet 2024 025 [facility]93250, [address], [place], [place], [id number], 11/15/2024 14:51:24 vitamin E mixed 200 unit tablet 2024 025 [facility] #44941, [address], [place], [place], [phone], 11/13/2024 10:22:21 Patient TargetsNo targets recorded. Patient Instructions Encounter Date Encounter Id Patient Instructions Last Modified By Organization Details Last Modified Time 10/19/2024 [id number] 1. Prostate ultrasound with biopsies performed today 2. We will schedule him for a telehealth in the next 7-10 days discussed the results or he can come into the office Not available 10/19/2024 16:41:51 11/02/2024 [id number] 1. The patient needs to be referred for consultation for radiation therapy Not available 11/02/2024 14:44:24 Reason for Referral Nurse College Referral for Onyc homycosis of toenails Referring Physician: Yarelis Martinez Internal Medicine, Encounter Date: 11/13/2024 Application Systems Administrator Referral for Cataract Please call patient to schedule an appointment. Thank you Referring Physician: Yarelis Martinez Internal Medicine, Encounter Date: 11/13/2024 Tracer Powder Blender Referral for Liver enzymes level above reference [...] Abnormal Flag Note LastModifiedBy Organization Detail LastModifiedTime 11/12/1911/15/2024 RYANN TIN ferritin 140 NG/mL 24-380 normal Not Available [employer] [facility] [address] [place], [address], 11/15/2024 13:14:09 11/12/19 25 11/15/2024 VITAM IN E (TOCO PHERO L) vitamin E, alpha tocopherol 10.0 mg/L 5.7-19 .9 Level s of alpha -toco phero l <5 mg/L are consi stent with Vitam in E defic iency in adult s. Not Available [email or web address] [facility] [address] [place], [address], 11/15/2024 13:14:11 11/12/19 25 11/15/2024 VITAM IN E (TOCO PHERO L) vitamin E, beta gamma tocopherol <1.0 mg/L <4.4 (Note ) Vitam in suppl ement ation withi n 24 hours prior to blood draw may affec t the accur acy of resul ts. This test was devel oped and its doug tical perfo rmanc e pbalo cteri stics have been deter mined by [email or web address] [facility]. It has not been clear ed or appro adrianna by the FDA. This assay has been valid ated pursu ant to the CLIA regul ation s and is used for clini preeti purpo ses. MDF med fusio n [address] [facility] [address] [place] [address] [phone] Miri Dobson MD, PhD Not Available [employer] [facility] [address], [place], [address], 11/15/2024 13:14:11 12/15/19 25 12/14/2024 imagi ng/di agnos tic resul t No observ ation record ed. [facility] [address] [facility], [place], [address], 12/14/2024 19:56:15 01/11/20 25 01/10/2025 imagi ng/di agnos tic resul t No observ ation record ed. [facility] [address], [place], [address], 01/10/2025 14:43:39 Result Notes None recorded. Problems Name Problem SNOMED Code Status Onset Date Resolution Date Notes Provider Name and Address Organization Details Recorded Time Current tear of medial cartilage AND/OR meniscus of knee Active Not Available [facility] 3 12:49:31 Hyperlipid emia 22794006 Active 2022 Yarelis bryan MD [address] [facility], [facility] [address], [place], [address] , [facility] 3 10:09:14 Obstructiv e sleep apnea syndrome 74378363 Active 2022 Yarelis bryan MD [address], [address], [place], [address] , [place] [facility] 3 10:09:18 Vitamin D deficiency 44873112 Active 2022 Yarelis bryan MD [address], [address], [place], [address] , [place] [facility] 3 10:11:00 Deep venous thrombosis of lower extremity 984243355 Active 2022 Yarelis bryan MD [address], [address], [place], [address] , [place] [facility] 3 10:21:28 Cataract 716206401 Active 2022 Yarelis bryan MD [address], [address], [place], [address] , [place] [facility] 3 10:30:54 Periodic limb movement disorder 422463591 Active 2022 Andres Foreman MD [address], [address], [place], [address] , [place] [facility] 3 10:22:48 Iron deficiency 81165054 Active 2022 Andres Foreman MD [address], [address], [place], [address] , [place] [facility] 3 11:47:50 Vitamin E deficiency 83553529 Active 2022 Andres Foreman MD [address], [address], [place], [address] , [place] [facility] 3 11:47:59 Serum vitamin B12 below reference range 136176218 Active 2023 Yarelis bryan MD [address], [address], [place], [address] , [place] [facility] 4 17:22:48 Peripheral venous insufficie ncy 59099172 Active 2023 Roman Escobar DPM [address], [address], [place], [address] , [facility] 4 12:21:07 Xerosis due to atopic dermatitis 646361996 Active 2023 Roman Escobar DPM [address], [address], [place], [address] , [facility] 4 15:25:23 Prostate nodule 0899169780983 09 Active 2023 Shahbaz Hendrix MD [address], [address], [place], [address] , [facility] 4 15:20:38 Influenza caused by Influenza A virus 592017180 Active 2023 Jean Carlos Curry LPN null, [facility] 4 12:54:02 Upper respirator y infection 48832250 Active 2023 Jean Carlos Curry LPN null, [facility] 4 12:58:26 Prostate specific antigen above reference range 554442224 Active 2024 Maryann Moser null, [facility] 5 09:06:08 Pain in toe 199233127 Active 2024 Roman Escobar DPM [address], [address], [place], [address] , [facility] 5 11:30:41 Dystrophia unguium 51723501 Active 2024 Roman Escobar DPM [address], [address], [place], [address] , [facility] 5 11:30:41 Primary adenocarci noma of prostate Active 2024 Shahbaz Hendrix MD [address], [address], [place], [address] , [facility] 5 14:44:07 Malignant tumor of prostate 450386176 Active 2024 Maryann gillette, [place] - [facility] 5 09:08:34 Peripheral vascular disease 531596527 Active 2024 Yarelis bryan MD [address], [address], [place], [address] , [facility] 5 10:51:27 Liver enzymes level above reference range 652406449 Active 2024 Yarelis bryan MD [address], [address], [place], [address] , [facility] 5 10:51:27 Onychomyco sis of toenails 014624074 Active 2024 Yarelis bryan MD [address], [address], [place], [address] , [facility] 5 10:51:27 Ankle pain 900743606 Active 2024 Yarelis bryan MD [address], [address], [place], [address] , [facility] 5 10:51:27 Multiple open wounds of lower leg 038813332 Active 2024 Yarelis bryan MD [address], [address], [place], [address] , [facility] 5 10:51:27 Unable to cut own toenails 662780805 Active 2024 Roman Escobar DPM [address], [address], [place], [address] , [facility] 5 14:41:25 Notes:Medical History: Catar act Bilateral hearing loss/tinnitus Rhinitis Persistent early REM onset Obesity with severe OSAHS, AHI = 37, 03/17/16, on autoCPAP c/o IVRC Mild LAE, EF 58% Hyperlipidemia Hemorrhoids Prostate ca PLMD Iron deficiency Vit B12 deficiency Vit D deficiency OA PVD Left DVT on Xarelto Epidermal cyst Procedure History: Left shoulder replacement 2014 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 Procedures Surgical History Date Name Laterality Status Provider Name and Address Organization Details Recorded Time 5 Nail Debridement completed Roman Escobar DPM [address], [address], [place], [address], [employer] [facility] 01/08/2025 14:40:57 5 2. Prostate Biopsy completed Shahbaz Hendrix MD [address], [address], [place], [address], [employer] [facility] 10/19/2024 16:41:13 4 Nail Debridement completed Roman Escobar DPM [address], [address], [place], [address], [employer] [facility] 07/10/2024 13:10:24 4 Wound Care-Podiatry completed Daniel Yo RN PA [employer] [facility] 06/20/2024 15:11:40 4 Wound Care-Podiatry completed Norma Ellis RN PA [employer] [facility] 05/02/2024 12:17:37 4 Wound Care-Podiatry completed Roman Escobar DPM [address], [address], [place], [address], [employer] [facility] 04/25/2024 12:31:52 4 Nail Debridement completed Parker Abdi DPM [address], [address], [place], [address], [employer] [facility] 12/05/2023 10:15:10 4 Trigger Point Injection completed Parker Abdi DPM [address], [address], [place], [address], [employer] [facility] [employer] [facility] 11/24/2023 16:01:38 4 Unna boot - LE edema completed Parker Abdi DPM [address], [address], [place], [address], [employer] [facility] 11/24/2023 16:01:14 total shoulder replacement completed Mar Daly CESAR PA - [facility] 07/28/2023 10:02:28 Cataract Surgery completed Mar Daly CESAR [facility] 07/28/2023 10:02:36 Imaging Results Imaging Date Name Status LastModified by Organiz ation Details LastModified Time 12/14/2024 imaging/diagn ostic result active [facility] [address], [place], [address], 12/14/2024 19:56:15 01/10/2025 imaging/diagn ostic result active [facility] [address] [facility] [address], [place], [address], 01/10/2025 14:43:39 Procedure Notes None recorded. Medical Equipment None [...] cm 82 /min 98.1 [degF] 40.3 kg/m2 314102. 46 g 98 % 98 % 167 mm[Hg] 90 mm[Hg] Nakia Rico CMA [place] [facility] [employer] [facility] 5 16:20:24 Date Recorded Body height Body mass index (BMI) Body weight Body temperature Heart rate Oxygen saturation Oxygen saturation in Arterial blood by Pulse oximetry Systolic blood pressure Diastolic blood pressure Provider Name and Address Organization Details Last Updated DateTime 5 177.8 cm 40.3 kg/m2 048999. 46 g 97.6 [degF] 85 /min 97 % 97 % 144 mm[Hg] 75 mm[Hg] Maryann Moser [facility] Recommend [facility] 5 14:12:01 Date Recorded Body height Body mass index (BMI) Body weight Body temperature Heart rate Oxygen saturation Oxygen saturation in Arterial blood by Pulse oximetry Pain severity - 0-10 verbal numeric rating [Score] - Reported Systolic blood pressure Diastolic blood pressure Provider Name and Address Organization Details Last Updated DateTime 5 177.8 cm 40.2 kg/m2 437079. 86 g 98.4 [degF] 70 /min 95 % 95 % 0 144 mm[Hg] 70 mm[Hg] Yaa Scott MA [facility] Recommend [facility] 5 10:41:11 Date Recorded Body height Body mass index (BMI) Body weight Body temperature Oxygen saturation Oxygen saturation in Arterial blood by Pulse oximetry Systolic blood pressure Diastolic blood pressure Provider Name and Address Organization Details Last Updated DateTime 5 177.8 cm 40.2 kg/m2 472601. 86 g 98.4 [degF] 95 % 95 % 144 mm[Hg] 70 mm[Hg] Razia Bae MA [facility] Recommend [facility] 5 10:09:16 Date Recorded Heart rate Heart rate Respiratory rate Provider Name and Address Organization Details Last Updated DateTime 11/13/2024 71 /min 71 /min 15 /min Andres Foreman MD [address] [place] [address], [address], [facility] 11/13/2024 10:50:59 Date Recorded Body height Body mass index (BMI) Body weight Heart rate Respiratory rate Oxygen saturation Oxygen saturation in Arterial blood by Pulse oximetry Systolic blood pressure Diastolic blood pressure Provider Name and Address Organization Details Last Updated DateTime 5 177.8 cm 40.2 kg/m2 679914. 86 g 72 /min 14 /min 98 % 98 % 127 mm[Hg] 75 mm[Hg] Vania Wylie [facility] Recommend [facility] 5 11:40:47 Social History Question Answer Notes LastModified by Organization Details LastModified Time Tobacco Smoking Status Never Smoker Mar Daly, CESAR gillette, REBEKAH [facility] 07/28/2023 10:00:00 Do You Have An Advance [...] Or The Highest Degree You Have Received? [id number] Information not available 07/28/2023 Do You Have [...] Do You Have A Medical Power Of Certification And Selection Specialist? No Information not available 07/28/2023 Do You Have Moisture Problems In Your Home? No Information not available 09/20/2023 What Was The Date Of Your Most Recent Tobacco Screening? 11/13/2024 Information not available 11/13/2024 Have You Ever Been Counseled For Unhealthy Alcohol Use? No Information not available 07/28/2023 Do You Have Any Pets? Yes 5 Cats 2 Dogs [email or web address] Information not available 02/21/2024 What Is Your [...] Anxious, Or Unable To Sleep At Night)? [id number] Information not available 07/28/2023 Do You Use [...] 07/28/2023 What is your exercise level? None dn Information not available 07/28/2023 Mental Status Question Answer Note LastModified by Organization D etails LastModified Time Do you have difficulty concentrating, remembering or making decisions? Yes Information no t available 07/28/2023 Family History Relationship Description Onset Age of this Age Resolved Age Notes LastModified by Organization Details LastModified Time Mother General health good dece ed dn Not available 07/28/2023 09:58:38 Father Diabetes mellitus [email or web address] Not available 2022 09:58:55 Medical History Condition Response NERVE DISEASE N BLINDNESS N RHEUMATIC FEVER N KIDNEY STONES N BLADDER PROBLEMS N MRSA N OTHER # 1 N POLIO N LUNG DISEASE/DISORDER N HISTORY OF DRUG ABUSE N RADIATION / CHEMOTHERAPY N COPD N Other # 2 N BLOOD DISEASES N EAR OR HEARING PROBLEMS N MUMPS N SHINGLES N BOWEL PROBLEMS N DEPRESSION (INCLUDING POST ) N FAILED BACK SYNDROME N STROKE/TIA N ULCERS N BENIGN PROSTATIC HYPERPLASIA N MEASLES N HYPOTENSION N MYOCARDIAL INFARCTION N OBESITY N GERD/NAUSEA N ANEURYSM N URINARY/BLADDER/KIDNEY PROBLEMS N CORONARY ARTERY DISEASE (CAD) N Do you have Advance directive? N ADDICTION CONCERNS N ENDOMETRIOSIS N Impotence N USE OF BLOOD THINNERS Y SKIN PROBLEMS N GASTROINTESTINAL DISORDER N PERIPHERAL VASCULAR DISEASE N MUSCLE,JOINT OR BONE PROBLEMS N GASTROINTESTINAL BLEEDING N BLOOD CLOTS Y ASTHMA N Abdominal Pain N CATARACTS N ARTERIAL INSUFFICIENCY N ERECTILE DYSFUNCTION N VARICOSITIES N GI PROBLEMS N Low Testosterone N INFERTILITY N AIDS/HIV N CHEMOTHERAPY / RADIATION N LIVER DISEASE N MALE HYPOGONADISM N HYPERTENSION N Deficiency N TOURETTE'S N ANXIETY DISORDER N BLOOD TRANSFUSION N ANEMIA/BLOOD DISORDER N CHRONIC EAR INFECTIONS N TUBERCULOSIS N GLAUCOMA N FOOT PROBLEM N DIVERTICULITIS N CHICKENPOX N SLEEP APNEA Y BACK INJECTIONS N ALLERGIES/HAYFEVER Y INFECTIOUS DISEASE N HEART ARRHYTHMIA N PROSTATE N ESRD N INSOMNIA N HIGH CHOLESTEROL / HYPERLIPIDEMIA Y HYPERTHYROIDISM N EYE PROBLEMS N PVD N EDEMA N CHRONIC PAIN SYNDROME N HYPOTHYROIDISM N CONSTIPATION N CAROTID BLOCKAGE N BACK / NECK PROBLEMS N ATHEROSCLEROSIS [...] N ALZHEIMER'S DISEASE N Brain Problems N HERPES N DEMENTIA N HEADACHES/MIGRAINES N SEIZURES/EPILEPSY N VASCULAR DISEASE N PACEMAKER N DIZZINESS N HEART DISEASE/HEART PROBLEMS N KIDNEY DISEASE N MULTIPLE SCLEROSIS N NEUROPSYCHOLOGICAL N CARDIAC ARRHYTHMIA N CANCER: SPECIFY N ATRIAL FIBRILLATION N Gall Stones N PULMONARY EMBOLISM N AUTOIMMUNE DISEASE N Immunizations Vaccine Type Date Status Note Provider Nam e and Address Organization Details Recorded Time Pneumococcal conjugate PCV20, polysaccharide MHI420 conjugate, adjuvant, PF 3 completed Yarelis Martinez MD [address] [facility], [address], [place], [address], [facility] [employer] [facility] 07/28/2023 17:42:18 Past Encounters Encounter ID Performer Location Encounter Start Date Encounter Closed Date Diagnosis/Indication Diagnosis SNOMED-CT Code Diagnosis ICD10 Code Diagnosis Note [id number] Yarelis bryan MD [facility] Internal Med [address] [facility], [address] [place] [address] 07/28/2023 09:45:09 07/28/2023 10:40:40 Screening - NAD 199039592 Z13.9 C-scope: Get this Get yearly flu shotGet Tdap if not doneAgreea ble to do PCV #20 07/28/2023 Get shingrix vaccineCan do COVID 19 vaccine and also RSV RTC in 4 months, do labs, ER if worse Screening for malignant neoplasm of colon 645511660 Z12.11 Hyperlipidemia 34609619 E78.5 Not on any medsGet labs Obstructiv e sleep apnea syndrome 93248098 G47.33 Sleep study 02/22/[address] Tre Ramirez get a referral to Dr Foreman Screening for malignant neoplasm of prostate 867293739 Z12.5 Vitamin D deficiency 347 99227 E55.9 Serum suzie min B12 below reference range 216517074 R79.89 Peripheral vascular disease 103310398 I73.9 Needs a referral to cardiology , will see Dr Plummer today 07/28/2023 at 2.00pm Deep venou s thrombosis of lower extremity 780629350 I82.409 L leg DVT as per his historyDoe s have venous stasis skin changes and also pitting edema but dave LETreated in the ER for L LE cellulitis On xareltoNee ds to see cardiology Addendum: 07/28/2023 Dr Plummer SL 07/28/2023 Cataract 279354191 H26.9 L eye doneNeeds R eye Administra tion of pneumococcal vaccine 40961559 Z23 [id number] Andres Foreman MD [facility] [address] 09/01/2023 09:32:16 09/02/2023 08:18:32 Obstructive sleep apnea syndrome 45724920 G47.33 Periodic l imb movement disorder 565003355 G47.61 D50.8 E83.42 [id number] Andres Foreman MD [place] [address] 09/20/2023 10:11:01 09/21/2023 09:02:48 Obstructive sleep apnea syndrome 80320063 G47.33 Iron deficiency 94687710 E61.1 Vitamin E deficiency 541 98213 E56.0 [id number] Yarelis bryan MD [facility] Internal Med [facility] [address] [place] [address] 10/18/2023 10:09:16 10/20/2023 10:08:49 Screening - NAD 642039917 Z13.9 C-scope: Get this Get yearly flu shotGet Tdap if not doneAgreea ble to do PCV #20 07/28/2023 Get shingrix vaccineCan do COVID 19 vaccine and also RSV RTC in 4 months, do labs, ER if worse Screening for malignant neoplasm of colon 047831259 Z12.11 Hyperlipidemia 92072230 E78.5 Not on any medsGet labs Obstructiv e sleep apnea syndrome 49357688 G47.33 Sleep study 02/22/[address] Tre Ramirez get a referral to Dr Foreman Vitamin D deficiency 347 61346 E55.9 Serum suzie min B12 below reference range 879728795 R79.89 Peripheral vascular disease 879893205 I73.9 Needs a referral to cardiology , will see Dr Plummer 09/16/2023 , f/u in 6 months Deep venou s thrombosis of lower extremity 342610289 I82.409 L leg DVT as per his historyDoe s have venous stasis skin changes and also pitting edema but dave LETreated in the ER for L LE cellulitis On xarelto Dr Plummer [place] Cataract 749997704 H26.9 L eye doneNeeds R eye Liver enzy mes level above reference range 403526007 R74.8 US liver 09/05/2023 : Hepatic steatosisN eeds to see GI Prostate s pecific antigen above reference range 986488957 R97.20 High normal PSANeeds to see urology Hyperproteinemia 5565136 9 E88.09 Get UPEP/SPEP Ankle pain 219117105 M25 .579 Get a referral to podiatry [id number] Parker Abdi DPM [facility] [place] [address] [address] 11/24/2023 14:51:54 11/24/2023 16:06:14 Pain in left foot 5691238828 04810 M79.672 Edema of l ower extremity 365377875 R60.0 Left foot neuritis 47449 79172 00282 G57.82 Dry skin dermatitis 2600 84236 L85.3 [id number] Parker Abdi DPM [facility] [place] [address] 93 [place] [address] 1 12/05/2023 09:34:44 12/05/2023 11:09:15 Onychomycosis of toenails 891224776 B35.1 [id number] Andres Foreman MD S_[facility] Pulmonolo [facility] [address] [address] 12/21/2023 09:43:44 12/22/2023 09:46:44 Obstructive sleep apnea syndrome 33137607 G47.33 Iron deficiency 55518016 E61.1 Vitamin E deficiency 541 86301 E56.0 [id number] Yarelis bryan MD [facility] Internal Med [facility] [address] [place] [address] 1 02/21/2024 09:41:06 02/21/2024 10:25:01 Screening - NAD 483140872 Z13.9 C-scope: Get this Get yearly flu shotGet Tdap if not doneUTD on PCV #20 07/28/2023 Get shingrix vaccineCan do COVID 19 vaccine and also RSV RTC in 4 months, do labs, ER if worse Screening for malignant neoplasm of colon 391810313 Z12.11 Hyperlipidemia 81474646 E78.5 On atorvastat in 40mg dailyGet labs Obstructiv e sleep apnea syndrome 09982875 G47.33 Sleep study 02/22/[address] Tre carrasco t Dr Foreman 12/21/2023 , next 03/22/2024 Vitamin D deficiency 347 42352 E55.9 Serum suzie min B12 below reference range 797901454 R79.89 Peripheral vascular disease 297148003 I73.9 Dr Plummer 09/16/2023 , f/u in 6 months Deep venou s thrombosis of lower extremity 553258318 I82.409 L leg DVT as per his historyDoe s have venous stasis skin changes and also pitting edema but dave LETreated in the ER for L LE cellulitis On xarelto Dr Plummer [facility] Cataract 905459317 H26.9 L eye doneNeeds R eye Liver enzy mes level above reference range 327801761 R74.8 US liver 09/05/2023 : Hepatic steatosisN eeds to see GI Prostate s pecific antigen above reference range 773134823 R97.20 High normal PSANeeds to see urology Hyperproteinemia 9739096 9 E88.09 Get UPEP/SPEP Ankle pain 232156316 M25 .579 Dr Abdi 11/24/2023 , 12/05/2023 States that he is doing much better, and now is able to walk up and down stairs [id number] [facility] Pulmonolo gy [address] [address] 03/22/2024 09:52:59 03/23/2024 15:18:44 Obstructive sleep apnea syndrome 63004342 G47.33 Iron deficiency 13067724 E61.1 Vitamin E deficiency 541 03321 E56.0 [id number] Roman Escobar DPM [facility] [address] [place] [address] 04/25/2024 10:48:12 04/25/2024 12:36:31 Deep venous thrombosis of lower extremity 565035731 I82.409 repeat ultrasound due to lower extremity pain, history of DVTfollow- up results Peripheral venous insufficiency 94905821 I87.2 recommend chronic compressio n therapy Open wound of left lower leg 4684930909 7746163 S81.802A multiple lower legcontinu e compressio nkeep clean and dryfollow- up 1 week Open wound of right lower leg 0137078903 7919258 S81.801A as above [id number] Yarelis bryan MD S_[facility] Internal Med [facility] [address] [facility] [address] [place] [address] 04/26/2024 17:15:33 04/26/2024 18:07:15 Peripheral vascular disease 223901101 I73.9 Dr Plummer 09/16/2023 , f/u in 6 [facility]Se[facility] Onychomyco sis of toenails 703489354 B35.1 In grown toenails, dave big toesGet a referral to podiatry Hyperlipidemia 76310266 E78.5 On atorvastat in 40mg dailyGet labs Vitamin D deficiency 347 33774 E55.9 Serum suzie min B12 below reference range 932556283 R79.89 [id number] Roman Escobar DPM [facility] [address] [place] [address] 05/02/2024 11:15:40 05/02/2024 16:08:25 Deep venous thrombosis of lower extremity 733179535 I82.409 repeat ultrasound due to lower extremity pain, history of DVTfollow- up results Peripheral venous insufficiency 95879490 I87.2 recommend chronic compressio n therapyRec ommend follow-up with vascular for end of venous procedures if possible Open wound of left lower leg 0380011460 3708129 S81.802A multiple lower leg- gentian roseanna applied todayconti nue compressio nkeep clean and dryfollow- up 1 week Open wound of right lower leg 7717703613 6154750 S81.801A healed [id number] Yarelis bryan MD [facility] Internal Med [facility] 2043 [facility], [facility] [address] [place] [address] 06/14/2024 09:39:45 06/14/2024 10:11:04 Peripheral vascular disease 050478494 I73.9 Dr Grewal [facility] 05/04/2024 , f/u in 6 monthsSe[facility] the ER [facility] Dr Holm be on xarelto lifelong as per [facility] Onychomyco sis of toenails 914532332 B35.1 In grown toenails, dave big toesDr Shawn 05/02/2024 Hyperlipidemia 55057241 E78.5 On atorvastat in 40mg dailyGet labs Vitamin D deficiency 347 09214 E55.9 Serum suzie min B12 below reference range 929214684 R79.89 Screening - NAD 94495190 3 Z13.9 C-scope: Get this Get yearly flu shotGet Tdap if not doneUTD on PCV #20 07/28/2023 Get shingrix vaccineCan do COVID 19 vaccine and also RSV RTC in 4 months, do labs, ER if worse Screening for malignant neoplasm of colon 931422103 Z12.11 Obstructiv e sleep apnea syndrome 29326662 G47.33 Sleep study 02/22/[address] [place] neurologis tDr Foreman Deep venou s thrombosis of lower extremity 363704557 I82.409 L leg DVT as per his historyDoe s have venous stasis skin changes and also pitting edema but dave LETreated in the ER for L LE cellulitis On xarelto Dr Plummer [facility] Cataract 662533742 H26.9 L eye doneNeeds R eye Liver enzy mes level above reference range 570321780 R74.8 US liver 09/05/2023 : Hepatic steatosisN eeds to see GI Prostate s pecific antigen above reference range 671699058 R97.20 High normal PSANeeds to see urology Ankle pain 293055962 M25 .579 Dr Abdi 11/24/2023 , 12/05/2023 States that he is doing much better, and now is able to walk up and down stairs Multiple o pen wounds of lower leg 300145876 S81.801A Sees Dr Cantor eds to see wound clinicStar t on augmentinE R if worse [id number] Andres Foreman MD S_[facility] [address] [address] 06/20/2024 09:47:59 06/28/2024 11:37:07 Obstructive sleep apnea syndrome 60021722 G47.33 Iron deficiency 66785372 E61.1 Vitamin E deficiency 541 75818 E56.0 [id number] Roman Escobar DPM [facility] [address] [place] [address] 06/20/2024 14:12:50 06/20/2024 15:58:02 Abrasion of skin of right lower leg 3744892141 4807781 S80.811A gentian roseanna applied todayNew a wound care until healedIf not healed in 1 week return to office Peripheral venous insufficiency 38717608 I87.2 recommend chronic compressio n therapyRec ommend follow-up with vascular for end of venous procedures if possible Xerosis du e to atopic dermatitis 544534651 L85.3 left legfollow- up 3 weeks if not resolved referral to Dermatolog y [id number] Roman Escobar DPM [facility] [address] [facility] 4 [place] [address] 07/10/2024 11:54:59 07/10/2024 14:48:08 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 nails debrided without incident Pain in toe 062313955 M7 9.674 M79.030 [id number] MD MARLENY [facility] [address] [place] [address] 07/18/2024 11:18:53 07/18/2024 13:36:32 Prostate nodule 4671828778 08441 N40.2 [id number] MD MARLENY Grajeda_[facility] [address] [address] 09/13/2024 09:57:41 09/13/2024 13:34:36 Obstructive sleep apnea syndrome 64862753 G47.33 Iron deficiency 92959337 E61.1 Vitamin E deficiency 541 69593 E56.0 [id number] Roman Escobar DPM [facility] [address] [facility], [facility] [address] [place] [address] 10/09/2024 11:17:46 10/22/2024 09:29:53 Dystrophia unguium 84062375 L60.3 nails debrided without incident Pain in toe 725432833 M7 9.674 M79.675 toes due to elongated nails [id number] Shahbaz Hendrix MD S_[facility] [address] [address] 10/19/2024 16:03:11 10/22/2024 09:39:27 [id number] Shahbaz Hendrix MD S_[facility] [address] [place] [address] 11/02/2024 13:55:53 11/02/2024 14:26:25 Prostate nodule 7077630484 31017 N40.2 Prostate s pecific antigen above reference range 197297069 R97.20 Primary adenocarcinoma of prostate 2614453011 C61 [id number] Andres Foreman MD [facility] Pul[facility] [address] [place] [address] 11/13/2024 09:55:52 11/13/2024 13:47:55 Obstructive sleep apnea syndrome 34457691 G47.33 Iron deficiency 29959746 E61.1 Vitamin E deficiency 541 29097 E56.0 [id number] Yarelis bryan MD S_[facility] Internal Med [facility] [address] [address] 11/13/2024 09:58:01 11/13/2024 11:30:12 Peripheral vascular disease 146981076 I73.9 Dr Grewal [facility] 05/04/2024 , f/u in 6 [facility]Se[facility] be on xarelto lifelong as per [facility] Onychomyco sis of toenails 562288095 B35.1 In grown toenails, dave big toesDr Shawn 05/02/2024 , last apt 10/09/2024 , next 01/08/2025 Hyperlipidemia 12715071 E78.5 On atorvastat in 40mg dailyGet labs Vitamin D deficiency 347 77945 E55.9 Serum suzie min B12 below reference range 923796817 R79.89 Screening - NAD 19555509 3 Z13.9 C-scope: Get this Get yearly flu shotGet Tdap if not doneUTD on PCV #20 07/28/2023 Get shingrix vaccineCan do COVID 19 vaccine and also RSV RTC in 4 months, do labs, ER if worse Screening for malignant neoplasm of colon 510156276 Z12.11 Obstructiv e sleep apnea syndrome 31881322 G47.33 Sleep study 02/22/[address] Toledo neurologis [facility] Foreman seen 11/13/2024 , next apt on 02/12/2025 Deep venou s thrombosis of lower extremity 041911057 I82.409 L leg DVT as per his historyDoe s have venous stasis skin changes and also pitting edema but dave LETreated in the ER for L LE cellulitis On xarelto Dr Plummer [facility], is to get ECHO on 12/14/2024 and a sleep monitor on 11/16/2024 and f/u Dr Plummer 02/01/2025 Cataract 414366791 H26.9 L eye doneNeeds R eye Liver enzy mes level above reference range 511294704 R74.8 US liver 09/05/2023 : Hepatic steatosisN eeds to see GI Ankle pain 647647554 M25 .579 Dr Abdi 11/24/2023 , 12/05/2023 States that he is doing much better, and now is able to walk up and down stairs Multiple o pen wounds of lower leg 966780571 S81.801A Sees Dr Cantor eds to see wound clinicStar t on augmentinE R if worse Malignant tumor of prostate 770255594 C61 Addendum: 11/06/2024 :Bx notedWill refer to Dr Vera [id number] Roman Escobar DPM [facility] [address] [place] [address] 01/08/2025 11:20:55 01/08/2025 16:09:10 Dystrophia unguium 86635405 L60.3 nails debrided without incident Unable to cut own toenails 378289600 Z74.1 secondary to obesity Health Concerns Section Related Observation LastModified by Organization Detai ls LastModified Time None Recorded Concern Status LastModified by Organization Details LastModified Time None Recorded Advance Directives Directive N: Payers Encounter Date Sequence Insurance Name Policy Number Policy Mosquera Covered Member ID Mosquera Member ID Guarantor Name 10/19/2024 1 [facility] (MEDICARE REPLACEMENT/A DVANTAGE - HMO) [id number] Kendall Monroe [id number] Kendall Monroe 11/02/2024 1 [facility] (MEDICARE REPLACEMENT/A DVANTAGE - HMO) [id number] Kendall Monroe [id number] Kendall Monroe 11/13/2024 1 [facility] (MEDICARE REPLACEMENT/A DVANTAGE - HMO) [id number] Kendall Monroe [id number] Kendall Monroe 11/13/2024 1 [facility] (MEDICARE REPLACEMENT/A DVANTAGE - HMO) [id number] Kendall Monroe [id number] Kendall Monroe 01/08/2025 1 [employer] (MEDICARE REPLACEMENT/A DVANTAGE - PPO) Kendall Monroe [id number] Kendall Monroe Notes Date Note Type Note Provider Name and Address Organization Details Recorded Time 11/02/2024 text/html this patient was found to have a prostate nodule and underwent ultrasound with biopsies and on the right side he had 3/8 cores that were positive for Syl score 4+4=8. He has several comorbidities. Shahbaz Hendrix MD [address], [place], [address], [facility] [employer] 11/02/2024 14:45:12 11/13/2024 text/html OV 07/28/2023:He re [...] stairs OV 04/26/2024: Here s/p ER at [facility] for LE swelling and edema, today [...] is doing well today Yarelis Martinez MD [address] [place] [address], [phone], [facility] [employer] 11/13/2024 11:25:52 11/13/2024 text/html Primary care/Ref erring [...] study on 03/17/16, AHI = 37.During the [facility] titration sleep study on 10/11/21, sleep onset = 5.5 minutes, REM onset = 53.5 minutes, ResMed medium AirFit F30i full face mask @ 12 cmH2O was applied, PLMI = 26. During the [facility] titration sleep study on 02/22/23, sleep [...] chance of dozing. Andres Foreman MD [address] [place] [address], [place], [address], [employer] 11/15/2024 14:53:08 01/08/2025 text/html . Patient is a 64-year-old male who returns the office for routine foot care. Patient denies any other complaints. Roman Escobar DPM [address] [facility] [address], [place], [address], [employer] [facility] G[facility] 01/08/2025 14:41:48
--- OUTSIDE RECORDS SUMMARY | 2025-01-16 00:07 | XMS_ITS | Continuity of Care Document ---
Author Organization [facility] Address [address] [place] [address] Phone Care Team Providers Care Manager Culinary Name Role Phone Quiles OD, Beny Unavailable Unavailable Advance Directives Directive Yes / No Effective Date File Name No Information Encounters Encounter Description Practice Location Reason(s) For Visit Diagnoses Date Provider Providers Copied on Encounter [facility], [address], [place], [place], [id number], [place] tel:[phone] [facility] [place] No Information 2-200 3 Quiles OD Beny. [address] [place] , [address], [place], [address], [place]. tel:[phone] Family History Family Member Type Diagnosis Age At Onset No Information Payers Payer name Insurance type Covered alliance party ID Authoriza tion(s) No Information Social History [...]
--- OUTSIDE RECORDS SUMMARY | 2025-01-16 00:07 | XMS_ITS | Clinical Summary ---
Author Organization [facility] B Address [address] [place] [phone] Care Team Providers Care Plywood Layup Line Core Feeder Name Role Phone Chito Cornejo MD Primary [...] Department Care Team Description 10/23/2024 9:43 PM CASE SPECIALIST - 10/24/2024 1:59 AM CASE SPECIALIST Emergency [facility] Emergency Department 1 [place] [address] Joleen Camejo MD Rectal bleeding (Primary Dx) [...] on file Legal Sex Male 1:17 AM CASE SPECIALIST Gender Identity Not on file Sexual Orientation Not on file Obstetrics History Last Filed Vital Signs Vital Sign Reading Time Taken Comments Blood Pressure 137/85 10/24/2024 1:00 AM CASE SPECIALIST Pulse 62 10/24/2024 1:50 AM CASE SPECIALIST Temperature 36.7 C (98 F) 10/23/2024 7:43 PM CASE SPECIALIST Respiratory Rate 18 10/23/2024 7:45 PM CASE SPECIALIST Oxygen Saturation 92% 10/24/2024 1:50 AM CASE SPECIALIST Inhaled Oxygen Concentration - - Weight 127.5 kg (281 lb) 10/23/2024 7:43 PM CASE SPECIALIST Height 177.8 cm (5' 10 ) 10/23/2024 7:43 PM CASE SPECIALIST Body Mass Index 40.32 10/23/2024 7:43 PM CASE SPECIALIST Plan of Treatment Health Maintenance Due Date [...] HEMOGLOBIN AND HEMATOCRIT STAT 10/24/2024 12:58 AM CASE SPECIALIST B ABO / RH CONFIRMATION TESTING STAT 10/24/2024 12:58 AM CASE SPECIALIST EGFR STAT 10/23/2024 9:59 PM CASE SPECIALIST DIFFERENTIAL AUTO STAT 10/23/2024 9:5 9 PM CASE SPECIALIST ANTIBODY SCREEN STAT 10/23/2024 9:59 PM CASE SPECIALIST ABO/RH STAT 10/23/2024 9:59 PM CASE SPECIALIST TYPE AND SCREEN STAT 10/23/2024 9:59 PM CASE SPECIALIST PROTIME-INR STAT 10/23/2024 9:59 PM CASE SPECIALIST COMPREHENSIVE METABOLIC PANEL STAT 10/23/2024 9:59 PM CASE SPECIALIST CBC WITH AUTO DIFFERENTIAL STAT 10/23/2024 9:59 PM CASE SPECIALIST SERUM HEPATITIS PANEL Routine 05/24/2015 6:53 AM CDT from Last 3 Months or Most Recently Relevant to Health Maintenance Results * ABO / Rh Confirmation Testing (10/24/2024 12:58 AM CASE SPECIALIST) ABO/Rh Confirmation B Positive [facility] Blood 10/24/2024 12:5 8 AM CASE SPECIALIST 10/24/2024 1:02 AM CASE SPECIALIST Mora BANKS LAB BLOOD ORDERABLES Blanca l Result [facility] [address] [place] [address] [place] [address] [facility] * Hemoglobin and hematocrit (10/24/2024 12:58 AM CASE SPECIALIST) Hgb 13.5 13.0 - 17.5 g/dL Hct 40.1 38.9 - 50.3 % [facility] Blood 10/24/2024 12:5 8 AM CASE SPECIALIST 10/24/2024 1:02 AM CASE SPECIALIST Joleen Camejo MD LAB BLOOD ORDERABLES Final Resul t [facility] ([place]) [address] [place] [address] [place] [address] * eGFR (10/23/2024 9:59 PM CASE SPECIALIST) eGFR >90 >=60 mL/min/1. 73 m2 Comment: [...] last reviewed 2021. Blood 10/23/2024 9:59 PM CASE SPECIALIST 10/23/2024 10:01 PM CASE SPECIALIST Mora BANKS LAB BLOOD ORDERABLES Blanca schultz Result [facility] ([place] 1 [facility] Department of Laboratories [place], [place] [id number] * Differential, auto (10/23/2024 9:59 PM CASE SPECIALIST) Neutrophil abs 5.2 1.5 - 6.5 K/cumm Imm gran abs 0.1 0.0 - 0.1 K/cumm [facility] ([facility]) Lymphocyte abs 2.6 0.8 - 3.3 K/cumm [facility] ([facility]) Monocyte abs 0.8 0.2 - 0.8 K/cumm [facility] ([place]) Eosinophil abs 0.3 0.0 - 0.5 K/cumm [facility] ([place]) Basophil abs 0.1 0.0 - 0.1 K/cumm [...] revised on 2018. Blood 10/23/2024 9:59 PM CASE SPECIALIST 10/23/2024 10:01 PM CASE SPECIALIST Mora BANKS LAB BLOOD ORDERABLES Blanca l Result Performing Organization Address City/[facility] Co de Phone Number [facility] ([place]) 1 [facility] Department [place] [address] * CBC with auto differential (10/23/2024 9:59 PM CASE SPECIALIST) WBC 9.0 3.8 - 9.9 K/cumm Hgb [...] [facility]) Blood 10/23/2024 9:59 PM CASE SPECIALIST 10/23/2024 10:01 PM CASE SPECIALIST Mora BANKS LAB BLOOD ORDERABLES Blanca l Result Performing Organization Address City/[facility] Co de Phone Number [facility] ([place]) 1 [facility] [place] [address] * ABO/Rh (10/23/2024 9:59 PM CASE SPECIALIST) ABO/Rh B Positive Blood 10/23/2024 9:59 PM CASE SPECIALIST 10/23/2024 10:01 PM CASE SPECIALIST Narrative [facility] ([place]) - 10/23/2024 11:41 PM CASE SPECIALIST Has the patient had Daratumumab or Isatuximab in the past 6 months?->Unknown Mora BANKS LAB BLOOD BANK TEST ORDER BRET Final Result Performing Organization Address [facility] Co de Phone Number [facility] ([place] 1 [facility] [place] [address] * (ABNORMAL) Protime-INR (10/23/2024 9:59 PM CASE SPECIALIST) Pathologist [facility] PT 14.4(H) 9.7 - 13.0 sec [facility] ([place] INR 1.33(H) 0.90 - 1.20 [facility] ([place] [place]) Comment: Interpretive data Oral anticoagulant therapeutic ranges: Venous thromboembolism prophylaxis or treatment: 2.0-3.0 CARDIOLOGY Standard range: 2.0-3.0 High-intensity range: 2.5-3.5 Refer to indication-specific guidelines for appropriate target ranges for prosthetic heart valve replacement. Current interpretive data was last revised on 2019. Blood 10/23/2024 9:59 PM CASE SPECIALIST 10/23/2024 10:01 PM CASE SPECIALIST Mora BANKS LAB BLOOD ORDERABLES Blanca l Result Performing Organization Address City/[facility] Co de Phone Number [facility] ([place] 1 [facility] [place] [address] * Antibody screen (10/23/2024 9:59 PM CASE SPECIALIST) [place], indirect, Gel Interpretation Negative ABSC Blood 10/23/2024 9:59 PM CASE SPECIALIST 10/23/2024 10:01 PM CASE SPECIALIST Narrative [facility] ([facility] - 10/23/2024 11:41 PM CASE SPECIALIST Has the patient had Daratumumab or Isatuximab in the past 6 months?->Unknown Mora BANKS LAB BLOOD BANK TEST ORDER BRET Final Result [facility] ([facility] 1 [facility] Department [place] [address] * (ABNORMAL) Comprehensive metabolic panel (10/23/2024 9:59 PM CASE SPECIALIST) Sodium 138 135 - 145 mmol/L Potassium, pl 3.7 3.3 - 4.9 mmol/L [facility] Chloride 104 97 - 110 mmol/L [facility] CO2 23 22 - 32 mmol/L [facility]) Anion gap 11 2 - 15 mmol/L [facility] BUN 16 6 - 25 mg/dL [facility] Creatinine 0.81 0.80 - [...] [facility] Blood 10/23/2024 9:59 PM CASE SPECIALIST 10/23/2024 10:01 PM CASE SPECIALIST Mora BANKS LAB BLOOD ORDERABLES Blanca l Result [facility] ([place] 1 [facility] Department [place] [address] * Serum Hepatitis panel (05/24/2015 6:53 AM CDT) Pathologist [facility] HAV ab, IgM NON-REACTI VE NON-REACTI VE HISTORICAL RESULTS HBV surface ag NON-REACTI VE NON-REACTI VE HISTORICAL RESULTS HBV core ab, IgM NON-REACTI VE NON-REACTI VE HISTORICAL RESULTS HCV ab NON-REACTI VE NON-REACTI VE HISTORICAL RESULTS Hepatitis signal to cutoff ratio 0.05 <1.00 HISTORICAL RESULTS Serum 05/24/2015 6:53 AM CDT Narrative HISTORICAL RESULTS - 05/26/2015 10:00 AM CDT Test performed at [facility] [address] [place] [address] Director: KARLEY ADORNO DO,MPH Historical Provider LAB BLOOD ORDERABLES Blanca l Result HISTORICAL RESULTS from Last 3 Months or Most Recently Relevant to Health Maintenance Insurance [facility] [place] [facility] MEDICARE ADVANTAGE Care Teams Plywood Layup Line Core Feeder Relationship Specialty Start Date End Date Chito Cornejo MD PCP - General 04/11/18
--- OUTSIDE RECORDS SUMMARY | 2025-01-16 00:07 | XMS_ITS | CONTINUITY OF CARE DOCUMENT ---
Author Name velasquez eng Address Unknown Organization [facility] Address [address] [place] [address] [address] [place] [address] Phone [phone] Care Team Providers Care Carpentry Professional Name Role Phone Elian WARD, Nash Lawler Unavailable [phone] TRUE ESCAMILLA MD Unavailable TRUE ESCAMILLA MD Unavailable PROBLEMS Condition Status Date Provider Notes Cardiology examination active Nash regan MD DVT active Nash Plummer MD HTN essential active Nash Plummer MD Sleep apnea active Nash Plummer MD Abnormal electrocardiogram active Nash Plummer MD Ectopic Arrhythmia active Nash Plummer MD Prediabetes active Brittnee Thakkar NP ENCOUNTERS Date Type Provider Location Encounter Diag nosis - In-person encounter Office Visit Nash Plummer MD [facility] - In-person encounter Office Visit Mima Grewal MD [facility] - In-person encounter Office Visit Nash Plummer MD [facility] - In-person encounter Office Visit Nash Plummer MD [facility] Prediabetes - In-person encounter Office Visit Nash Plummer MD [facility] Cardiology examinationDVTHTN essentialSleep apneaAbnormal electrocardiogramEctopic Arrhythmia VITAL SIGNS Date Observation Value Provider Body Mass Index (Ratio) 40.03 kg/m2 Lebron nichols Sunil blood pressure, diastolic 88 mm[Hg] Tania cleveland [facility] blood pressure, systolic 150 mm[Hg] [facility] in [facility] oxygen saturation, oximetry 94 % [facility] respiratory rate E&M 12 /min [facility] pulse rate 58 /min [facility] weight E&M 279 [lb_av] [facility] blood pressure, cuff size regular cristofer [facility] height E&M 70 [in_i] [facility] Body Mass Index (Ratio) 40.46 kg/m2 [...] Mass Index (Ratio) 39.74 kg/m2 Iraj dasilva [facility] blood pressure, diastolic -1 mm[Hg] Li [employer] [...] /min Bonnie dialloer weight E&M 267 [lb_av] Bonnie dialloer height E&M 70 [in_i] Bonnie Paulson [...] Joyreri MORRO drug use no Verah Bonareri FIELD HAULER alcohol use yes Verah Bonareri FIELD HAULER smoking status Former smoker Verah Bonare ri FIELD HAULER personal history of marijuana use no Verah Bonareri FIELD HAULER drug use no Verah Bonareri FIELD HAULER alcohol use yes Verah Bonareri FIELD HAULER smoking status Former smoker Verjoanne Bonare ri FIELD HAULER social history reviewed E&M revi ewed - no changes required Nash Plummer MD INSURANCE PROVIDERS Payer name Policy type / Coverage type Patric red libertarian ID AARP MEDICARE ADVANTAGE [facility] [id number] ADVANCE DIRECTIVES Name Date DISCUSSED - NO DECISION MADE TREATMENT PLAN Date Name Performer [id number],S,24 hr tele Sa dwayne Plummer MD [id number],C,c urrently on Xaralto needs to remain on [...] venous and artierial studies Nash Plummer MD [id number],S,C heck BP at home before starting meds D iscussion of benefits for remote patient monitoring took place. Patient gives consent for remote monitoring of physiologic parameters including, but not limited to, weight, blood pressure, pulse oximetry, respiratory flow rate. BP today: 120/80 Nash Plummer MD [id number],S,S hows inferior DE age undetermined. check stress test with Lexiscan. will also obtain 24 hr telemonitor because he seems to have extra heart beats on exam. Nash Plummer MD [id number],S,Needs cardiac AGRAWAL with abnormal EKG Nash Plummer [...] Cardiology: O rders: 9 9214 MOD 30-39min ([id number]) C omplex e/m visit add on (G2211) [...] 120/80 Nash Plummer MD Cardiology:Shows inf erior DE age undetermined. check stress test with Lexiscan. [...]
--- OUTSIDE RECORDS SUMMARY | 2025-01-16 00:07 | XMS_ITS | Clinical Summary ---
Author Organization [facility] Address [address] [place] [address] Care Team Providers Care Derrick Barge Operator Name Role Phone Unknown, Provider Primary Care Provider Unavaila ble Source Comments [facility],non-owned Affiliates and Associated Physician Practices is amultiple site organization consisting of ambulatory clinics and hospital sitesin [place], [place], [place] and [place]. This disclosure is being madepursuant to the Care Everywhere program and may not contain all information available regarding this patient. Last updated 18.[facility] Allergies No known active allergies Medications * [...] on file Legal Sex Male 5:49 AM LUMP ROOM SUPERVISOR Gender Identity Not on file Sexual [...] Info) Description 03/18/2025 11:00 AM CDT Appointment [facility] [address] [place] [id number] Gisela Roper, SEO COORDINATOR-SUPERVISOR DENTAL LABORATORY [address] [place] [address] [address] [place] [address] 03/18/2025 12:30 PM CDT Office Visit [facility] [address] [place] [address], [place] [id number] Gisela Roper, SEO COORDINATOR-SUPERVISOR D[facility]AL LABORATORY [address] [place] [address] [address] [place] [address] Health Maintenance Due Date Last Done Comments [...] 7 - 26 mg/dL 12/23/2023 12:06 PM [facility] Creatinine 0.99 0.71 - 1.16 mg/dL 12/23/2023 12:06 PM [facility] Sodium 139 136 - 145 mmol/L 12/23/2023 12:06 PM [facility] Potassium 3.6 3.5 - 4.5 mmol/L 12/23/2023 12:06 PM [facility] Chloride 107 98 - 107 mmol/L 12/23/2023 12:06 PM [facility] CO2 24 22 - 29 mmol/L 12/23/2023 12:06 PM [facility] Glucose 68(L) 70 - 115 mg/dL 12/23/2023 12:06 PM [facility] Calcium 8.8 8.4 - 10.2 mg/dL 12/23/2023 12:06 PM [facility] Protein Total 7.4 6.0 - 8.3 g/dL 12/23/2023 12:06 PM [facility] Albumin 3.5 3.4 - 5.0 g/dL 12/23/2023 12:06 PM [facility] Bilirubin Total 1.0 0.2 - 1.2 mg/dL 12/23/2023 12:06 PM [facility] Alkaline Phosphatase 66 40 - 150 U/L 12/23/2023 12:06 PM [facility] ALT 43 5 - 55 U/L 12/23/2023 12:06 PM [facility] AST 29 5 - 34 U/L 12/23/2023 12:06 PM [facility] Anion Gap 8 6 - 16 12/23/2023 12:06 PM [facility] BUN/Creatinine Ratio 16 7 - 23 12/23/2023 12:06 PM [facility] Osmolality Calculated 287 275 - 295 mOsm/kg 12/23/2023 12:06 PM [facility] Albumin/Globulin Ratio 0.9(L) 1.1 - 2.3 12/23/2023 12:06 PM [facility] eGFR by CKD-EPI 85(L) >=90 mL/min/1.7 3 m2 12/23/2023 12:06 PM [facility] Blood BLOOD SPECIMEN / Unknown Lab Venipuncture / Unknown 12/23/2023 11:22 AM T 12/23/2023 11:38 AM [facility] [place] Gisela Roper SEO COORDINATOR-SUPERVISOR DENTAL LABORATORY LAB - CHEMISTRY ORD ERABLES Final Result [facility] [address] [place] [address], [facility] [phone] * HEPATITIS C ANTIBODY (12/23/2023 11:22 AM CDT) Hepatitis C Antibody Non-react yoana Non-reac tive 12/23/2023 12:25 PM CDT [facility] Comment:Hepatitis C Antibody screen indicates no serologic [...] CDT 12/23/2023 11:34 AM CDT Gisela Roper SEO COORDINATOR-SUPERVISOR DENTAL LABORATORY LAB - CHEMISTRY ORD ERABLES Final Result [facility] [address] [place] [address], [facility] [phone] from Last 3 Months or Most Recently Relevant to Health Maintenance Insurance [employer] MANAGED MEDICARE ADV Care Teams Derrick Barge Operator Relationship Specialty Start Date End Date Unknown, Provider PCP - General 12/23/23
--- OUTSIDE RECORDS SUMMARY | 2025-01-16 00:07 | XMS_ITS | Continuity of Care Document ---
Author Organization [facility] Address [id number] [place] [address] [address] [place] [address] Phone Care Team Providers Care Wall Mirror Department Supervisor Name Role Phone Sandro Newman MD Unavailable Unavailable Procedures Procedure Date OFFICE/OUTPATIENT VISIT, [facility] Advance Directives Directive Yes / No Effective Date File Name No Information Encounters Encounter Description Practice Location Reason(s) For Visit Diagnoses Date Provider Providers Copied on Encounter OFFICE/OUTPAT IENT VISIT, [facility], [address] [place] [address], [place], [place], [id number], tel:[phone] [facility] [place] No Information 7 Paty Jo. [address] [place] [address], [address], [facility], . tel:[phone] Referring Provider: Sandro Spring, [address] [place] [address], [place], [facility]. tel:[phone] Family History Family Member Type Diagnosis Age At Onset No Information Payers Payer name Insurance type Covered republican ID Authoriza emory(s) [facility](Not Providers) CI [id number] Social History Type Description Quantity Date Captured [...]
--- OUTSIDE RECORDS SUMMARY | 2025-01-16 00:07 | XMS_ITS | Clinical Summary ---
Author Organization [facility] Address [address] [place] [address] Phone Care Team Providers Care Kettleman Name Role Phone Provider, None Primary Care Provider Unavailabl e Allergies No known active allergies Medications amphetamine-dex troamphetamine (ADDERALL) 30 MG Tablet TK 1 T PO D 0 8 Active Calcium Carbonate-Vitam in D (Oyster Shell Calcium/D) 500-200 MG-UNIT Tablet Take 1 Tablet by mouth. Active naloxone HCl (Narcan) 4 MG/0.1ML Liquid 1 [place] by Nasal route as needed for Opioid [...] Insurance [facility] Care Teams Kettleman Relationship Specialty Start Date End Date Provider, None [place] PCP - General 05/01/23
--- OUTSIDE RECORDS SUMMARY | 2025-01-16 00:07 | XMS_ITS | Clinical Summary ---
Author Organization [employer] [facility] Address [address] [place] [address] Care Team Providers Care Bean Sprout Laborer Name Role Phone Unavailable Primary Care Provider [...] 12/03/2024 4:30 PM CDT Telephone Check Up [facility] - [place] [address] [place] [address] Davy Vera MD 11/27/2024 Orders Only [facility] - [place] [address] [place] [address] Davy Vera MD 11/21/2024 Orders Only [facility]cology and Hematology - [place] [address] [place] [address] Davy Vera MD 11/21/2024 Abstract [facility] Oncology and Hematology - [place] [address] [place] [address] Davy Vera MD 11/16/2024 Orders Only [facility] Oncology and Hematology [facility] [address] [place] [address] aDvy Vera MD 11/15/2024 3:00 PM RESIDENTIAL INSURANCE INSPECTOR Office Visit [facility] H[facility] [address] [place] [address] Davy Vera MD Prostate cancer (CMS/HCC) (Primary [...] on file Legal Sex Male 10:08 AM RESIDENTIAL INSURANCE INSPECTOR Gender Identity Not on file Sexual Orientation Not on file Last Filed Vital Signs Vital Sign Reading Time Taken Comments Blood Pressure 123/69 11/15/2024 3:12 PM RESIDENTIAL INSURANCE INSPECTOR Pulse 67 11/15/2024 3:12 PM RESIDENTIAL INSURANCE INSPECTOR Temperature 36.1 C (97 F) 11/15/2024 3:12 PM RESIDENTIAL INSURANCE INSPECTOR Respiratory Rate 15 11/15/2024 3:12 PM RESIDENTIAL INSURANCE INSPECTOR Oxygen Saturation 96% 11/15/2024 3:12 PM RESIDENTIAL INSURANCE INSPECTOR Inhaled Oxygen Concentration - - Weight 126.6 kg (279 lb) 11/15/2024 3:12 PM RESIDENTIAL INSURANCE INSPECTOR Height 177.8 cm (5' 10 ) 11/15/2024 3:12 PM RESIDENTIAL INSURANCE INSPECTOR Body Mass Index 40.03 11/15/2024 3:12 PM RESIDENTIAL INSURANCE INSPECTOR Plan of Treatment Health Maintenance Due Date [...] Date/Time Associated Diagnosis Comments PET TUMOR GA68 ILLUCCIX PSMA IMG W CT SKB MD Routine 11/26/2024 10:33 AM RESIDENTIAL INSURANCE INSPECTOR TESTOSTERONE FREE Routine 11/15/2024 4:2 6 PM RESIDENTIAL INSURANCE INSPECTOR PSA Routine 11/15/2024 11:42 AM RESIDENTIAL INSURANCE INSPECTOR from Last 3 Months Results * PET TUMOR GA68 ILLUCIX PSMA IMG W CT GABY MD (11/26/2024 10:33 AM RESIDENTIAL INSURANCE INSPECTOR) Anatomical Region Laterality Modality Positron Emissio n Tomography (PET) Davy Vera MD PE ORDERABLES Final Result * TESTOSTERONE FREE (11/15/2024 4:26 PM RESIDENTIAL INSURANCE INSPECTOR) Blood Davy Vera MD CHEMISTRY ORDERABLES Final Resu lt * PSA (11/15/2024 11:42 AM RESIDENTIAL INSURANCE INSPECTOR) Blood Davy Vera MD CHEMISTRY ORDERABLES Final Resu lt from Last 3 Months Insurance [employer] [facility]
--- OUTSIDE RECORDS SUMMARY | 2025-01-16 00:07 | XMS_ITS | Referral Summary ---
Author Organization [facility] Address [address] [place] [address] Care Team Providers Care Commercial Lines Sales Executive Name Role Phone Chito Cornejo MD Primary Care Provider + Encounters Date Type Department Care Team Description 10/23/2024 9:43 PM BATCH OPERATOR - 10/24/2024 1:59 AM BATCH OPERATOR Emergency [facility] Emergency Department [address] [place] [address] Joleen Camejo MD Rectal bleeding (Primary Dx) [...] on file Legal Sex Male 1:17 AM BATCH OPERATOR Gender Identity Not on file Sexual Orientation Not on file Last Filed Vital Signs Vital Sign Reading Time Taken Comments Blood Pressure 137/85 10/24/2024 1:00 AM BATCH OPERATOR Pulse 62 10/24/2024 1:50 AM BATCH OPERATOR Temperature 36.7 C (98 F) 10/23/2024 7:43 PM BATCH OPERATOR Respiratory Rate 18 10/23/2024 7:45 PM BATCH OPERATOR Oxygen Saturation 92% 10/24/2024 1:50 AM BATCH OPERATOR Inhaled Oxygen Concentration - - Weight 127.5 kg (281 lb) 10/23/2024 7:43 PM BATCH OPERATOR Height 177.8 cm (5' 10 ) 10/23/2024 7:43 PM BATCH OPERATOR Body Mass Index 40.32 10/23/2024 7:43 PM BATCH OPERATOR Plan of Treatment Not on file Procedures Procedure Name Priority Date/Time Associated Diagnosis Comments HEMOGLOBIN AND HEMATOCRIT STAT 10/24/2024 12:58 AM BATCH OPERATOR B ABO / RH CONFIRMATION TESTING STAT 10/24/2024 12:58 AM BATCH OPERATOR EGFR STAT 10/23/2024 9:59 PM BATCH OPERATOR DIFFERENTIAL AUTO STAT 10/23/2024 9:5 9 PM BATCH OPERATOR ANTIBODY SCREEN STAT 10/23/2024 9:59 PM BATCH OPERATOR ABO/RH STAT 10/23/2024 9:59 PM BATCH OPERATOR TYPE AND SCREEN STAT 10/23/2024 9:59 PM BATCH OPERATOR PROTIME-INR STAT 10/23/2024 9:59 PM BATCH OPERATOR COMPREHENSIVE METABOLIC PANEL STAT 10/23/2024 9:59 PM BATCH OPERATOR CBC WITH AUTO DIFFERENTIAL STAT 10/23/2024 9:59 PM BATCH OPERATOR SERUM HEPATITIS PANEL Routine 05/24/2015 6:53 AM CDT from Last 3 Months or Most Recently Relevant to Health Maintenance Results * ABO / Rh Confirmation Testing (10/24/2024 12:58 AM BATCH OPERATOR) Pathologist [facility] ABO/Rh Confirmation B Positive [facility] Blood 10/24/2024 12:5 8 AM BATCH OPERATOR 10/24/2024 1:02 AM BATCH OPERATOR us Mora BANKS LAB BLOOD ORDERABLES Blanca l Result [facility] ([place]) [address] [place] [address] [place] [address] [facility] * Hemoglobin and hematocrit (10/24/2024 12:58 AM BATCH OPERATOR) [facility] Hgb 13.5 13.0 - 17.5 g/dL Hct 40.1 38.9 - 50.3 % [facility]) Blood 10/24/2024 12:5 8 AM BATCH OPERATOR 10/24/2024 1:02 AM BATCH OPERATOR us Joleen Camejo MD LAB BLOOD ORDERABLES Final Resul t [facility] ([place]) [address] [place] [address] [place] [employer] [place] [address] * eGFR (10/23/2024 9:59 PM BATCH OPERATOR) eGFR >90 >=60 mL/min/1. 73 m2 Comment: [...] last reviewed 2021. Blood 10/23/2024 9:59 PM BATCH OPERATOR 10/23/2024 10:01 PM BATCH OPERATOR us Mora BANKS LAB BLOOD ORDERABLES Blanca schultz Result [facility] ([place]) [address] [facility] [place] [address] * Differential, auto (10/23/2024 9:59 PM BATCH OPERATOR) Pathologist [facility] Neutrophil abs 5.2 1.5 - 6.5 K/cumm Imm gran abs 0.1 0.0 - 0.1 K/cumm [facility] ([place]) Lymphocyte abs 2.6 0.8 - 3.3 K/cumm [facility] ([place]) Monocyte abs 0.8 0.2 - 0.8 K/cumm [facility] ([place]) Eosinophil abs 0.3 0.0 - 0.5 K/cumm [facility] ([place]) Basophil abs 0.1 0.0 - 0.1 K/cumm [facility] ([place]) Neutrophil pct 57.6 % [facility] ([place]) Comment: Interpretive Data Percent cell count reference [...] revised on 2018. Blood 10/23/2024 9:59 PM BATCH OPERATOR 10/23/2024 10:01 PM BATCH OPERATOR us Mora BANKS LAB BLOOD ORDERABLES Blanca l Result [facility] ([place]) [address] [facility] [place] [address] * CBC with auto differential (10/23/2024 9:59 PM BATCH OPERATOR) WBC 9.0 3.8 - 9.9 K/cumm Hgb 14.2 13.0 - 17.5 g/dL [facility] ([place]) Hct 42.9 38.9 - 50.3 % [facility] ([place]) Plt 207 150 - 400 K/cumm [facility] ([place]) MPV 9.5 9.1 - 12.3 fL [facility] ([place] RBC 5.20 4.30 - 5.80 M/cumm [facility] ([place]) MCV 82.5 81.3 - 96.4 fL [facility] ([place] MCH 27.3 27.1 - 33.3 pg [facility] ([place] MCHC 33.1 32.3 - 35.7 g/dL [facility] ([place]) RDW CV 13.5 11.1 - 14.9 % [facility] ([place]) RDW SD 40.7 35.7 - 48.1 fL [facility] ([place] NRBC abs 0.00 0.00 - 0.01 K/cumm [facility] ([place] Blood 10/23/2024 9:59 PM BATCH OPERATOR 10/23/2024 10:01 PM BATCH OPERATOR Mora BANKS LAB BLOOD ORDERABLES Blanca l Result [facility] ([place]) [address] [facility] [place] [address] * ABO/Rh (10/23/2024 9:59 PM BATCH OPERATOR) [facility] ABO/Rh B Positive Blood 10/23/2024 9:59 PM BATCH OPERATOR 10/23/2024 10:01 PM BATCH OPERATOR Narrative [facility] ([place]) - 10/23/2024 11:41 PM BATCH OPERATOR Has the patient had Daratumumab or Isatuximab in the past 6 months?->Unknown Mora BANKS LAB BLOOD BANK TEST ORDER BRET Final Result [facility] ([place]) [address] [facility] General Blood [place] [employer] [place] [address] * (ABNORMAL) Protime-INR (10/23/2024 9:59 PM BATCH OPERATOR) PT 14.4(H) 9.7 - 13.0 sec [facility] ([place]) INR 1.33(H) 0.90 - 1.20 [facility] ([place]) Comment: Interpretive data Oral anticoagulant therapeutic ranges: Venous thromboembolism prophylaxis or treatment: 2.0-3.0 CARDIOLOGY Standard range: 2.0-3.0 High-intensity range: 2.5-3.5 Refer to indication-specific guidelines for appropriate target ranges for prosthetic heart valve replacement. Current interpretive data was last revised on 2019. Blood 10/23/2024 9:59 PM BATCH OPERATOR 10/23/2024 10:01 PM BATCH OPERATOR Mora BANKS LAB BLOOD ORDERABLES Blanca l Result Performing Organization Address City/[facility]/ZIP Co de Phone Number [facility] ([place]) [address] [facility] [place] [address] * Antibody screen (10/23/2024 9:59 PM BATCH OPERATOR) Pathologist [facility], indirect, Gel Interpretation Negative [facility] Blood 10/23/2024 9:59 PM BATCH OPERATOR 10/23/2024 10:01 PM BATCH OPERATOR Narrative [facility] ([place]) - 10/23/2024 11:41 PM BATCH OPERATOR Has the patient had Daratumumab or Isatuximab in the past 6 months?->Unknown Mora BANKS LAB BLOOD BANK TEST ORDER BRET Final Result [facility] ([place]) [address] [facility] [address] [place] [address] * (ABNORMAL) Comprehensive metabolic panel (10/23/2024 9:59 PM BATCH OPERATOR) [facility] Sodium 138 135 - 145 mmol/L Potassium, pl 3.7 3.3 - 4.9 mmol/L [facility] ([place]) Chloride 104 97 - 110 mmol/L [facility] ([place]) CO2 23 22 - 32 mmol/L [facility] ([place]) Anion gap 11 2 - 15 [...] 2022. Calcium 9.2 8.5 - 10.3 mg/dL [facility] Bilirubin, total 1.4(H) 0.1 - 1.2 mg/dL [facility] ([place]) Protein, pl 7.7 6.5 - 8.5 g/dL [facility] ([place]) Albumin 4.1 3.5 - 5.0 g/dL [facility] ([place]) Alk phos 63 40 - 130 Units/L [facility] ([place]) ALT 56(H) 7 - 55 Units/L [facility] ([place]) AST 31 10 - 50 Units/L [facility] ([place]) Blood 10/23/2024 9:59 PM BATCH OPERATOR 10/23/2024 10:01 PM BATCH OPERATOR us Mora BANKS LAB BLOOD ORDERABLES Blanca l Result [facility] ([place]) [address] [facility] [place] [address] * Serum Hepatitis panel (05/24/2015 6:53 AM [...] 05/26/2015 10:00 AM CDT Test performed at [facility] [address] [place] [address] Director: KARLEY ADORNO DO,MPH us Historical Provider LAB BLOOD ORDERABLES Blanca schultz Result HISTORICAL RESULTS from Last 3 Months or Most Recently Relevant to Health Maintenance Insurance [facility] MEDICARE ADVANTAGE Care Teams Commercial Lines Sales Executive Relationship Specialty Start Date End Date Chito Cornejo MD PCP - General 04/11/18
--- NOTE | 2025-01-16 06:27 | WPDHPUPDATE1 ---
History and Physical Update Update Date/Time: 01/16/25 06:27 History and Physical has been reviewed, including an updated exam of the patient. There are NO changes in the patient's condition. Risks, benefits, and alternatives have been discussed and questions answered. Patient agrees to proceed with procedure.
[2025-01-16] MEDS: LACTATED RINGERS 1,000 ML 30 ML IV CONT ×2 (06:50→11:23)
[2025-01-16 07:19] LABS: Prothrombin Time 13.6 Seconds (11.1-14.7)
[2025-01-16] MEDS: ceFAZolin 3 GM/D5W 100 ML 100 ML IVPB (07:35)
--- NOTE | 2025-01-16 11:22 | W.PM.PROC2 ---
Procedure Note - Detailed Date of Procedure 01/16/25 Pre-op Diagnosis Prostate cancer Post-op Diagnosis Same Procedure Performed Robotic-assisted radical prostatectomy, bilateral pelvic lymphadenectomy Surgeon Wilmar Ward MD Anesthesia General Description of Procedure The patient was brought to the operative suite, where he was prepped and draped in routine sterile fashion while in a dorsal lithotomy, deep Trendelenburg position. A supraumbilical 10 mm trocar was placed after insufflation of the abdomen with a Veress needle. Three robotic ports were then placed under direct vision. Two of these were placed in the right lower quadrant - 10 cm and 20 cm lateral to, and in line with, the umbilicus. A third robotic trocar was placed 10 cm to the left of the umbilicus, and 20 cm to the left of the umbilicus, a 12 mm standard laparoscopic trocar was placed to be used as an it administrative assistant port. Lastly, a 5 mm trocar was placed in the left upper quadrant midway between the umbilicus and the left robotic trocar. Attention was then turned to the prostatectomy. I opted for a posterior approach in this patient. An incision was made in the parietal peritoneum along the posterior bladder/posterior prostate about 2 cm above the reflection of the peritoneum over the anterior rectum. The seminal vesicles and vas deferens were immediately identified. Dissection is undertaken in a fashion so as to avoid electrocautery as much as possible, particularly near the tips of the seminal vesicles. Dissection was also carried out in the midline so as to avoid any encounters with the ureters. The vas deferens and the seminal vesicles were dissected in their entirety to the base of the prostate. The plane anterior to Denoviller's fascia, anterior to the rectum and posterior to the prostate was then developed. I then dropped the bladder by incising the anterior parietal peritoneum just lateral to the median umbilical ligaments bilaterally. The bladder was dropped from the anterior abdominal and pelvic wall. The endopelvic fascia was identified and incised bilaterally, allowing for dissection of the posterior-lateral aspect of the prostate. The puboprostatic ligaments were transected near their origin from the posterior pubic ramus. This posterior lateral dissection of the prostate is also undertaken in a fashion so as to avoid electrocautery as much as possible. The dorsal vein of the penis is then secured with an 0 -Vicryl ligature. Attention is then turned to the bladder neck. The anterior bladder neck is incised at the vesico-prostatic junction. The previously placed urethral catheter was drawn through the urethrotomy. A very small bladder neck was maintained throughout the remainder of this dissection. The posterior bladder neck was incised in a fashion so as to avoid any injury to the ureteral orifices. Again, the small aperture of the bladder neck was maintained. The previously dissected vas deferens and the seminal vesicles were brought through the posterior bladder neck incision. The lateral prostatic pedicles were then carefully dissected from the lateral aspect of the prostate bilaterally. The prostatic pedicles were secured with Weck clips and transected. The neurovascular bundles were carefully dissected from the posterior-lateral aspect of the prostate. The dorsal vein of the penis was incised with electrocautery. Using cold scissors, the urethra was incised. After withdrawing the previously placed urethral catheter, the posterior urethra was sharply incised, as was the rectalurethralis muscle. Attention was then turned to an extended bilateral pelvic lymphadenectomy. The limits of this dissection were similar bilaterally. Specifically, the limits were the bifurcation of the common iliac vein proximally, the Osito's ligament distally, the pevic floor posteriorly. the pelvic sidewall laterally and the anterior aspect to the external iliac artery laterally. This dissection was undertaken with care to avoid any injury to the obturator nerve. The prostate, seminal vesicles and pelvic nodes were then placed in a specimen bag. The pelvis was copiously irrigated with saline. Urethrovesical anastomosis was then undertaken using similar two 3-0 V-lock sutures across a 20-Mongolian urethral catheter. The catheter was irrigated, and there was found to be no evidence of an irrigant extravasation. I opted not to place a pelvic drain. The robot is undocked, and the trocars were removed. The specimen was removed through the supraumbilical incision. The anterior rectus fascia at that suprapubic site was closed with a looped 0-PDS. Subcutaneous tissue was irrigated. Skin incisions were closed with 4-0 Vicryl subcuticular. Blood loss throughout this was 200cc. The patient tolerated the procedure well, was taken to recovery room in good condition.
[2025-01-16] MEDS: fentaNYL CITRATE INJ (*CRX) 100 MCG/2 ML VIAL 25 MCG IV PUSH ×4 (12:15→12:50)
[2025-01-16] MEDS: LACTATED RINGERS 1,000 ML 125 ML IV CONT ×2 (14:56→23:00)
[2025-01-16] MEDS: ATORVASTATIN 40 MG TABLET PO (17:12)
[2025-01-16] MEDS: FERROUS SULFATE 325 MG TABLET DR BY MOUTH (17:12)
[2025-01-16] MEDS: KETOROLAC 15 MG/ML VIAL (*BKC) IV PUSH (19:54)
[2025-01-17 02:00] VITALS: PULSE 77; RESP 23; O2SAT 95
[2025-01-17 03:25] VITALS: BP 130/63; PULSE 65; RESP 16; TEMP 36.9; O2SAT 95
[2025-01-17 05:35] LABS: Hematocrit 38.4 % (42.0-52.0); Hemoglobin 12.3 g/dL (14.0-18.0)
[2025-01-17 05:58] LABS: Anion Gap 8 mmol/L (4-12); Blood Urea Nitrogen 16 mg/dL (9-20); Calcium 8.2 mg/dL (8.4-10.2); Carbon Dioxide 23 mmol/L (22-30); Chloride 106 mmol/L (98-107); Estimated CRCL calculation 99 ml/min; Estimated Glomerular Filt Rate > 60; Glucose 122 mg/dL (65-110); Potassium 4.1 mmol/L (3.4-5.0); Sodium 137 mmol/L (137-145)
[2025-01-17] MEDS: LACTATED RINGERS 1,000 ML 125 ML IV CONT (06:05)
--- NOTE | 2025-01-17 07:01 | WPDUROPN2 ---
Progress Note: A&P Assessment and Plan (1) Prostate cancer: Code(s): C61 - Malignant neoplasm of prostate Status: Acute Assessment and Plan: Patient doing well postop day 1 Increased diet and ambulation this morning Anticipate discharge this afternoon Subjective Subjective Date/Time Seen: 01/17/25 07:01 Interval history: Comfortable, slept well Review of Systems Cardiovascular: Cardiovascular: Denies chest pain, Denies lightheadedness, Denies palpitations and Denies dyspnea Respiratory: Respiratory: Denies dyspnea Gastrointestinal: Gastrointestinal: Denies diarrhea, Denies nausea and Denies vomiting Genitourinary: Genitourinary: Denies hematuria and Denies dysuria Endocrine: Endocrine: Denies palpitations Exam Const: General: no acute distress Resp: Effort & Inspection: normal respiratory effort GI: Inspection: non-distended GI Palp: No abdominal tenderness and No Guarding due to palpation present (GI) Auscultation: Hypoactive bowel sounds present Urinary Catheter: Urinary Catheter: patent and draining and urine clear Extrem: Right lower extremity: normal to inspection Left lower extremity: normal to inspection Objective Data Vital Signs Vital Signs: Vital Signs - 24 hr 01/16/25 11:23 01/16/25 11:35 01/16/25 11:50 Temperature 97.6 F Pulse Rate 76 74 77 Respiratory Rate 25 H 23 H 20 Blood Pressure 112/62 104/51 L 101/53 L Pulse Oximetry 93 94 94 Oxygen Delivery Simple Face Mask Simple Face Mask Simple Face Mask Oxygen Flow Rate 8 8 8 Fraction of Inspired Oxygen 01/16/25 12:05 01/16/25 12:20 01/16/25 12:35 Temperature Pulse Rate 74 84 73 Respiratory Rate 16 16 14 Blood Pressure 107/52 L 116/54 L 120/67 Pulse Oximetry 95 95 92 Oxygen Delivery Room Air Nasal Cannula Nasal Cannula Oxygen Flow Rate 3 3 Fraction of Inspired Oxygen 01/16/25 12:50 01/16/25 13:05 01/16/25 13:20 Temperature 97.5 F L Pulse Rate 74 72 71 Respiratory Rate 12 12 16 Blood Pressure 118/71 125/70 117/76 Pulse Oximetry 93 93 95 Oxygen Delivery Nasal Cannula Nasal Cannula Nasal Cannula Oxygen Flow Rate 3 3 3 Fraction of Inspired Oxygen 01/16/25 13:35 01/16/25 14:05 01/16/25 14:20 Temperature 97.6 F 97.6 F Pulse Rate 78 63 63 Respiratory Rate 16 17 17 Blood Pressure 125/74 126/53 L 116/56 L Pulse Oximetry 95 97 97 Oxygen Delivery Nasal Cannula Oxygen Flow Rate 3 Fraction of Inspired Oxygen 01/16/25 14:50 01/16/25 15:50 01/16/25 18:01 Temperature 97.6 F 97.6 F Pulse Rate 74 65 Respiratory Rate 17 19 Blood Pressure 120/71 126/59 L Pulse Oximetry 97 97 97 Oxygen Delivery Room Air Oxygen Flow Rate Fraction of Inspired Oxygen 01/16/25 19:35 01/16/25 19:58 01/16/25 20:49 Temperature 98.4 F Pulse Rate 80 80 Respiratory Rate 16 20 Blood Pressure 130/61 Pulse Oximetry 95 97 95 Oxygen Delivery Nasal Cannula Nasal Cannula Oxygen Flow Rate 2 2 Fraction of Inspired Oxygen 28 01/16/25 22:50 01/16/25 23:14 01/17/25 02:00 Temperature 98.0 F Pulse Rate 75 76 77 Respiratory Rate 22 H 16 23 H Blood Pressure 125/58 L Pulse Oximetry 94 96 95 Oxygen Delivery CPAP CPAP Oxygen Flow Rate Fraction of Inspired Oxygen 01/17/25 03:25 Temperature 98.4 F Pulse Rate 65 Respiratory Rate 16 Blood Pressure 130/63 Pulse Oximetry 95 Oxygen Delivery Oxygen Flow Rate Fraction of Inspired Oxygen Intake/Output Intake/Output: Intake & Output 01/14/25 01/15/25 01/16/25 01/17/25 23:59 23:59 23:59 23:59 Intake Total 2240 1135.4 Output Total 1960 700 Balance 280 435.4 Meds/Results Medications: Active Medications Generic Name Dose Route Start Last Admin Trade Name Freq PRN Reason Stop Dose Admin Atorvastatin Calcium 40 mg 01/16/25 18:00 01/16/25 17:12 Atorvastatin 40 Mg Tablet PO 40 mg QPM SWETA Administration Fentanyl Citrate 25 mcg 01/15/25 11:49 01/16/25 12:50 Fentanyl Citrate Inj (*Crx) 100 Mcg/2 Ml Vial IV PUSH 25 mcg Q2M PRN Administration Pain Ferrous Sulfate 325 mg 01/16/25 17:00 01/16/25 17:12 Ferrous Sulfate [address] BY MOUTH 325 mg BID@1200,1700 SWETA Administration Hyoscyamine 0.125 mg 01/16/25 13:50 Hyoscyamine Sulfate 0.125 Mg Tablet SUBLINGUAL Q4H PRN Bladder Spasm Lactated Ringer's 1,000 mls @ 30 mls/hr 01/15/25 11:50 01/16/25 14:13 Lr - Lactated Ringers Iv IV CONT Not Given .Q24H SWETA Lactated Ringer's 1,000 mls @ 30 mls/hr 01/15/25 11:50 01/16/25 14:14 Lr - Lactated Ringers Iv IV CONT Not Given .Q24H SWETA Lactated Ringer's 1,000 mls @ 125 mls/hr 01/16/25 13:50 01/17/25 06:05 Lr - Lactated Ringers Iv IV CONT 125 mls/hr .Q8H SWETA Administration Ketorolac Tromethamine 15 mg 01/16/25 13:50 01/16/25 19:54 Ketorolac 15 Mg/Ml Vial (*Bkc) IV PUSH 01/17/25 13:49 15 mg Q6H PRN Administration Pain Rated 4-6 Levofloxacin 500 mg 01/17/25 09:00 Levofloxacin 500 Mg Tablet PO DAILY [facility] Loratadine 10 mg 01/17/25 09:00 Loratadine 10 Mg Tablet PO DAILY [facility] Magnesium Oxide 400 mg 01/17/25 12:00 Magnesium Oxide 400 Mg Tablet PO DAILY@1200 [facility] Morphine Sulfate 1 mg 01/16/25 13:50 Morphine Sulfate (*Crx) 2 Mg/Ml Inj IV PUSH Q2H PRN Pain Rated 7-10 Naloxone HCl 0.1 mg 01/16/25 13:50 Naloxone Hcl 0.4 Mg/Ml Vial IV PUSH Q2M PRN Opiate Reversal Ondansetron HCl 4 mg 01/15/25 11:49 Ondansetron Inj 4 Mg/2 Ml Vial IV PUSH ONCE PRN Nausea Labs Labs: Laboratory Results - last 24 hr 01/16/25 01/17/25 06:44 05:27 Hgb 12.3 L Hct 38.4 L PT 13.6 D INR 1.0 Sodium 137 Potassium 4.1 Chloride 106 Carbon Dioxide 23 Anion Gap 8 BUN 16 Creatinine 0.86 Estim Creat Clear Calc 99 Estimated GFR > 60 Glucose 122 H Calcium 8.2 L
[2025-01-17] MEDS: KETOROLAC 15 MG/ML VIAL (*BKC) IV PUSH (07:26)
[2025-01-17 07:35] VITALS: BP 128/64; PULSE 69; RESP 18; TEMP 36.6; O2SAT 94
[2025-01-17] MEDS: levoFLOXacin 500 MG TABLET PO (08:16)
[2025-01-17] MEDS: LORATADINE 10 MG TABLET PO (08:16)
[2025-01-17] MEDS: MAGNESIUM OXIDE 400 MG TABLET PO (11:18)
[2025-01-17] MEDS: FERROUS SULFATE 325 MG TABLET DR BY MOUTH ×2 (11:18→17:14)
[2025-01-17 11:35] VITALS: BP 130/58; PULSE 73; RESP 18; TEMP 36.7; O2SAT 93
[2025-01-17 15:35] VITALS: BP 120/65; PULSE 81; RESP 18; TEMP 37.5; O2SAT 91
--- NOTE | 2025-01-17 16:31 | PM.DS ---
DS: Admitting Diagnosis Discharge Date 01/17/25 Admitting Diagnosis Prostate cancer DS: Summary Hospital Course Hospital Course: This patient was admitted on the morning of his planned robotic prostatectomy. This procedure was uneventful, as was his postoperative course. By the evening of the procedure he was sitting at the bedside in tolerating a liquid diet. The following morning he was ambulating freely and tolerating regular food. His catheter drainage remained essentially clear throughout. His postoperative hemoglobin and serum creatinine were unremarkable. At the time of discharge he has been instructed in appropriate care for his Gan catheter with both a leg bag and bedside bag. He will be discharged with plans to follow-up in 1 week with a cystogram. Time Spent with Patient Time attestation: Total time spent providing and/or coordinating discharge services: DS: Data Data Completed and Pending Pending studies at discharge: Pending at discharge 01/16/25 09:46 Surgical [PTH] Routine Labs on day of discharge: Labs from last 24 hours 01/17/25 05:27 Hgb 12.3 L Hct 38.4 L Sodium 137 Potassium 4.1 Chloride 106 Carbon Dioxide 23 Anion Gap 8 BUN 16 Creatinine 0.86 Estim Creat Clear Calc 99 Estimated GFR > 60 Glucose 122 H Calcium 8.2 L Discharge Plan Discharge Patient Disposition: Home Discharge Instructions: 1) Gan catheter -> leg bag / bedside bag at night. 2) No lifting/straining >15lbs. x3 weeks. 3) No driving x1-week. 4) Resume normal, pre-operative diet. 5) My office will contact regarding follow-up in 1-week with cystogram. Patient Language: Jamaican Stand Alone Forms: General Discharge Instructions Discharge Medications: New hydrocodone-acetaminophen 5-325 mg tablet 1 - 2 tablet PO Q6H PRN (Reason: pain) Qty: 20 0RF cephalexin 500 mg capsule 500 mg PO Q8H Qty: 9 0RF hyoscyamine sulfate 0.125 mg tablet 0.125 mg PO Q6H PRN (Reason: bladder spasms) Qty: 20 2RF docusate sodium [Colace] 100 mg capsule 100 mg PO DAILY Qty: 30 0RF Continued magnesium 200 mg tablet 400 mg PO DAILY atorvastatin 40 mg tablet 40 mg PO QPM cholecalciferol (vitamin D3) 50 mcg (2,000 unit) capsule 50 mcg PO DAILY loratadine [Allergy Relief (loratadine)] 10 mg tablet 10 mg PO DAILY ferrous sulfate [FeroSul] 325 mg (65 mg iron) tablet 325 mg PO BID Held ascorbic acid (vitamin C) 500 mg capsule, extended release 500 mg PO DAILY Hold Instructions: Resume on 01/21/25. vitamin E 200 unit capsule 268 mg PO DAILY Hold Instructions: Resume on 01/19/25. Xarelto 20 mg tablet 20 mg PO QPM Hold Instructions: Resume on 01/19/25. Patient Comments: HOLD for 3 days prior to surgery Rx Instructions: must administer with evening meal
[2025-01-17] MEDS: ATORVASTATIN 40 MG TABLET PO (17:14)
== END 2025-01-17 17:48 | disposition home or self-care (01) ==
LOC: ANHSURGERY 06:19 → ANH2MED 14:40
PROVIDERS: PCP Internal Medicine; Visit Provider Urology
PROC: 0VT04ZZ Resection of Prostate, Percutaneous Endoscopic Approach (ICD-10-PCS; CPT 55867; principal; 2025-01-16 07:30)
DX: C61 Malignant neoplasm of prostate (principal); N42.31 Prostatic intraepithelial neoplasia; N40.2 Nodular prostate without lower urinary tract symptoms; N41.1 Chronic prostatitis; R59.0 Localized enlarged lymph nodes; E66.01 Morbid (severe) obesity due to excess calories; Z68.41 Body mass index [BMI] 40.0-44.9, adult; Z79.01 Long term (current) use of anticoagulants; Z82.49 Family history of ischemic heart disease and other diseases of the circulatory system
CPT/HCPCS: 55866; 38571; 36415; 80048; 85014; 85018; 85610; 88305; 88309; A9270; J0330; J0690; J1100; J1171; J1885; J2003; J2250; J2405; J2704; J3010; J7120; Q9968

== ENCOUNTER 2025-01-22 11:22 | Outpatient (CLI) | payer MEDICARE, SELFPAY ==
--- NOTE | ~2025-01-22 | XR_ITS ---
EXAMINATION: CYSTOGRAM DATE: 01/22/2025 12:01 INDICATION: Status post prostatectomy for prostate cancer TECHNIQUE: Initial event set up specialist radiograph of the pelvis was performed. There was retrograde administration of Omnipaque 350 mixed with saline contrast into patient's existing Gan catheter. Fluoroscopic lelia ges of the pelvis were obtained including a postvoid image. A total of 12 overhead radiograph and 10 fluoroscopic images were recorded. Fluoroscopy exposure time was 0.7 minutes. Total DAP was 49.817 Gy cm^2 FINDINGS: V-shaped configuration of the base of the bladder consistent with prior prostatectomy. There is a sma ll bladder leak extending posteriorly from the region of the prostatic urethra. IMPRESSION: 1. Small bladder leak Reviewed, dictated and finalized at location B. IMPRESSION: 1. Small bladder leak
--- OUTSIDE RECORDS SUMMARY | 2025-01-22 12:48 | XMS_ITS | CONTINUITY OF CARE DOCUMENT ---
Author Name velasquez eng Address Unknown Organization [facility] Address [address] [place] [address] [address] [place] [address] Phone [phone] Care Team Providers Care Featherer Name Role Phone Elian WARD, Nash Lawler Unavailable [phone] TRUE ESCAMILLA MD Unavailable [phone] TRUE ESCAMILLA MD Unavailable PROBLEMS Condition Status [...] In-person encounter Office Visit Nash Plummer MD [facility] - In-person encounter Office Visit Mima Grewal MD [facility] - In-person encounter Office Visit Nash Plummer MD [facility] - In-person encounter Office Visit Nash Plummer MD [facility] Prediabetes - In-person encounter Office Visit Nash Plummer MD [facility] Cardiology examinationDVTHTN essentialSleep apneaAbnormal electrocardiogramEctopic Arrhythmia VITAL SIGNS Date Observation Value Provider Body Mass Index (Ratio) 40.03 kg/m2 Lebron nichols Sunil blood pressure, diastolic 88 mm[Hg] Tania cleveland [facility] blood pressure, systolic 150 mm[Hg] [facility] in [facility] oxygen saturation, oximetry 94 % [facility] respiratory rate E&M 12 /min [facility] pulse rate 58 /min [facility] weight E&M 279 [lb_av] [facility] blood pressure, cuff size regular cristofer [facility] height E&M 70 [in_i] [facility] Body Mass Index (Ratio) 40.46 kg/m2 Vinicio [...] Mass Index (Ratio) 39.74 kg/m2 Iraj dasilva [place] blood pressure, diastolic -1 mm[Hg] Li nkLogic [...] Joyreri MORRO drug use no Verah Bonareri DELIVERY TECH alcohol use yes Verah Bonareri DELIVERY TECH smoking status Former smoker Verah Bonare ri DELIVERY TECH personal history of marijuana use no Verah Bonareri DELIVERY TECH drug use no Verah Bonareri DELIVERY TECH alcohol use yes Verah Bonareri DELIVERY TECH smoking status Former smoker Verjoanne Bonare ri DELIVERY TECH social history reviewed E&M revi ewed - no changes required Nash Plummer MD INSURANCE PROVIDERS Payer name Policy type / Coverage type Patric red green party ID AARP MEDICARE ADVANTAGE [facility] t[employer]ck[employer] [id number] ADVANCE DIRECTIVES Name Date DISCUSSED - NO DECISION MADE TREATMENT PLAN Date Name Performer [id number],S,24 hr tele Sa dwayne Plummer MD [id number],C,c urrently on Xaralto needs to remain on [...] venous and artierial studies Nash Plummer MD [id number],S,C heck BP at home before starting meds D iscussion of benefits for remote patient monitoring took place. Patient gives consent for remote monitoring of physiologic parameters including, but not limited to, weight, blood pressure, pulse oximetry, respiratory flow rate. BP today: 120/80 Nash Plummer MD [id number],S,S hows inferior [place] age undetermined. check stress test with Lexiscan. will also obtain 24 hr telemonitor because he seems to have extra heart beats on exam. Nash Plummer MD [id number],S,Needs cardiac AGRAWAL with abnormal EKG Nash Plummer [...] Cardiology: O rders: 9 9214 MOD 30-39min ([id number]) C omplex e/m visit add on (G2211) [...] abnormalities. Joshjoanne Ariane HOOKER Cardiology:24 hr tele Nsah Plummer MD Cardiology:currently on Xaralto needs to [...] 120/80 Nash Plummer MD Cardiology:Shows inf erior [place] age undetermined. check stress test with Lexiscan. [...]
--- OUTSIDE RECORDS SUMMARY | 2025-01-22 12:48 | XMS_ITS | Continuity of Care Document ---
Author Organization [facility] Address [address] [place] [address] Phone Care Team Providers Care Newspaper Editor Managing Name Role Phone Quiles OD, Beny Unavailable Unavailable Advance Directives Directive Yes / No Effective Date File Name No Information Encounters Encounter Description Practice Location Reason(s) For Visit Diagnoses Date Provider Providers Copied on Encounter [facility], [address], [place], [place], [id number], [place] tel:[phone] [facility] [place] No Information 2-200 3 Quiles OD Beny. [address] [place] , [address], [place], [address], [place]. tel:[phone] Family History Family Member Type Diagnosis Age At Onset No Information Payers Payer name Insurance type Covered republican ID Authoriza tion(s) No Information Social History [...]
--- OUTSIDE RECORDS SUMMARY | 2025-01-22 12:48 | XMS_ITS | Clinical Summary ---
Author Organization [facility] Address [address] [place] [address] Care Team Providers Care Chocolate Finisher Operator Name Role Phone Unavailable Primary Care Provider [...] 12/03/2024 4:30 PM CDT Telephone Check Up [facility] - [place] [address] [place] [address] Davy Vera MD 11/27/2024 Orders Only [facility] - [place] [address] [place] [address] Davy Vera MD 11/21/2024 Orders Only [facility]ology - [place] [address] [place] [id number] Davy Vera MD 11/21/2024 Abstract [facility]ology - [place] [address] [place] [address] Davy Vera MD 11/16/2024 Orders Only [facility] Hematology [facility] [address] [place] [address] Davy Vera MD 11/15/2024 3:00 PM SUPERVISOR OPERATIONS Office Visit [facility] Hematology [facility] [address] [place] [address] Davy Vera MD Prostate cancer (CMS/HCC) (Primary [...] on file Legal Sex Male 10:08 AM SUPERVISOR OPERATIONS Gender Identity Not on file Sexual Orientation Not on file Last Filed Vital Signs Vital Sign Reading Time Taken Comments Blood Pressure 123/69 11/15/2024 3:12 PM SUPERVISOR OPERATIONS Pulse 67 11/15/2024 3:12 PM SUPERVISOR OPERATIONS Temperature 36.1 C (97 F) 11/15/2024 3:12 PM SUPERVISOR OPERATIONS Respiratory Rate 15 11/15/2024 3:12 PM SUPERVISOR OPERATIONS Oxygen Saturation 96% 11/15/2024 3:12 PM SUPERVISOR OPERATIONS Inhaled Oxygen Concentration - - Weight 126.6 kg (279 lb) 11/15/2024 3:12 PM SUPERVISOR OPERATIONS Height 177.8 cm (5' 10 ) 11/15/2024 3:12 PM SUPERVISOR OPERATIONS Body Mass Index 40.03 11/15/2024 3:12 PM SUPERVISOR OPERATIONS Plan of Treatment Health Maintenance Due Date [...] CT SKB MD Routine 11/26/2024 10:33 AM SUPERVISOR OPERATIONS TESTOSTERONE FREE Routine 11/15/2024 4:2 6 PM SUPERVISOR OPERATIONS PSA Routine 11/15/2024 11:42 AM SUPERVISOR OPERATIONS from Last 3 Months Results * PET TUMOR GA68 ILLUCIX PSMA IMG W CT SKB MD (11/26/2024 10:33 AM SUPERVISOR OPERATIONS) Anatomical Region Laterality Modality Positron Emissio n Tomography (PET) Davy Vera MD PE ORDERABLES Final Result * TESTOSTERONE FREE (11/15/2024 4:26 PM SUPERVISOR OPERATIONS) Blood Davy Vera MD CHEMISTRY ORDERABLES Final Resu lt * PSA (11/15/2024 11:42 AM SUPERVISOR OPERATIONS) Blood Davy Vera MD CHEMISTRY ORDERABLES Final Resu lt from Last 3 Months Insurance [employer] [facility]
--- OUTSIDE RECORDS SUMMARY | 2025-01-22 12:48 | XMS_ITS | Clinical Summary ---
Author Organization [facility] Address [address] [place] [address] Phone Care Team Providers Care Ms Sql Developer Name Role Phone Provider, None Primary Care Provider Unavailabl e Allergies No known active allergies Medications amphetamine-dex troamphetamine (ADDERALL) 30 MG Tablet TK 1 T PO D 0 8 Active Calcium Carbonate-Vitam in D (Oyster Shell Calcium/D) 500-200 MG-UNIT Tablet Take 1 Tablet by mouth. Active naloxone HCl (Narcan) 4 MG/0.1ML Liquid 1 [place] by Nasal route as needed for Opioid [...] Insurance [facility] Care Teams Ms Sql Developer Relationship Specialty Start Date End Date Provider, None [place] PCP - General 05/01/23
--- OUTSIDE RECORDS SUMMARY | 2025-01-22 12:48 | XMS_ITS | Clinical Summary ---
Author Organization [facility] Address [address] [place] [address] Care Team Providers Care Qa Auditor Name Role Phone Unknown, Provider Primary Care Provider Unavaila ble Source Comments [facility] [employer],non-owned Affiliates and Associated Physician Practices is amultiple site organization consisting of ambulatory clinics and hospital sitesin [place], [place], [place] and [place]. This disclosure is being madepursuant to the Care Everywhere program and may not contain all information available regarding this patient. Last updated 18.[facility] [employer] Allergies No known active allergies Medications * [...] on file Legal Sex Male 5:49 AM [employer] Gender Identity Not on file Sexual Orientation [...] Info) Description 03/18/2025 11:00 AM CDT Appointment [facility] [address] [place] [id number] Gisela Roper, SEARCHLIGHT OPERATOR-PIANO ACCOMPANIST [address] [place] [address] [address] [place] [address] 03/18/2025 12:30 PM CDT Office Visit [facility] GI [address] [place] [address], [place] [phone] Gisela Roper, SEARCHLIGHT OPERATOR-PIANO ACCOMPANIST [address] [place] [address] [address] [place] [address] Health Maintenance Due Date Last Done Comments [...] 7 - 26 mg/dL 12/23/2023 12:06 PM [facility] Creatinine 0.99 0.71 - 1.16 mg/dL 12/23/2023 12:06 PM [facility] Sodium 139 136 - 145 mmol/L 12/23/2023 12:06 PM [facility] Potassium 3.6 3.5 - 4.5 mmol/L 12/23/2023 12:06 PM [facility] Chloride 107 98 - 107 mmol/L 12/23/2023 12:06 PM [facility] CO2 24 22 - 29 mmol/L 12/23/2023 12:06 PM [facility] Glucose 68(L) 70 - 115 mg/dL 12/23/2023 12:06 PM [facility] Calcium 8.8 8.4 - 10.2 mg/dL 12/23/2023 12:06 PM [facility] Protein Total 7.4 6.0 - 8.3 g/dL 12/23/2023 12:06 PM [facility] Albumin 3.5 3.4 - 5.0 g/dL 12/23/2023 12:06 PM [facility] Bilirubin Total 1.0 0.2 - 1.2 mg/dL 12/23/2023 12:06 PM [facility] Alkaline Phosphatase 66 40 - 150 U/L 12/23/2023 12:06 PM [facility] ALT 43 5 - 55 U/L 12/23/2023 12:06 PM [facility] AST 29 5 - 34 U/L 12/23/2023 12:06 PM [facility] Anion Gap 8 6 - 16 12/23/2023 12:06 PM [facility] BUN/Creatinine Ratio 16 7 - 23 12/23/2023 12:06 PM [facility] Osmolality Calculated 287 275 - 295 mOsm/kg 12/23/2023 12:06 PM [facility] Albumin/Globulin Ratio 0.9(L) 1.1 - 2.3 12/23/2023 12:06 PM [facility] eGFR by CKD-EPI 85(L) >=90 mL/min/1.7 3 m2 12/23/2023 12:06 PM [facility] Blood BLOOD SPECIMEN / Unknown Lab Venipuncture / Unknown 12/23/2023 11:22 AM T 12/23/2023 11:38 AM [facility] us Gisela Roper SEARCHLIGHT OPERATOR-PIANO ACCOMPANIST LAB - CHEMISTRY ORD ERABLES Final Result [facility] [address] [place] [address], [facility] [phone] * HEPATITIS C ANTIBODY (12/23/2023 11:22 AM CDT) Hepatitis C Antibody Non-react yoana Non-reac tive 12/23/2023 12:25 PM CDT [facility] Comment:Hepatitis C Antibody screen indicates no [...] CDT 12/23/2023 11:34 AM CDT Gisela Roper SEARCHLIGHT OPERATOR-PIANO ACCOMPANIST LAB - CHEMISTRY ORD ERABLES Final Result [facility] [address] [place] [address], [facility] [phone] from Last 3 Months or Most Recently Relevant to Health Maintenance Insurance [employer]ED [place] [address] Care Teams Qa Auditor Relationship Specialty Start Date End Date Unknown, Provider PCP - General 12/23/23
--- OUTSIDE RECORDS SUMMARY | 2025-01-22 12:48 | XMS_ITS | Continuity of Care Document ---
Author Organization [facility] Address [address] [place] [address] [address] [place] [address] Phone Care Team Providers Care Instructional Systems Designer Name Role Phone Sandro Newman MD Unavailable Unavailable Procedures Procedure Date OFFICE/OUTPATIENT VISIT, [facility] OPHTHALMIC BIOMETRY OPHTHALMIC BIOMETRY Advance Directives Directive Yes / No Effective Date File Name No Information Encounters Encounter Description Practice Location Reason(s) For Visit Diagnoses Date Provider Providers Copied on Encounter OFFICE/OUTPAT IENT VISIT, [facility], [address] [place] [address], [place], [place], [id number], tel:[phone] [facility] [employer] No Information 7 Paty Jo. [address] [place] [address], [address] [place] [address], [facility], . tel:[phone] Referring Provider: Sandro Spring, [address] [place] [address], [place], [place], [facility]. tel:[phone] Family History Family Member Type Diagnosis Age At Onset No Information Payers Payer name Insurance type Covered libertarian ID Authoriza emory(s) [facility](Not Providers) CI [id number] Social History Type Description Quantity Date Captured [...]
--- OUTSIDE RECORDS SUMMARY | 2025-01-22 12:48 | XMS_ITS | Clinical Summary ---
Author Organization [facility] Address [address] [place] [phone] Care Team Providers Care Punch Finisher Name Role Phone Chito Cornejo MD Primary [...] Department Care Team Description 10/23/2024 9:43 PM GROUP INSURANCE SPECIALIST - 10/24/2024 1:59 AM GROUP INSURANCE SPECIALIST Emergency [facility] Emergency Department [address] [place] [address] Joleen Camejo MD Rectal bleeding (Primary Dx) [...] on file Legal Sex Male 1:17 AM GROUP INSURANCE SPECIALIST Gender Identity Not on file Sexual Orientation Not on file Obstetrics History Last Filed Vital Signs Vital Sign Reading Time Taken Comments Blood Pressure 137/85 10/24/2024 1:00 AM GROUP INSURANCE SPECIALIST Pulse 62 10/24/2024 1:50 AM GROUP INSURANCE SPECIALIST Temperature 36.7 C (98 F) 10/23/2024 7:43 PM GROUP INSURANCE SPECIALIST Respiratory Rate 18 10/23/2024 7:45 PM GROUP INSURANCE SPECIALIST Oxygen Saturation 92% 10/24/2024 1:50 AM GROUP INSURANCE SPECIALIST Inhaled Oxygen Concentration - - Weight 127.5 kg (281 lb) 10/23/2024 7:43 PM GROUP INSURANCE SPECIALIST Height 177.8 cm (5' 10 ) 10/23/2024 7:43 PM GROUP INSURANCE SPECIALIST Body Mass Index 40.32 10/23/2024 7:43 PM GROUP INSURANCE SPECIALIST Plan of Treatment Health Maintenance Due [...] HEMOGLOBIN AND HEMATOCRIT STAT 10/24/2024 12:58 AM GROUP INSURANCE SPECIALIST B ABO / RH CONFIRMATION TESTING STAT 10/24/2024 12:58 AM GROUP INSURANCE SPECIALIST SERUM HEPATITIS PANEL Routine 05/24/2015 6:53 AM CDT from Last 3 Months or Most Recently Relevant to Health Maintenance Results * ABO / Rh Confirmation Testing (10/24/2024 12:58 AM GROUP INSURANCE SPECIALIST) ABO/Rh Confirmation B Positive [facility] Blood 10/24/2024 12:5 8 AM GROUP INSURANCE SPECIALIST 10/24/2024 1:02 AM GROUP INSURANCE SPECIALIST us Mora BANKS LAB BLOOD ORDERABLES Blanca l Result [facility] [address] [facility] [place] [address] [facility] * Hemoglobin and hematocrit (10/24/2024 12:58 AM GROUP INSURANCE SPECIALIST) Hgb 13.5 13.0 - 17.5 g/dL Hct 40.1 38.9 - 50.3 % [facility] Blood 10/24/2024 12:5 8 AM GROUP INSURANCE SPECIALIST 10/24/2024 1:02 AM GROUP INSURANCE SPECIALIST us Joleen Camejo MD LAB BLOOD ORDERABLES Final Resul t [facility] [address] [facility] [place] [address] * Serum Hepatitis panel (05/24/2015 6:53 AM [...] 05/26/2015 10:00 AM CDT Test performed at [email or web address] [address] [place] [address] Director: KARLEY ADORNO DO,MPH us Historical Provider LAB BLOOD ORDERABLES Blanca schultz Result HISTORICAL RESULTS from Last 3 Months or Most Recently Relevant to Health Maintenance Insurance [facility] MEDICARE ADVANTAGE Care Teams Punch Finisher Relationship Specialty Start Date End Date Chito Cornejo MD PCP - General 04/11/18
--- OUTSIDE RECORDS SUMMARY | 2025-01-22 12:48 | XMS_ITS | Data Portability ---
Author Organization [place] [facility] [place] [facility], Main Office Address [address] [place] [address] Assessment Encounter Date Assessment Date Assessment LastModified [...] Diagnostic sleep study 03/17/16 AHI = 37 [facility] titration sleep study 10/11/21 sleep onset = 5.5 minutes, REM onset = 53.5 minutes, ResMed medium AirFit F30i full face mask @ 12 cmH2O, PLMI = 26 [facility] titration sleep study 02/22/23 sleep onset [...] remain at 14-15 cmH2O. 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 Keep ramp off. Keep humidifier level at [...] This note is dictated and transcribed by [employer] Fluency Direct Software. Payloader Machine Operator variances may occur. Despite proofreading, typographical errors may occur. Occasional wrong-word or '[id number]' substitutions may have occurred due to the [...] available Lab lipid panel, serum [address] (Lab), [address] [place], [address], 11/13/2024 11:28:55 CBC w/ auto diff 2024 025 [facility] (Lab), [address] [place], [address], 01/10/2025 15:50:15 TSH, serum or plasma [address] (Lab), [address] [place], [address], 11/13/2024 11:28:55 CMP, serum or plasma 2024 025 [facility] (Lab), [address] [place], [address], 01/10/2025 16:45:14 vitamin D, 25-hydrox y, total, serum [address] (Lab), [address] [place], [address], 11/13/2024 11:28:56 vitamin B12 + folate, serum or blood [address] (Lab), [address] [place], [address], 11/13/2024 11:28:56 ferritin, serum or plasma [address] (Lab), [address] [place], [address], 01/21/2025 15:07:59 vitamin E, serum [address] (Lab), [address] [place], [address], 01/21/2025 15:07:59 Referral vascular surgeon referral - Please call patient to schedule an appointme nt. Thank you. 2024 025 [facility] Nash Plummer MD, [address] [facility], [address], [place], [address], 11/13/2024 16:05:21 ophthalmo logist referral - Please call patient to schedule an appointme nt. Thank you 2024 025 [facility], [address], [place], [address], 11/13/2024 15:55:15 wound care referral - Please call patient to schedule an appointme nt. Thank you. 2024 025 [facility], [address] [facility], 6 [address], [place], [address], 11/13/2024 15:55:16 podiatris t referral 2024 025 [email or web address] Roman Escobar DPM, [address] [facility], [address], [place], [address], 11/13/2024 15:24:40 gastroent erologist referral - Please call patient to schedule an appointme nt. Thank you. 2024 025 [email or web address] Elena Bhagat MD, [address] [facility], [address], [place], [address], 11/13/2024 15:11:37 Procedures colonosco py screening (PROC) - Please call patient to schedule an appointme nt. Thank you. 2024 025 [email or web address] Austin Orlando MD, [address] [place], [address], 01/14/2025 08:43:50 Surgeries None recorded. Imaging None recorded. Medication Orders ferrous sulfate 325 mg (65 mg iron) tablet 2024 025 [id number], [address], [place], [place], [id number], 11/15/2024 14:51:25 Vitamin C 500 mg tablet 2024 025 [facility][id number], [address], [place], [place], [id number], 11/15/2024 14:51:24 vitamin E mixed 200 unit tablet 2024 025 [facility] #[id number], [address], [place], [place], [id number], 11/13/2024 10:22:21 Patient TargetsNo targets recorded. Patient Instructions Encounter Date Encounter Id Patient Instructions Last Modified By Organization Details Last Modified Time 10/19/2024 [id number] 1. Prostate ultrasound with biopsies performed today 2. We will schedule him for a telehealth in the next 7-10 days discussed the results or he can come into the office Not available 10/19/2024 16:41:51 11/02/2024 [id number] 1. The patient needs to be referred for consultation for radiation therapy Not available 11/02/2024 14:44:24 Reason for Referral Extension Service Advisor Referral for Onyc homycosis of toenails Referring Physician: Yarelis Martinez Internal Medicine, Encounter Date: 11/13/2024 Digital Program Manager Referral for Cataract Please call patient to schedule an appointment. Thank you Referring Physician: Yarelis Martinez Internal Medicine, Encounter Date: 11/13/2024 Donor Recruitment Manager Referral for Liver enzymes level above reference [...] ferritin 140 NG/mL 24-380 normal Not Available [facility] [address] [place], [address], 11/15/2024 13:14:09 11/12/19 25 11/15/2024 VITAM IN E (TOCO PHERO L) vitamin E, alpha tocopherol 10.0 mg/L 5.7-19 .9 Level s of alpha -toco phero l <5 mg/L are consi stent with Vitam in E defic iency in adult s. Not Available [facility] [address] [place], [address], 11/15/2024 13:14:11 11/12/19 25 11/15/2024 VITAM IN E (TOCO PHERO L) vitamin E, beta gamma tocopherol <1.0 mg/L <4.4 (Note ) Vitam in suppl ement ation withi n 24 hours prior to blood draw may affec t the accur acy of resul ts. This test was devel oped and its doug tical perfo rmanc e pablo cteri stics have been deter mined by [facility]. It has not been clear ed or appro adiranna by the FDA. This assay has been valid ated pursu ant to the CLIA regul ation s and is used for clini preeti purpo ses. MDF med fusio n [address] [facility] [address] [facility] [address] [phone] Miri Dobson MD, PhD Not Available [employer] [facility] [address] [address] [place], , [address], 11/15/2024 13:14:11 12/15/19 25 12/14/2024 imagi ng/di agnos tic resul t No observ ation record ed. [facility] [address] [facility], [place], [address], 12/14/2024 19:56:15 01/11/20 25 01/10/2025 imagi ng/di agnos tic resul t No observ ation record ed. [facility] [address], [place], [address], 01/10/2025 14:43:39 Result Notes None recorded. Problems Name Problem SNOMED Code Status Onset Date Resolution Date Notes Provider Name and Address Organization Details Recorded Time Current tear of medial cartilage AND/OR meniscus of knee Active Not Available [facility] 3 12:49:31 Hyperlipid emia 07621822 Active 2022 Yarelis bryan MD [address] [facility], [facility] [address], [place], [address] , [facility] 3 10:09:14 Obstructiv e sleep apnea syndrome 15147519 Active 2022 Yarelis bryan MD [address], [address], [place], [address] , [place] [facility] 3 10:09:18 Vitamin D deficiency 07723889 Active 2022 Yarelis bryan MD [address], [address], [place], [address] , [place] [facility] 3 10:11:00 Deep venous thrombosis of lower extremity 211095027 Active 2022 Yarelis bryan MD [address], [address], [place], [address] , [place] [facility] 3 10:21:28 Cataract 419753839 Active 2022 Yarelis bryan MD [address], [address], [place], [address] , [place] [facility] 3 10:30:54 Periodic limb movement disorder 212845379 Active 2022 Andres Foreman MD [address], [address], [place], [address] , [facility] 3 10:22:48 Iron deficiency 18045375 Active 2022 Andres Foreman MD [address], [address], [place], [address] , [facility] 3 11:47:50 Vitamin E deficiency 14588735 Active 2022 Andres Formean MD [address], [address], [place], [address] , [place] [facility] 3 11:47:59 Serum vitamin B12 below reference range 079972982 Active 2023 Yarelis bryan MD [address], [address], [place], [address] , [place] [facility] 4 17:22:48 Peripheral venous insufficie ncy 10018874 Active 2023 Roman Escobar DPM [address], [address], [place], [address] , [facility] [employer] [facility] 4 12:21:07 Xerosis due to atopic dermatitis 385340105 Active 2023 Roman Escobar DPM [address], [address], [place], [address] , [facility] [employer] [facility] 4 15:25:23 Prostate nodule 4899817916606 09 Active 2023 Shahbaz Hendrix MD [address], [address], [place], [address] , [facility] [employer] [facility] 4 15:20:38 Influenza caused by Influenza A virus 930524723 Active 2023 Jean Carlos Curry LPN null, [facility] [employer] [facility] 4 12:54:02 Upper respirator y infection 84921472 Active 2023 Jean Carlos Curry LPN null, [facility] [employer] [facility] 4 12:58:26 Prostate specific antigen above reference range 973224278 Active 2024 Maryann gillette, [facility] [employer] [facility] 5 09:06:08 Pain in toe 243026370 Active 2024 Roman Escobar DPM [address], [address], [place], [address] , [facility] [employer] [facility] 5 11:30:41 Dystrophia unguium 98097708 Active 2024 oRman Escobar DPM [address], [address], [place], [address] , [facility] [employer] [facility] 5 11:30:41 Primary adenocarci noma of prostate Active 2024 Shahbaz Hendrix MD [address], [address], [place], [address] , [facility] [employer] [facility] 5 14:44:07 Malignant neoplasm of prostate 785500913 Active 2024 Maryann gillette, [facility] 5 09:08:34 Peripheral vascular disease 430837177 Active 2024 Yarelis bryan MD [address], [address], [place], [address] , [facility] 5 10:51:27 Liver enzymes level above reference range 480842947 Active 2024 Yarelis bryan MD [address], [address], [place], [address] , [facility] 5 10:51:27 Onychomyco sis of toenails 583576774 Active 2024 Yarelis bryan MD [address], [address], [place], [address] , [facility] 5 10:51:27 Ankle pain 394929999 Active 2024 Yarelis bryan MD [address], [address], [place], [address] , [facility] 5 10:51:27 Multiple open wounds of lower leg 045887893 Active 2024 Yarelis bryan MD [address], [address], [place], [address] , [facility] 5 10:51:27 Unable to cut own toenails 290405978 Active 2024 Roman Escobar DPM [address], [address], [place], [address] , [facility] 5 14:41:25 Notes:Medical History: Catar act Bilateral hearing loss/tinnitus Rhinitis Persistent early REM onset Obesity with severe OSAHS, AHI = 37, 03/17/16, on autoCPAP c/o IVRC Mild LAE, EF 58% Hyperlipidemia Hemorrhoids Prostate ca PLMD Iron deficiency Vit B12 deficiency Vit D deficiency OA PVD Left DVT on Xarelto Epidermal cyst Procedure History: Left shoulder replacement 2014 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 Procedures Surgical History Date Name Laterality Status Provider Name and Address Organization Details Recorded Time 5 Nail Debridement completed Roman Escobar DPM [address], [address], [place], [address], [facility] [employer] [facility] [employer] 01/08/2025 14:40:57 5 2. Prostate Biopsy completed Shahbaz Hendrix MD [address], [address], [place], [address], [employer] [facility] [employer] 10/19/2024 16:41:13 4 Nail Debridement completed Roman Escobar DPM [address], [address], [place], [address], [facility] [employer] [facility] [employer] 07/10/2024 13:10:24 4 Wound Care-Podiatry completed Daniel Yo RN PA [employer] [facility] [employer] 06/20/2024 15:11:40 4 Wound Care-Podiatry completed Norma Ellis RN PA [facility] [employer] 05/02/2024 12:17:37 4 Wound Care-Podiatry completed Roman Escobar DPM [address], [address], [place], [address], [employer] [facility] [employer] 04/25/2024 12:31:52 4 Nail Debridement completed Parker Abdi DPM [address], [address], [place], [address], [employer] [facility] [employer] 12/05/2023 10:15:10 4 Trigger Point Injection completed Parker Abdi DPM [address], [address], [place], [address], [employer] PA [facility]e [facility] [employer] 11/24/2023 16:01:38 4 Unna boot - LE edema completed Parker Abdi DPM [address], [address], [place], [address], [employer] [facility] 11/24/2023 16:01:14 total shoulder replacement completed CESAR Cisneros [place] [facility] 07/28/2023 10:02:28 Cataract Surgery completed CESAR Cisneros [place] - [facility] 07/28/2023 10:02:36 Imaging Results Imaging Date Name Status LastModified by Organiz ation Details LastModified Time 12/14/2024 imaging/diagn ostic result active [facility] [address], [place], [address], 12/14/2024 19:56:15 01/10/2025 imaging/diagn ostic result active [facility] [address] [facility] [address], [place], [address], 01/10/2025 14:43:39 Procedure Notes None recorded. Medical [...] cm 82 /min 98.1 [degF] 40.3 kg/m2 920450. 46 g 98 % 98 % 167 mm[Hg] 90 mm[Hg] Nakia Rico CMA [place] [facility] 5 16:20:24 Date Recorded Body height Body mass index (BMI) Body weight Body temperature Heart rate Oxygen saturation Oxygen saturation in Arterial blood by Pulse oximetry Systolic blood pressure Diastolic blood pressure Provider Name and Address Organization Details Last Updated DateTime 5 177.8 cm 40.3 kg/m2 201039. 46 g 97.6 [degF] 85 /min 97 % 97 % 144 mm[Hg] 75 mm[Hg] Maryann Moser [facility] [employer] [facility] 5 14:12:01 Date Recorded Body height Body mass index (BMI) Body weight Body temperature Heart rate Oxygen saturation Oxygen saturation in Arterial blood by Pulse oximetry Pain severity - 0-10 verbal numeric rating [Score] - Reported Systolic blood pressure Diastolic blood pressure Provider Name and Address Organization Details Last Updated DateTime 5 177.8 cm 40.2 kg/m2 616063. 86 g 98.4 [degF] 70 /min 95 % 95 % 0 144 mm[Hg] 70 mm[Hg] Yaa Scott MA [facility] [employer] [facility] 5 10:41:11 Date Recorded Body height Body mass index (BMI) Body weight Body temperature Oxygen saturation Oxygen saturation in Arterial blood by Pulse oximetry Systolic blood pressure Diastolic blood pressure Provider Name and Address Organization Details Last Updated DateTime 5 177.8 cm 40.2 kg/m2 155601. 86 g 98.4 [degF] 95 % 95 % 144 mm[Hg] 70 mm[Hg] Razia Bae MA [facility] [employer] [facility] 5 10:09:16 Date Recorded Heart rate Heart rate Respiratory rate Provider Name and Address Organization Details Last Updated DateTime 11/13/2024 71 /min 71 /min 15 /min Andres Foreman MD [address] [place] [address], [address], [facility] [employer] [facility] 11/13/2024 10:50:59 Date Recorded Body height Body mass index (BMI) Body weight Heart rate Respiratory rate Oxygen saturation Oxygen saturation in Arterial blood by Pulse oximetry Systolic blood pressure Diastolic blood pressure Provider Name and Address Organization Details Last Updated DateTime 5 177.8 cm 40.2 kg/m2 671644. 86 g 72 /min 14 /min 98 % 98 % 127 mm[Hg] 75 mm[Hg] Vania Wylie [facility] [employer] [facility] 5 11:40:47 Social History Question Answer Notes LastModified by Organization Details LastModified Time Tobacco Smoking Status Never Smoker Mar Daly, CESAR gillette, [place] [facility] 07/28/2023 10:00:00 Do You Have An Advance [...] Or The Highest Degree You Have Received? [id number] Information not available 07/28/2023 Do You Have [...] Do You Have A Medical Power Of Cigarette Machine Operator? No Information not available 07/28/2023 Do You Have Moisture Problems In Your Home? No Information not available 09/20/2023 What Was The Date Of Your Most Recent Tobacco Screening? 11/13/2024 Information not available 11/13/2024 Have You Ever Been Counseled For Unhealthy Alcohol Use? No Information not available 07/28/2023 Do You Have Any Pets? Yes 5 Cats 2 Dogs [email or web address] Information not available 02/21/2024 What Is Your [...] Anxious, Or Unable To Sleep At Night)? [id number] Information not available 07/28/2023 Do You Use [...] Time Mother General health good deceas ed dn Not available 07/28/2023 09:58:38 Father [...] DIVERTICULITIS N SLEEP APNEA Y CHICKENPOX N BACK INJECTIONS N ALLERGIES/HAYFEVER Y INFECTIOUS DISEASE N PROSTATE N HEART ARRHYTHMIA N INSOMNIA N ESRD N HIGH CHOLESTEROL / HYPERLIPIDEMIA Y HYPERTHYROIDISM [...] Brain Problems N HERPES N DEMENTIA N SEIZURES/EPILEPSY N HEADACHES/MIGRAINES N VASCULAR DISEASE N PACEMAKER N DIZZINESS N KIDNEY DISEASE N HEART DISEASE/HEART PROBLEMS N MULTIPLE SCLEROSIS N NEUROPSYCHOLOGICAL N CARDIAC ARRHYTHMIA N CANCER: SPECIFY N Gall Stones N ATRIAL FIBRILLATION N PULMONARY EMBOLISM N AUTOIMMUNE DISEASE N Immunizations Vaccine Type Date Status Note Provider Nam e and Address Organization Details Recorded Time Pneumococcal conjugate PCV20, polysaccharide END927 conjugate, adjuvant, PF 3 completed Yarelis Martinez MD [address] [facility], [address], [place], [address], [facility] [employer] 07/28/2023 17:42:18 Past Encounters Encounter ID Performer Location Encounter Start Date Encounter Closed Date Diagnosis/Indication Diagnosis SNOMED-CT Code Diagnosis ICD10 Code Diagnosis Note [id number] Yarelis bryan MD [facility] Internal Med [address] [facility] [place] [address] 07/28/2023 09:45:09 07/28/2023 10:40:40 Screening - NAD 981559510 Z13.9 C-scope: Get this Get yearly flu shotGet Tdap if not doneAgreea ble to do PCV #20 07/28/2023 Get shingrix vaccineCan do COVID 19 vaccine and also RSV RTC in 4 months, do labs, ER if worse Screening for malignant neoplasm of colon 804699757 Z12.11 Hyperlipidemia 86465408 E78.5 Not on any medsGet labs Obstructiv e sleep apnea syndrome 54248226 G47.33 Sleep study 02/22/[address] Tre Ramirez get a referral to Dr Foreman Screening for malignant neoplasm of prostate 758406527 Z12.5 Vitamin D deficiency 347 86773 E55.9 Serum suzie min B12 below reference range 408048001 R79.89 Peripheral vascular disease 385831500 I73.9 Needs a referral to cardiology , will see Dr Plummer today 07/28/2023 at 2.00pm Deep venou s thrombosis of lower extremity 153072640 I82.409 L leg DVT as per his historyDoe s have venous stasis skin changes and also pitting edema but dave LETreated in the ER for L LE cellulitis On xareltoNee ds to see cardiology Addendum: 07/28/2023 Dr Plummer [facility] 07/28/2023 Cataract 339012454 H26.9 L eye doneNeeds R eye Administra tion of pneumococcal vaccine 91049058 Z23 [id number] Andres Foreman MD [facility] [id number] 09/01/2023 09:32:16 09/02/2023 08:18:32 Obstructive sleep apnea syndrome 92795182 G47.33 Periodic l imb movement disorder 543834550 G47.61 D50.8 E83.42 [id number] Andres Foreman MD S_[place] [id number] 09/20/2023 10:11:01 09/21/2023 09:02:48 Obstructive sleep apnea syndrome 79153877 G47.33 Iron deficiency 67380039 E61.1 Vitamin E deficiency 541 95861 E56.0 [id number] Yarelis bryan MD [facility] Internal Med [facility] [address] [place] [address] Ave[address] [place] [address] 10/18/2023 10:09:16 10/20/2023 10:08:49 Screening - NAD 547207645 Z13.9 C-scope: Get this Get yearly flu shotGet Tdap if not doneAgreea ble to do PCV #20 07/28/2023 Get shingrix vaccineCan do COVID 19 vaccine and also RSV RTC in 4 months, do labs, ER if worse Screening for malignant neoplasm of colon 548720363 Z12.11 Hyperlipidemia 41967649 E78.5 Not on any medsGet labs Obstructiv e sleep apnea syndrome 02115124 G47.33 Sleep study 02/22/[address] Tre Ramirez get a referral to Dr Foreman Vitamin D deficiency 347 74724 E55.9 Serum suzie min B12 below reference range 099754323 R79.89 Peripheral vascular disease 178288909 I73.9 Needs a referral to cardiology , will see Dr Plummer 09/16/2023 , f/u in 6 months Deep venou s thrombosis of lower extremity 201606747 I82.409 L leg DVT as per his historyDoe s have venous stasis skin changes and also pitting edema but dave LETreated in the ER for L LE cellulitis On xarelto Dr Plummer [facility] Cataract 449469460 H26.9 L eye doneNeeds R eye Liver enzy mes level above reference range 603558514 R74.8 US liver 09/05/2023 : Hepatic steatosisN eeds to see GI Prostate s pecific antigen above reference range 031584585 R97.20 High normal PSANeeds to see urology Hyperproteinemia 5648129 9 E88.09 Get UPEP/SPEP Ankle pain 969862856 M25 .579 Get a referral to podiatry [id number] Parker Abdi DPM [facility] [place] [address] [address] 11/24/2023 14:51:54 11/24/2023 16:06:14 Pain in left foot 1170552843 78290 M79.672 Edema of l ower extremity 492224232 R60.0 Left foot neuritis 98638 57968 77496 G57.82 Dry skin dermatitis 2600 79367 L85.3 [id number] Parker Abdi DPM [facility] [place] [address] [place] [address] 12/05/2023 09:34:44 12/05/2023 11:09:15 Onychomycosis of toenails 483852555 B35.1 [id number] Andres Foreman MD [facility] [address] [address] 12/21/2023 09:43:44 12/22/2023 09:46:44 Obstructive sleep apnea syndrome 90939147 G47.33 Iron deficiency 37182755 E61.1 Vitamin E deficiency 541 51570 E56.0 [id number] Yarelis bryan MD [facility] Internal [facility] [address] [address] 02/21/2024 09:41:06 02/21/2024 10:25:01 Screening - NAD 412493306 Z13.9 C-scope: Get this Get yearly flu shotGet Tdap if not doneUTD on PCV #20 07/28/2023 Get shingrix vaccineCan do COVID 19 vaccine and also RSV RTC in 4 months, do labs, ER if worse Screening for malignant neoplasm of colon 865185985 Z12.11 Hyperlipidemia 27702151 E78.5 On atorvastat in 40mg dailyGet labs Obstructiv e sleep apnea syndrome 19000291 G47.33 Sleep study 02/22/[address] [place] neurologke[facility] t Dr Foreman 12/21/2023 , next 03/22/2024 Vitamin D deficiency 347 48571 E55.9 Serum suzie min B12 below reference range 415692639 R79.89 Peripheral vascular disease 500443673 I73.9 Dr Plummer 09/16/2023 , f/u in 6 months Deep venou s thrombosis of lower extremity 407617601 I82.409 L leg DVT as per his historyDoe s have venous stasis skin changes and also pitting edema but dave LETreated in the ER for L LE cellulitis On xarelto Dr Plummer [facility] Cataract 423855769 H26.9 L eye doneNeeds R eye Liver enzy mes level above reference range 544261141 R74.8 US liver 09/05/2023 : Hepatic steatosisN eeds to see GI Prostate s pecific antigen above reference range 917109680 R97.20 High normal PSANeeds to see urology Hyperproteinemia 9419618 9 E88.09 Get UPEP/SPEP Ankle pain 106629822 M25 .579 Dr Abdi 11/24/2023 , 12/05/2023 States that he is doing much better, and now is able to walk up and down stairs [id number] [facility]G Pulmonolo [facility] [address] [place] [address] 03/22/2024 09:52:59 03/23/2024 15:18:44 Obstructive sleep apnea syndrome 38848602 G47.33 Iron deficiency 38981169 E61.1 Vitamin E deficiency 541 11057 E56.0 [id number] Roman Escobar DPM [facility]Gate [facility] [address] [place] [address] 04/25/2024 10:48:12 04/25/2024 12:36:31 Deep venous thrombosis of lower extremity 253299994 I82.409 repeat ultrasound due to lower extremity pain, history of DVTfollow- up results Peripheral venous insufficiency 97913823 I87.2 recommend chronic compressio n therapy Open wound of left lower leg 1286285740 4190096 S81.802A multiple lower legcontinu e compressio nkeep clean and dryfollow- up 1 week Open wound of right lower leg 8524897398 9207751 S81.801A as above [id number] Yarelis bryan MD S_[facility] [place] Internal Med [facility] [address] [facility] [address] [place] [address] 04/26/2024 17:15:33 04/26/2024 18:07:15 Peripheral vascular disease 807594010 I73.9 Dr Plummer 09/16/2023 , f/u in 6 [facility]Se[facility] Onychomyco sis of toenails 326858356 B35.1 In grown toenails, dave big toesGet a referral to podiatry Hyperlipidemia 57011232 E78.5 On atorvastat in 40mg dailyGet labs Vitamin D deficiency 347 84975 E55.9 Serum suzie min B12 below reference range 008497160 R79.89 [id number] Roman Escobar DPM [facility]Abdoulaye ay W[facility] [address] [place] [address] 05/02/2024 11:15:40 05/02/2024 16:08:25 Deep venous thrombosis of lower extremity 461184834 I82.409 repeat ultrasound due to lower extremity pain, history of DVTfollow- up results Peripheral venous insufficiency 31390986 I87.2 recommend chronic compressio n therapyRec ommend follow-up with vascular for end of venous procedures if possible Open wound of left lower leg 2619649261 3466912 S81.802A multiple lower leg- gentian roseanna applied todayconti nue compressio nkeep clean and dryfollow- up 1 week Open wound of right lower leg 4662726299 6075864 S81.801A healed [id number] Yarelis bryan MD [facility] Internal Med [facility] [address] [facility] [place] [address] 06/14/2024 09:39:45 06/14/2024 10:11:04 Peripheral vascular disease 214182926 I73.9 Dr Grewal [facility] 05/04/2024 , f/u in 6 monthsSeen [facility] the ER [facility] Dr Holm be on xarelto lifelong as per [facility] Onychomyco sis of toenails 914375039 B35.1 In grown toenails, dave big toesDr Shawn 05/02/2024 Hyperlipidemia 89403310 E78.5 On atorvastat in 40mg dailyGet labs Vitamin D deficiency 347 19918 E55.9 Serum suzie min B12 below reference range 665899695 R79.89 Screening - NAD 44556773 3 Z13.9 C-scope: Get this Get yearly flu shotGet Tdap if not doneUTD on PCV #20 07/28/2023 Get shingrix vaccineCan do COVID 19 vaccine and also RSV RTC in 4 months, do labs, ER if worse Screening for malignant neoplasm of colon 583642623 Z12.11 Obstructiv e sleep apnea syndrome 84419501 G47.33 Sleep study 02/22/[address] [place] neurologis tDr Foreman Deep venou s thrombosis of lower extremity 850065056 I82.409 L leg DVT as per his historyDoe s have venous stasis skin changes and also pitting edema but dave LETreated in the ER for L LE cellulitis On xarelto Dr Plummer [facility] Cataract 318901288 H26.9 L eye doneNeeds R eye Liver enzy mes level above reference range 757340514 R74.8 US liver 09/05/2023 : Hepatic steatosisN eeds to see GI Prostate s pecific antigen above reference range 732322167 R97.20 High normal PSANeeds to see urology Ankle pain 721635614 M25 .579 Dr Abdi 11/24/2023 , 12/05/2023 States that he is doing much better, and now is able to walk up and down stairs Multiple o pen wounds of lower leg 638194778 S81.801A Sees Dr Cantor eds to see wound clinicStar t on augmentinE R if worse [id number] Andres Foreman MD S_[facility] [place] [facility] [address] [address] 06/20/2024 09:47:59 06/28/2024 11:37:07 Obstructive sleep apnea syndrome 39024273 G47.33 Iron deficiency 95133254 E61.1 Vitamin E deficiency 541 67167 E56.0 [id number] Roman Escobar DPM Cr_[facility] ay Wound Care [address] [place] [address] 06/20/2024 14:12:50 06/20/2024 15:58:02 Abrasion of skin of right lower leg 6459183102 6799304 S80.811A gentian roseanna applied todayNew a wound care until healedIf not healed in 1 week return to office Peripheral venous insufficiency 63152916 I87.2 recommend chronic compressio n therapyRec ommend follow-up with vascular for end of venous procedures if possible Xerosis du e to atopic dermatitis 938142942 L85.3 left legfollow- up 3 weeks if not resolved referral to Dermatolog y [id number] Roman Escobar DPM S_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 L60.3 nails debrided without incident Pain in toe 202899080 M7 9.674 M79.265 [id number] MD MARLENY Davila[facility] [place] [address] [place], [place] [address] [place] [address] 07/18/2024 11:18:53 07/18/2024 13:36:32 Prostate nodule 3334740055 38468 N40.2 [id number] MD MARLENY Grajeda_[facility] [address] [address] 09/13/2024 09:57:41 09/13/2024 13:34:36 Obstructive sleep apnea syndrome 04639481 G47.33 Iron deficiency 60501886 E61.1 Vitamin E deficiency 541 50128 E56.0 [id number] Roman Escobar DPM S[facility] [place] [address] [facility], [facility] 4 [place] [address] 10/09/2024 11:17:46 10/22/2024 09:29:53 Dystrophia unguium 35066748 L60.3 nails debrided without incident Pain in toe 919888106 M7 9.674 M79.675 toes due to elongated nails [id number] Shahbaz Hendrix MD S_[facility] [address] [address] 10/19/2024 16:03:11 10/22/2024 09:39:27 [id number] Shahbaz Hendrix MD S_[facility] [address] [address] 11/02/2024 13:55:53 11/02/2024 14:26:25 Prostate nodule 9431705319 01958 N40.2 Prostate s pecific antigen above reference range 004979440 R97.20 Primary adenocarcinoma of prostate 8674657749 C61 [id number] Andres Foreman MD S_[facility] Pulmonolo gy [address] [address] 11/13/2024 09:55:52 11/13/2024 13:47:55 Obstructive sleep apnea syndrome 75213504 G47.33 Iron deficiency 29290685 E61.1 Vitamin E deficiency 541 00421 E56.0 [id number] Yarelis bryan MD [facility] Internal Med [facility] [address] [place] [address] 11/13/2024 09:58:01 11/13/2024 11:30:12 Peripheral vascular disease 963410985 I73.9 Dr Grewal [facility] 05/04/2024 , f/u in 6 monthsSeen in the ER at [facility] Holm be on xarelto lifelong as per [facility] Onychomyco sis of toenails 771396618 B35.1 In grown toenails, dave big toesDr Shawn 05/02/2024 , last apt 10/09/2024 , next 01/08/2025 Hyperlipidemia 59013032 E78.5 On atorvastat in 40mg dailyGet labs Vitamin D deficiency 347 27422 E55.9 Serum suzie min B12 below reference range 975224136 R79.89 Screening - NAD 07529961 3 Z13.9 C-scope: Get this Get yearly flu shotGet Tdap if not doneUTD on PCV #20 07/28/2023 Get shingrix vaccineCan do COVID 19 vaccine and also RSV RTC in 4 months, do labs, ER if worse Screening for malignant neoplasm of colon 715469700 Z12.11 Obstructiv e sleep apnea syndrome 54438933 G47.33 Sleep study 02/22/[address] [place] neurologis [facility] Foreman seen 11/13/2024 , next apt on 02/12/2025 Deep venou s thrombosis of lower extremity 914199309 I82.409 L leg DVT as per his historyDoe s have venous stasis skin changes and also pitting edema but dave LETreated in the ER for L LE cellulitis On xarelto Dr Plummer [facility], is to get ECHO on 12/14/2024 and a sleep monitor on 11/16/2024 and f/u Dr Plummer 02/01/2025 Cataract 821083921 H26.9 L eye doneNeeds R eye Liver enzy mes level above reference range 181206399 R74.8 US liver 09/05/2023 : Hepatic steatosisN eeds to see GI Ankle pain 074108440 M25 .579 Dr Abdi 11/24/2023 , 12/05/2023 States that he is doing much better, and now is able to walk up and down stairs Multiple o pen wounds of lower leg 257796987 S81.801A Sees Dr Cantor eds to see wound clinicStar t on augmentinE R if worse Malignant neoplasm of prostate 258922439 C61 Addendum: 11/06/2024 :Bx notedWill refer to Dr Vera [id number] Roman Escobar DPM [facility] [address] [place] [address] 01/08/2025 11:20:55 01/08/2025 16:09:10 Dystrophia unguium 94388919 L60.3 nails debrided without incident Unable to cut own toenails 014026129 Z74.1 secondary to obesity Health Concerns Section Related Observation LastModified by Organization Detai ls LastModified Time None Recorded Concern Status LastModified by Organization Details LastModified Time None Recorded Advance Directives Directive N: Payers Encounter Date Sequence Insurance Name Policy Number Policy Mosquera Covered Member ID Mosquera Member ID Guarantor Name 10/19/2024 1 [employer] (MEDICARE REPLACEMENT/A DVANTAGE - HMO) [id number] Kendall Monroe [id number] Kendall Monroe 11/02/2024 1 [employer] (MEDICARE REPLACEMENT/A DVANTAGE - HMO) [id number] Kendall Monroe [id number] Kendall Monroe 11/13/2024 1 [facility] (MEDICARE REPLACEMENT/A DVANTAGE - HMO) [id number] Kendall Monroe [id number] Kendall Monroe 11/13/2024 1 [facility] (MEDICARE REPLACEMENT/A DVANTAGE - HMO) [id number] Kendall Monroe [id number] Kendall Monroe 01/08/2025 1 [employer] (MEDICARE REPLACEMENT/A DVANTAGE - PPO) Kendall Monroe [id number] Kendall Monroe Notes Date Note Type Note Provider Name and Address Organization Details Recorded Time 11/02/2024 text/html this patient was found to have a prostate nodule and underwent ultrasound with biopsies and on the right side he had 3/8 cores that were positive for [place] score 4+4=8. He has several comorbidities. Shahbaz Hendrix MD [address] [facility], [place], [address], [facility] [employer] 11/02/2024 14:45:12 11/13/2024 text/html OV 07/28/2023:He re [...] stairs OV 04/26/2024: Here s/p ER at [facility] for LE swelling and edema, today [...] is doing well today Yarelis Martinez MD [address] [place] [address], [phone], [facility] [employer] 11/13/2024 11:25:52 11/13/2024 text/html Primary care/Ref erring provider: Yarelis Matrinez MD CC: The last time I got CPAP supplies was before the last visit in 08/2024. My mask is broken and I could not use my CPAP since 09/26/24. [employer]Med large AirFit F20 full face mask is what I need. The medium is too small. During the diagnostic sleep study on 03/17/16, AHI = 37.During the [facility] titration sleep study on 10/11/21, sleep onset = 5.5 minutes, REM onset = 53.5 minutes, [employer]Med medium AirFit F30i full face mask @ 12 cmH2O was applied, PLMI = 26. During the [facility] titration sleep study on 02/22/23, sleep [...] of dozing. Andres Foreman MD [address], [place] [address], [place], [address], [employer] [facility] [employer] 11/15/2024 14:53:08 01/08/2025 text/html . Patient is a 64-year-old male who returns the office for routine foot care. Patient denies any other complaints. Roman Escobar DPM [address] [facility] [address], [place], [address], [employer] [facility] [employer] 01/08/2025 14:41:48
--- OUTSIDE RECORDS SUMMARY | 2025-01-22 12:48 | XMS_ITS | Referral Summary ---
Author Organization [facility] B Address [address] [place] [address] Care Team Providers Care Regulatory Product Manager Name Role Phone Chito Cornejo MD Primary Care Provider + Encounters Date Type Department Care Team Description 10/23/2024 9:43 PM [employer] - 10/24/2024 1:59 AM [employer] Emergency [facility] Emergency Department [address] [place] [address] Joleen Camejo MD Rectal bleeding (Primary Dx) [...] on file Legal Sex Male 1:17 AM [employer] Gender Identity Not on file Sexual Orientation Not on file Last Filed Vital Signs Vital Sign Reading Time Taken Comments Blood Pressure 137/85 10/24/2024 1:00 AM [employer] Pulse 62 10/24/2024 1:50 AM [employer] Temperature 36.7 C (98 F) 10/23/2024 7:43 PM [employer] Respiratory Rate 18 10/23/2024 7:45 PM [employer] Oxygen Saturation 92% 10/24/2024 1:50 AM [employer] Inhaled Oxygen Concentration - - Weight 127.5 kg (281 lb) 10/23/2024 7:43 PM [employer] Height 177.8 cm (5' 10 ) 10/23/2024 7:43 PM [employer] Body Mass Index 40.32 10/23/2024 7:43 PM [employer] Plan of Treatment Not on file Procedures Procedure Name Priority Date/Time Associated Diagnosis Comments HEMOGLOBIN AND HEMATOCRIT STAT 10/24/2024 12:58 AM [employer] B ABO / RH CONFIRMATION TESTING STAT 10/24/2024 12:58 AM [employer]ACH SERUM HEPATITIS PANEL Routine 05/24/2015 6:53 AM CDT from Last 3 Months or Most Recently Relevant to Health Maintenance Results * ABO / Rh Confirmation Testing (10/24/2024 12:58 AM [employer]) ABO/Rh Confirmation B Positive [facility] Blood 10/24/2024 12:5 8 AM [employer] 10/24/2024 1:02 AM [employer] Mora BANKS LAB BLOOD ORDERABLES Blanca l Result [facility] [place] ([place] [address] [place] [address] [place] [address] [facility] * Hemoglobin and hematocrit (10/24/2024 12:58 AM [employer]) [facility] Hgb 13.5 13.0 - 17.5 g/dL Hct 40.1 38.9 - 50.3 % [facility] ([place] Blood 10/24/2024 12:5 8 AM [employer]ACH 10/24/2024 1:02 AM [employer] COACH Result [facility] Joleen Camejo MD LAB BLOOD ORDERABLES Final Resul t Performing Organization Address [facility] Co de Phone Number [facility] ([place]) [address] [place] [address] [place] [address] * Serum Hepatitis panel (05/24/2015 6:53 AM CDT) [facility] HAV ab, IgM NON-REACTI VE NON-REACTI VE HISTORICAL RESULTS HBV surface ag NON-REACTI VE NON-REACTI VE HISTORICAL RESULTS HBV core ab, IgM NON-REACTI VE NON-REACTI VE HISTORICAL RESULTS HCV ab NON-REACTI VE NON-REACTI VE HISTORICAL RESULTS Hepatitis signal to cutoff ratio 0.05 <1.00 HISTORICAL RESULTS Serum 05/24/2015 6:53 AM CDT Narrative HISTORICAL RESULTS - 05/26/2015 10:00 AM CDT Test performed at [employer] [address] [facility] [place] [address] Director: KARLEY ADORNO DO,MPH Sal Hicks MD LAB BLOOD ORDERABLES Blanca l Result HISTORICAL RESULTS from Last 3 Months or Most Recently Relevant to Health Maintenance Insurance [employer] [place] [facility] MEDICARE ADVANTAGE [facility] Address: [address] [address] [place] [address] Care Teams Regulatory Product Manager Relationship Specialty Start Date End Date Chito Cornejo MD [facility] - General 04/11/18
== END 2025-01-22 11:23 | disposition home or self-care (01) ==
PROVIDERS: PCP Internal Medicine; Visit Provider Urology
DX: R32 Unspecified urinary incontinence (principal); Z85.46 Personal history of malignant neoplasm of prostate; Z98.890 Other specified postprocedural states
CPT/HCPCS: 51600; 74430; Q9967

== ENCOUNTER 2025-01-29 09:38 | Outpatient (CLI) | payer MEDICARE, SELFPAY ==
--- NOTE | ~2025-01-29 | XR_ITS ---
EXAMINATION: CYSTOGRAM DATE: 01/29/2025 10:37 INDICATION: Bladder leak post prostatectomy TECHNIQUE: Initial plastic boat patcher radiograph of the pelvis was performed. There was retrograde administration of Omnipaque 350 mixed with saline contrast into patient's existing Gan catheter. Fluoroscopic lelia ges of the pelvis were obtained. A post-void image was also performed. A total of one overhead radiog raph and 14 fluoroscopic images were recorded. Fluoroscopy exposure time was 1.3 minutes. Total DAP w as 32.3 mGycm^2. COMPARISON: 01/22/2025 FINDINGS: Again seen is a small bladder leak arising from the left posterior aspect of the anastomosis with the prostatic urethra. The amount of extravasated contrast is significantly less than on the prior study . IMPRESSION: 1. Persistent bladder leak with significant decrease in a now minimal amount of extravasated contras t. Reviewed, dictated and finalized at location A. IMPRESSION: 1. Persistent bladder leak with significant decrease in a now minimal amount o f extravasated contrast.
--- OUTSIDE RECORDS SUMMARY | 2025-01-29 10:22 | XMS_ITS | Clinical Summary ---
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 Gender Identity Not on file Sexual Orientation Not on file Obstetrics History Last Filed Vital Signs Vital Sign Reading Time Taken Comments Blood Pressure 137/85 10/24/2024 1:00 AM [employer] MERCHANDISING Pulse 62 10/24/2024 1:50 AM [employer] MERCHANDISING Temperature 36.7 C (98 F) 10/23/2024 7:43 PM [employer] MERCH[employer]ISING Respiratory Rate 18 10/23/2024 7:45 PM [employer] MERCHANDISING Oxygen Saturation 92% 10/24/2024 1:50 AM [employer] MERCHANDISING Inhaled Oxygen Concentration - - Weight 127.5 kg (281 lb) 10/23/2024 7:43 PM [employer] MERCHANDISING Height 177.8 cm (5' 10 ) 10/23/2024 7:43 PM [employer] MERCHANDISING Body Mass Index 40.32 10/23/2024 7:43 PM [employer] MERCHANDISING Plan of Treatment Health Maintenance Due Date [...] Procedure Name Priority Date/Time Associated Diagnosis Comments SERUM HEPATITIS PANEL Routine 05/24/2015 6:53 AM CDT from Last 3 Months or Most Recently Relevant to Health Maintenance Results * Serum Hepatitis panel (05/24/2015 6:53 AM [...] 05/26/2015 10:00 AM CDT Test performed at [facility] [address] [place] [address] Director: KARLEY ADORNO DO,MPH us Historical Provider LAB BLOOD ORDERABLES Blanca l Result HISTORICAL RESULTS from Last 3 Months or Most Recently Relevant to Health Maintenance [facility] [place] [facility] MEDICARE ADVANTAGE Care Teams Legal Services Manager Relationship Specialty Start Date End Date Chito Cornejo MD PCP - General 04/11/18
--- OUTSIDE RECORDS SUMMARY | 2025-01-29 10:22 | XMS_ITS | Clinical Summary ---
Author Organization [facility] Address [address] [place] [address] Care Team Providers Care Injector Assembler Name Role Phone Unknown, Provider Primary Care Provider Unavaila ble Source Comments [facility],non-owned Affiliates and Associated Physician Practices is amultiple site organization consisting of ambulatory clinics and hospital sitesin [place], [place], [place] and [place]. This disclosure is being madepursuant to the Care Everywhere program and may not contain all information available regarding this patient. 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 Gender Identity Not on file Sexual Orientation [...] Info) Description 03/18/2025 11:00 AM CDT Appointment [facility] [address] [place] [address] Gisela Roper, GRAZING EXAMINER-FARM WORKER [address] [place] [address] [address] [place] [address] 03/18/2025 12:30 PM CDT Office Visit [facility] [address] [place] [address], [place] [address] Gisela Roper, GRAZING EXAMINER-FARM WORKER [address] [place] [address] [address] [place] [address] Health Maintenance Due Date Last Done Comments [...] VACCINE (1 of 2) 2008 COVID-19 VACCINE (1 - 2023-2 5 season) 2024 DEPRESSION SCREENING [...] 7 - 26 mg/dL 12/23/2023 12:06 PM [facility] Creatinine 0.99 0.71 - 1.16 mg/dL 12/23/2023 12:06 PM [facility] Sodium 139 136 - 145 mmol/L 12/23/2023 12:06 PM [facility] Potassium 3.6 3.5 - 4.5 mmol/L 12/23/2023 12:06 PM CDT [facility] Chloride 107 98 - 107 mmol/L 12/23/2023 12:06 PM [facility] CO2 24 22 - 29 mmol/L 12/23/2023 12:06 PM [facility] Glucose 68(L) 70 - 115 mg/dL 12/23/2023 12:06 PM [facility] Calcium 8.8 8.4 - 10.2 mg/dL 12/23/2023 12:06 PM [facility] Protein Total 7.4 6.0 - 8.3 g/dL 12/23/2023 12:06 PM [facility] Albumin 3.5 3.4 - 5.0 g/dL 12/23/2023 12:06 PM [facility] Bilirubin Total 1.0 0.2 - 1.2 mg/dL 12/23/2023 12:06 PM [facility] Alkaline Phosphatase 66 40 - 150 U/L 12/23/2023 12:06 PM [facility] ALT 43 5 - 55 U/L 12/23/2023 12:06 PM [facility] AST 29 5 - 34 U/L 12/23/2023 12:06 PM [facility] Anion Gap 8 6 - 16 12/23/2023 12:06 PM [facility] BUN/Creatinine Ratio 16 7 - 23 12/23/2023 12:06 PM [facility] Osmolality Calculated 287 275 - 295 mOsm/kg 12/23/2023 12:06 PM [facility] Albumin/Globulin Ratio 0.9(L) 1.1 - 2.3 12/23/2023 12:06 PM [facility] eGFR by CKD-EPI 85(L) >=90 mL/min/1.7 3 m2 12/23/2023 12:06 PM [facility] Blood BLOOD SPECIMEN / Unknown Lab Venipuncture / Unknown 12/23/2023 11:22 AM CDT 12/23/2023 11:38 AM [facility] Gisela Roper GRAZING EXAMINER-FARM WORKER LAB - CHEMISTRY ORD ERABLES Final Result [address] [address], [facility] [phone] * HEPATITIS C ANTIBODY (12/23/2023 11:22 AM CDT) Hepatitis C Antibody Non-react yoana Non-reac tive 12/23/2023 12:25 PM CDT [facility] Comment:Hepatitis C Antibody screen indicates no [...] CDT 12/23/2023 11:34 AM CDT Gisela Roper GRAZING EXAMINER-FARM WORKER LAB - CHEMISTRY ORD ERABLES Final Result [address] [address], [facility] [phone] from Last 3 Months or Most Recently Relevant to Health Maintenance Insurance [employer] MANAGED MEDICARE ADV [employer] SELF PAY NO INSURANCE Member Subscriber Plan / Payer (Ef fective for All Dates) Name:Eusebio Fowler Member ID:Not on file Relation to Subscriber:Not on file Name:EUSEBIO FOWLER Subscriber ID:Not on file (Home) Address: [address] [place] [phone] Payer ID:Not on file Group ID:Not on file Type:Self Pay Address: [place], [place] Care Teams Injector Assembler Relationship Specialty Start Date End Date Unknown, Provider PCP - General 12/23/23
--- OUTSIDE RECORDS SUMMARY | 2025-01-29 10:22 | XMS_ITS | Clinical Summary ---
Author Organization [facility] Address [address] [place] [address] Phone Care Team Providers Care Mathematical Scientist Name Role Phone Provider, None Primary Care Provider Unavailabl e Allergies No known active allergies Medications amphetamine-dex troamphetamine (ADDERALL) 30 MG Tablet TK 1 T PO D 0 8 Active Calcium Carbonate-Vitam in D (Oyster Shell Calcium/D) 500-200 MG-UNIT Tablet Take 1 Tablet by mouth. Active naloxone HCl (Narcan) 4 MG/0.1ML Liquid 1 Sterling by Nasal route as needed for Opioid [...] Insurance [facility] Care Teams Mathematical Scientist Relationship Specialty Start Date End Date Provider, None [place] PCP - General 05/01/23
--- OUTSIDE RECORDS SUMMARY | 2025-01-29 10:22 | XMS_ITS | Clinical Summary ---
Author Organization [employer] [facility] Address [address] [place] [address] Care Team Providers Care Launchman Name Role Phone Unavailable Primary Care Provider [...] 12/03/2024 4:30 PM CDT Telephone Check Up [facility] - [place] [address] [place] [address] Davy Vera MD 11/27/2024 Orders Only [facility] - [place] [address] [place] [address] Davy Vera MD 11/21/2024 Orders Only [facility] - [place] [address] [place] [address] Davy Vera MD 11/21/2024 Abstract [facility] - [place] [address] [place] [address] Davy Vera MD 11/16/2024 Orders Only [facility] [address] [place] [address] Davy Vera MD 11/15/2024 3:00 PM WILDLIFE REMOVAL SPECIALIST Office Visit [facility] [address] [place] [address] Davy Vera MD Prostate cancer (CMS/HCC) (Primary [...] on file Legal Sex Male 10:08 AM WILDLIFE REMOVAL SPECIALIST Gender Identity Not on file Sexual Orientation Not on file Last Filed Vital Signs Vital Sign Reading Time Taken Comments Blood Pressure 123/69 11/15/2024 3:12 PM WILDLIFE REMOVAL SPECIALIST Pulse 67 11/15/2024 3:12 PM WILDLIFE REMOVAL SPECIALIST Temperature 36.1 C (97 F) 11/15/2024 3:12 PM WILDLIFE REMOVAL SPECIALIST Respiratory Rate 15 11/15/2024 3:12 PM WILDLIFE REMOVAL SPECIALIST Oxygen Saturation 96% 11/15/2024 3:12 PM WILDLIFE REMOVAL SPECIALIST Inhaled Oxygen Concentration - - Weight 126.6 kg (279 lb) 11/15/2024 3:12 PM WILDLIFE REMOVAL SPECIALIST Height 177.8 cm (5' 10 ) 11/15/2024 3:12 PM WILDLIFE REMOVAL SPECIALIST Body Mass Index 40.03 11/15/2024 3:12 PM WILDLIFE REMOVAL SPECIALIST Plan of Treatment Health Maintenance Due [...] 2018 INFLUENZA VACCINE (#1) 2024 Medicare Advantage (NE) Prev entative Visit/Annual Wellness Visit 09/26/2024 DTAP/TDAP/TD VACCINES (2 - Td or Tdap) 07/09/2031 PNEUMOCOCCAL VACCINE 50+ YEARS Completed 07/28/2023 Procedures Procedure Name Priority Date/Time Associated Diagnosis Comments PET TUMOR GA68 ILLUCCIX PSMA IMG W CT SKAlycia MD Routine 11/26/2024 10:33 AM WILDLIFE REMOVAL SPECIALIST TESTOSTERONE FREE Routine 11/15/2024 4:2 6 PM WILDLIFE REMOVAL SPECIALIST PSA Routine 11/15/2024 11:42 AM WILDLIFE REMOVAL SPECIALIST from Last 3 Months Results * PET TUMOR GA68 ILLUCIX PSMA IMG W CT GABY WARD (11/26/2024 10:33 AM WILDLIFE REMOVAL SPECIALIST) Anatomical Region Laterality Modality Positron Emissio n Tomography (PET) Davy Vera MD PE ORDERABLES Final Result * TESTOSTERONE FREE (11/15/2024 4:26 PM WILDLIFE REMOVAL SPECIALIST) Blood Dayv Vera MD CHEMISTRY ORDERABLES Final Resu lt * PSA (11/15/2024 11:42 AM WILDLIFE REMOVAL SPECIALIST) Blood Davy Vera MD CHEMISTRY ORDERABLES Final Resu lt from Last 3 Months Insurance [employer] [facility]
--- OUTSIDE RECORDS SUMMARY | 2025-01-29 10:22 | XMS_ITS | CONTINUITY OF CARE DOCUMENT ---
Author Name velasquez eng Address Unknown Organization [facility] Address [address] [place] [address] [address] [place] [address] Phone [phone] Care Team Providers Care Insole Beveler Name Role Phone Elian WARD, Nash Lawler Unavailable TRUE ESCAMILLA MD Unavailable [phone] TRUE ESCAMILLA MD Unavailable PROBLEMS Condition Status Date Provider Notes Prediabetes active Brittnee Thakkar NP Ectopic Arrhythmia active Nash Plummer MD Abnormal electrocardiogram active Nash Plummer MD Sleep apnea active Nash Plummer MD HTN essential active Nash Plummer MD DVT active Nash Plummer MD Cardiology examination active Nash regan MD ENCOUNTERS Date Type Provider Location Encounter Diag nosis - In-person encounter Office Visit Nash Plummer MD [place] [facility] - In-person encounter Office Visit Mima Grewal MD [place] [facility] - In-person encounter Office Visit Nash Plummer MD [place] [facility] - In-person encounter Office Visit Nash Plummer MD [place] [facility] Prediabetes - In-person encounter Office Visit Nash Plummer MD [place] [facility] Cardiology examinationDVTHTN essentialSleep apneaAbnormal electrocardiogramEctopic Arrhythmia VITAL SIGNS Date Observation Value Provider Body Mass Index (Ratio) 40.03 kg/m2 Lebron nichols Sunil blood pressure, diastolic 88 mm[Hg] Tania [place] [facility] blood pressure, systolic 150 mm[Hg] [facility] oxygen saturation, oximetry 94 % [facility] respiratory rate E&M 12 /min [facility] pulse rate 58 /min [facility] weight E&M 279 [lb_av] [facility] blood pressure, cuff size regular cristofer [facility] height E&M 70 [in_i] [facility] Body Mass Index (Ratio) 40.46 kg/m2 Vinicio [...] Mass Index (Ratio) 39.74 kg/m2 Iraj dasilva Elisa blood pressure, diastolic -1 mm[Hg] Li [employer]kLogic [...] Joyreri MORRO drug use no Verah Bonareri CHAR CONVEYOR TENDER alcohol use yes Verah Bonareri CHAR CONVEYOR TENDER smoking status Former smoker Verah Bonare ri CHAR CONVEYOR TENDER personal history of marijuana use no Verah Bonareri CHAR CONVEYOR TENDER drug use no Verah Bonareri CHAR CONVEYOR TENDER alcohol use yes Verah Bonareri CHAR CONVEYOR TENDER smoking status Former smoker Verjoanne Bonare ri CHAR CONVEYOR TENDER social history reviewed E&M revi ewed - no changes required Nash Plummer MD INSURANCE PROVIDERS Payer name Policy type / Coverage type Patric red alliance party ID AARP MEDICARE ADVANTAGE [facility] [employer] [id number] ADVANCE DIRECTIVES Name Date DISCUSSED - NO DECISION MADE TREATMENT PLAN Date Name Performer [id number],S,24 hr tele Sa dwayne Plummer MD [id number],C,c urrently on Xaralto needs to remain on [...] venous and artierial studies Nash Plummer MD [id number],S,C heck BP at home before starting meds D iscussion of benefits for remote patient monitoring took place. Patient gives consent for remote monitoring of physiologic parameters including, but not limited to, weight, blood pressure, pulse oximetry, respiratory flow rate. BP today: 120/80 Nash Plummer MD [id number],S,S hows inferior [place] age undetermined. check stress test with Lexiscan. will also obtain 24 hr telemonitor because he seems to have extra heart beats on exam. Nash Plummer MD [id number],S,Needs cardiac AGRAWAL with abnormal EKG Nash Plummer [...] 126/78 (05/04/2024) Nash Plummer MD Cardiology Mima Greawl MD Cardiology Mima Grewal MD Cardiology: O rders: 9 9214 MOD 30-39min ([id number]) C omplex e/m visit add on ([id number]) [...] function. 3 . No significant valvular abnormalities. Joshjoanen Ariane HOOKER Cardiology:24 hr tele Nash Plummer [...] 120/80 Nash Plummer MD Cardiology:Shows inf erior [place] age undetermined. check stress test with Lexiscan. [...]
--- OUTSIDE RECORDS SUMMARY | 2025-01-29 10:22 | XMS_ITS | Data Portability ---
Author Organization [place] [employer], Main Office Address [address] [place] [address] Assessment Encounter Date Assessment Date Assessment LastModified [...] Diagnostic sleep study 03/17/16 AHI = 37 [facility] titration sleep study 10/11/21 sleep onset = 5.5 minutes, REM onset = 53.5 minutes, ResMed medium AirFit F30i full face mask @ 12 cmH2O, PLMI = 26 [facility] titration sleep study 02/22/23 sleep onset 4.5 [...] remain at 14-15 cmH2O. Keep EPR standard methods time analyst. Keep ramp off. Keep humidifier level at [...] This note is dictated and transcribed by [employer]. 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 Despite proofreading, typographical errors may occur. Occasional wrong-word or 'ilepk-[id number]' substitutions may have occurred due to the [...] available Lab lipid panel, serum [address] (Lab), [address] [place], [address], 11/13/2024 11:28:55 CBC w/ auto diff 2024 025 [facility] (Lab), [address] [place], [address], 01/10/2025 15:50:15 TSH, serum or plasma [address] (Lab), [address] [place], [address], 11/13/2024 11:28:55 CMP, serum or plasma 2024 025 [facility] (Lab), [address] [place], [address], 01/10/2025 16:45:14 vitamin D, 25-hydrox y, total, serum [address] (Lab), [address] [place], [address], 11/13/2024 11:28:56 vitamin B12 + folate, serum or blood [address] (Lab), [address] [place], [address], 11/13/2024 11:28:56 ferritin, serum or plasma 2024 025 [facility] (Lab), [address] [place], [address], 01/28/2025 04:23:24 vitamin E, serum 2024 025 [facility] (Lab), [address] [place], [address], 01/28/2025 04:23:24 Referral vascular surgeon referral - Please call patient to schedule an appointme nt. Thank you. 2024 025 [facility] Nash Plummer MD, [address], [address], 11/13/2024 16:05:21 ophthalmo logist referral - Please call patient to schedule an appointme nt. Thank you 2024 025 [facility], [address] [place], [address], 11/13/2024 15:55:15 wound care referral - Please call patient to schedule an appointme nt. Thank you. 2024 025 [facility], [address] [facility], 6 [address], [place], [address], 11/13/2024 15:55:16 podiatris t referral 2024 025 [email or web address] Roman TATEM, [address] [facility], [place], [address], 11/13/2024 15:24:40 gastroent erologist referral - Please call patient to schedule an appointme nt. Thank you. 2024 025 [email or web address] Elena Bhagat MD, [address] [facility], [address], [place], [address], 11/13/2024 15:11:37 Procedures colonosco py screening (PROC) - Please call patient to schedule an appointme nt. Thank you. 2024 025 [email or web address] Austin Orlando MD, [address] [place], [address], 01/14/2025 08:43:50 Surgeries None recorded. Imaging None recorded. Medication Orders ferrous sulfate 325 mg (65 mg iron) tablet 2024 025 [id number], [address], [place], [place], [id number], 11/15/2024 14:51:25 Vitamin C 500 mg tablet 2024 025 [facility]79368, [address], [place], [place], [id number], 11/15/2024 14:51:24 vitamin E mixed 200 unit tablet 2024 025 [facility] #[id number], [address], [place], [place], [id number], 11/13/2024 10:22:21 Patient TargetsNo targets recorded. Patient Instructions Encounter Date Encounter Id Patient Instructions Last Modified By Organization Details Last Modified Time 10/19/2024 [id number] 1. Prostate ultrasound with biopsies performed today 2. We will schedule him for a telehealth in the next 7-10 days discussed the results or he can come into the office Not available 10/19/2024 16:41:51 11/02/2024 [id number] 1. 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 Thank you Referring Physician: Yarelis Martinez Internal Medicine, Encounter Date: 11/13/2024 Worship Leader Referral for Liver enzymes level above reference [...] ferritin 140 NG/mL 24-380 normal Not Available [employer] [facility] [address] [place], [address], 11/15/2024 13:14:09 11/12/19 25 11/15/2024 VITAM IN E (TOCO PHERO L) vitamin E, alpha tocopherol 10.0 mg/L 5.7-19 .9 Level s of alpha -toco phero l <5 mg/L are consi stent with Vitam in E defic iency in adult s. Not Available [employer] [facility] [address] [place], [address], 11/15/2024 13:14:11 11/12/19 25 11/15/2024 VITAM IN E (TOCO PHERO L) vitamin E, beta gamma tocopherol <1.0 mg/L <4.4 (Note ) Vitam in suppl ement ation withi n 24 hours prior to blood draw may affec t the accur acy of resul ts. This test was devel oped and its doug tical perfo rmanc e pablo cteri stics have been deter mined by [facility]. It has not been clear ed or appro adrianna by the FDA. This assay has been valid ated pursu ant to the CLIA regul ation s and is used for clini preeti purpo ses. MDF med fusio n [address] [facility] [address] [place] [address] [phone] Miri Dobson MD, PhD Not Available [employer] [facility] [address], [place], [address], 11/15/2024 13:14:11 12/15/19 25 12/14/2024 imagi ng/di agnos tic resul t No observ ation record ed. [facility] [address], [place], [address], 12/14/2024 19:56:15 01/11/20 25 01/10/2025 imagi ng/di agnos tic resul t No observ ation record ed. [facility] [address], [place], [address], 01/10/2025 14:43:39 01/23/20 25 01/22/2025 imagi ng/di agnos tic resul t No observ ation record ed. [facility] [address], [place], [address], 01/22/2025 18:18:24 Result Notes None recorded. Problems Name Problem SNOMED Code Status Onset Date Resolution Date Notes Provider Name and Address Organization Details Recorded Time Current tear of medial cartilage AND/OR meniscus of knee Active Not Available On license of [facility] 12:49:31 Hyperlipid emia 22443958 Active 2022 Yarelis bryan MD [address], [place], [address] , [place] [facility] 3 10:09:14 Obstructiv e sleep apnea syndrome 50623200 Active 2022 Yarelis bryan MD [address], [address], [place], [address] , [place] [facility] 3 10:09:18 Vitamin D deficiency 96325152 Active 2022 Yarelis bryan MD [address], [address], [place], [address] , [place] [facility] 3 10:11:00 Deep venous thrombosis of lower extremity 763136866 Active 2022 Yarelis bryan MD [address], [place], [address] , [place] [facility] 3 10:21:28 Cataract 453159590 Active 2022 Yarelis bryan MD [address], [address], [place], [address] , [place] [facility] 3 10:30:54 Periodic limb movement disorder 059566014 Active 2022 Andres Foreman MD [address], [address], [place], [address] , [place] [facility] 3 10:22:48 Iron deficiency 33296142 Active 2022 Andres Foreman MD [address], [address], [place], [address] , [place] [facility] 3 11:47:50 Vitamin E deficiency 23155912 Active 2022 Andres Foreman MD [address], [address], [place], [address] , [place] [facility] 3 11:47:59 Serum vitamin B12 below reference range 535494789 Active 2023 Yarelis bryan MD [address], [address], [place], [address] , [facility] [employer] [facility] 4 17:22:48 Peripheral venous insufficie ncy 29859912 Active 2023 Roman Escobar DPM [address], [address], [place], [address] , [facility] [employer] [facility] 4 12:21:07 Xerosis due to atopic dermatitis 367162983 Active 2023 Roman Escobar DPM [address], [address], [place], [address] , [facility] [employer] [facility] 4 15:25:23 Prostate nodule 6889123710062 09 Active 2023 Shahbaz Hendrix MD [address], [address], [place], [address] , [facility] [employer] [facility] 4 15:20:38 Influenza caused by Influenza A virus 583964827 Active 2023 Jean Carlos Curry LPN null, [facility] [employer] [facility] 4 12:54:02 Upper respirator y infection 21599093 Active 2023 Jean Carlos Curry LPN null, [facility] [employer] [facility] 4 12:58:26 Prostate specific antigen above reference range 373394892 Active 2024 Maryann Moser null, [facility] [employer] [facility] 5 09:06:08 Pain in toe 237305177 Active 2024 Roman Escobar DPM [address], [address], [place], [address] , [facility] [employer] [facility] 5 11:30:41 Dystrophia unguium 63743652 Active 2024 Roman Escobar DPM [address], [address], [place], [address] , [facility] [employer] [facility] 5 11:30:41 Primary adenocarci noma of prostate Active 2024 Shahbaz Hendrix MD [address], [address], [place], [address] , [facility] 5 14:44:07 Malignant neoplasm of prostate 365348677 Active 2024 Maryann gillette, [facility] 5 09:08:34 Peripheral vascular disease 006243672 Active 2024 Yarelis bryan MD [address], [address], [place], [address] , [facility] 5 10:51:27 Liver enzymes level above reference range 866627577 Active 2024 Yarelis bryan MD [address], [address], [place], [address] , [place] [facility] 5 10:51:27 Onychomyco sis of toenails 329840849 Active 2024 Yarelis bryan MD [address], [address], [place], [address] , [facility] 5 10:51:27 Ankle pain 986036790 Active 2024 Yarelis bryan MD [address], [address], [place], [address] , [facility] 5 10:51:27 Multiple open wounds of lower leg 560272164 Active 2024 Yarelis bryan MD [address], [address], [place], [address] , [facility] 5 10:51:27 Unable to cut own toenails 470921516 Active 2024 Roman Escobar DPM [address], [address], [place], [address] , [facility] 5 14:41:25 Notes:Medical History: Catar act Bilateral hearing loss/tinnitus Rhinitis Persistent early REM onset Obesity with severe OSAHS, AHI = 37, 03/17/16, on autoCPAP c/o IVRC Mild LAE, EF 58% Hyperlipidemia Hemorrhoids Prostate ca PLMD Iron deficiency Vit B12 deficiency Vit D deficiency OA PVD Left DVT on Xarelto Epidermal cyst Procedure History: Left shoulder replacement 2014 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 Procedures Surgical History Date Name Laterality Status Provider Name and Address Organization Details Recorded Time 5 Nail Debridement completed Roman Escobar DPM [address], [address], [place], [address], [employer] [facility] [employer] 01/08/2025 14:40:57 5 2. Prostate Biopsy completed Shahbaz Hendrix MD [address], [address], [place], [address], [employer] [facility] [employer] 10/19/2024 16:41:13 4 Nail Debridement completed Roman Escobar DPM [address], [address], [place], [address], [employer] [facility] [employer] 07/10/2024 13:10:24 4 Wound Care-Podiatry completed Daniel Yo RN [employer] [facility] [employer] 06/20/2024 15:11:40 4 Wound Care-Podiatry completed Norma Ellis RN [employer] [facility] [employer] 05/02/2024 12:17:37 4 Wound Care-Podiatry completed Roman Escobar DPM [address], [address], [place], [address], [employer] [facility] [employer] 04/25/2024 12:31:52 4 Nail Debridement completed Parker Abdi DPM [address], [address], [place], [address], [email or web address] [facility] [employer] 12/05/2023 10:15:10 4 Trigger Point Injection completed Parker Abdi DPM [address], [place], [address], [facility] 11/24/2023 16:01:38 4 Unna boot - LE edema completed Parker Abdi DPM [address], [place], [address], [facility] [employer] [facility] 11/24/2023 16:01:14 total shoulder replacement completed Mar Daly [facility] 07/28/2023 10:02:28 Cataract Surgery completed Mar Daly [facility] 07/28/2023 10:02:36 Imaging Results Imaging Date Name Status LastModified by Organiz ation Details LastModified Time 12/14/2024 imaging/diagn ostic result active [facility] [address], [place], [address], 12/14/2024 19:56:15 01/10/2025 imaging/diagn ostic result active [address] [place] [address], [address], 01/10/2025 14:43:39 01/22/2025 imaging/diagn ostic result active [address] [place] [address], [address], 01/22/2025 18:18:24 Procedure Notes None recorded. Medical Equipment None [...] cm 82 /min 98.1 [degF] 40.3 kg/m2 213934. 46 g 98 % 98 % 167 mm[Hg] 90 mm[Hg] Nakia Rico CMA [facility] [employer] 5 16:20:24 Date Recorded Body height Body mass index (BMI) Body weight Body temperature Heart rate Oxygen saturation Oxygen saturation in Arterial blood by Pulse oximetry Systolic blood pressure Diastolic blood pressure Provider Name and Address Organization Details Last Updated DateTime 5 177.8 cm 40.3 kg/m2 358625. 46 g 97.6 [degF] 85 /min 97 % 97 % 144 mm[Hg] 75 mm[Hg] Maryann Moser [facility] [employer] 5 14:12:01 Date Recorded Body height Body mass index (BMI) Body weight Body temperature Heart rate Oxygen saturation Oxygen saturation in Arterial blood by Pulse oximetry Pain severity - 0-10 verbal numeric rating [Score] - Reported Systolic blood pressure Diastolic blood pressure Provider Name and Address Organization Details Last Updated DateTime 5 177.8 cm 40.2 kg/m2 807266. 86 g 98.4 [degF] 70 /min 95 % 95 % 0 144 mm[Hg] 70 mm[Hg] Yaa Scott MA [facility] [employer] 5 10:41:11 Date Recorded Body height Body mass index (BMI) Body weight Body temperature Oxygen saturation Oxygen saturation in Arterial blood by Pulse oximetry Systolic blood pressure Diastolic blood pressure Provider Name and Address Organization Details Last Updated DateTime 5 177.8 cm 40.2 kg/m2 127588. 86 g 98.4 [degF] 95 % 95 % 144 mm[Hg] 70 mm[Hg] Razia Bae MA [facility] [employer] 5 10:09:16 Date Recorded Heart rate Heart rate Respiratory rate Provider Name and Address Organization Details Last Updated DateTime 11/13/2024 71 /min 71 /min 15 /min Andres Foreman MD [address] [place] [address], [address], [facility] [employer] 11/13/2024 10:50:59 Date Recorded Body height Body mass index (BMI) Body weight Heart rate Respiratory rate Oxygen saturation Oxygen saturation in Arterial blood by Pulse oximetry Systolic blood pressure Diastolic blood pressure Provider Name and Address Organization Details Last Updated DateTime 5 177.8 cm 40.2 kg/m2 782768. 86 g 72 /min 14 /min 98 % 98 % 127 mm[Hg] 75 mm[Hg] Vania Wylie [facility] [employer] 5 11:40:47 Social History Question Answer Notes LastModified by Organization Details LastModified Time Tobacco Smoking Status Never Smoker Mar Daly, MANNYAdriana gillette, [facility] [employer] 07/28/2023 10:00:00 Do You Have An Advance [...] Or The Highest Degree You Have Received? [id number] Information not available 07/28/2023 Do You Have [...] Do You Have A Medical Power Of Picking Supervisor? No Information not available 07/28/2023 Do You Have Moisture Problems In Your Home? No Information not available 09/20/2023 What Was The Date Of Your Most Recent Tobacco Screening? 11/13/2024 Information not available 11/13/2024 Have You Ever Been Counseled For Unhealthy Alcohol Use? No Information not available 07/28/2023 Do You Have Any Pets? Yes 5 Cats 2 Dogs [email or web address] Information not available 02/21/2024 What Is Your [...] Anxious, Or Unable To Sleep At Night)? [id number] Information not available 07/28/2023 Do You Use [...] 07/28/2023 Do you have transportation difficulties? No [email or web address] Information not available 07/28/2023 Are you able to walk? YESWOREST [email or web address] Information not available 07/28/2023 Do you have difficulty doing errands alone? No [email or web address] Information not available 07/28/2023 Are you able to care for yourself? Yes [email or web address] Information not available 07/28/2023 Do you have difficulty dressing or bathing? No [email or web address] Information not available 07/28/2023 What is your exercise level? None [email or web address] Information not available 07/28/2023 Mental Status Question Answer Note LastModified by Organization D etails LastModified Time Do you have difficulty concentrating, remembering or making decisions? Yes [email or web address] Information no t available 07/28/2023 Family History Relationship Description Onset Age of this Age Resolved Age Notes LastModified by Organization Details LastModified Time Mother [facility] ed [email or web address] Not available 07/28/2023 09:58:38 Father Diabetes mellitus [...] Details Recorded Time Pneumococcal conjugate PCV20, polysaccharide ZMX202 conjugate, adjuvant, PF 3 completed Yarelis Martinez MD [address] [facility] [address], [place], [address], [facility] 07/28/2023 17:42:18 Past Encounters Encounter ID Performer Location Encounter Start Date Encounter Closed Date Diagnosis/Indication Diagnosis SNOMED-CT Code Diagnosis ICD10 Code Diagnosis Note [id number] Yarelis bryan MD [facility] Internal Med [facility] [address] [facility], [facility] 15 [place] [address] 07/28/2023 09:45:09 07/28/2023 10:40:40 Screening - NAD 032579967 Z13.9 C-scope: Get this Get yearly flu shotGet Tdap if not doneAgreea ble to do PCV #20 07/28/2023 Get shingrix vaccineCan do COVID 19 vaccine and also RSV RTC in 4 months, do labs, ER if worse Screening for malignant neoplasm of colon 912847741 Z12.11 Hyperlipidemia 86486727 E78.5 Not on any medsGet labs Obstructiv e sleep apnea syndrome 92372073 G47.33 Sleep study 02/22/[address] Tre Ramirez get a referral to Dr Foreman Screening for malignant neoplasm of prostate 935125051 Z12.5 Vitamin D deficiency 347 04288 E55.9 Serum suzie min B12 below reference range 628044839 R79.89 Peripheral vascular disease 269478178 I73.9 Needs a referral to cardiology , will see Dr Plummer today 07/28/2023 at 2.00pm Deep venou s thrombosis of lower extremity 295073898 I82.409 L leg DVT as per his historyDoe s have venous stasis skin changes and also pitting edema but dave LETreated in the ER for L LE cellulitis On xareltoNee ds to see cardiology Addendum: 07/28/2023 Dr Plummer [facility] 07/28/2023 Cataract 038054824 H26.9 L eye doneNeeds R eye Administra tion of pneumococcal vaccine 54884630 Z23 [id number] Andres Foreman MD [facility] [address] 09/01/2023 09:32:16 09/02/2023 08:18:32 Obstructive sleep apnea syndrome 14317947 G47.33 Periodic l imb movement disorder 693073788 G47.61 D50.8 E83.42 [id number] Andres Foreman MD S_[place] [address] 09/20/2023 10:11:01 09/21/2023 09:02:48 Obstructive sleep apnea syndrome 75104018 G47.33 Iron deficiency 53886395 E61.1 Vitamin E deficiency 541 56511 E56.0 [id number] Yarelis bryan MD S_[facility] Internal Med [address] 1 10/18/2023 10:09:16 10/20/2023 10:08:49 Screening - NAD 935123386 Z13.9 C-scope: Get this Get yearly flu shotGet Tdap if not doneAgreea ble to do PCV #20 07/28/2023 Get shingrix vaccineCan do COVID 19 vaccine and also RSV RTC in 4 months, do labs, ER if worse Screening for malignant neoplasm of colon 965707113 Z12.11 Hyperlipidemia 46083462 E78.5 Not on any medsGet labs Obstructiv e sleep apnea syndrome 17896293 G47.33 Sleep study 02/22/[address] Tre Ramirez get a referral to Dr Foreman Vitamin D deficiency 347 85265 E55.9 Serum suzie min B12 below reference range 479748665 R79.89 Peripheral vascular disease 283534438 I73.9 Needs a referral to cardiology , will see Dr Plummer 09/16/2023 , f/u in 6 months Deep venou s thrombosis of lower extremity 926222395 I82.409 L leg DVT as per his historyDoe s have venous stasis skin changes and also pitting edema but dave LETreated in the ER for L LE cellulitis On xarelto Dr Plummer [facility] Cataract 983234889 H26.9 L eye doneNeeds R eye Liver enzy mes level above reference range 351182762 R74.8 US liver 09/05/2023 : Hepatic steatosisN eeds to see GI Prostate s pecific antigen above reference range 651380603 R97.20 High normal PSANeeds to see urology Hyperproteinemia 3920335 9 E88.09 Get UPEP/SPEP Ankle pain 442184574 M25 .579 Get a referral to podiatry [id number] Parker Abdi DPM [facility] [place] [address] [place] [address] 11/24/2023 14:51:54 11/24/2023 16:06:14 Pain in left foot 5242684737 35238 M79.672 Edema of l ower extremity 226034957 R60.0 Left foot neuritis 56330 64124 81539 G57.82 Dry skin dermatitis 2600 20932 L85.3 [id number] D[facility] [place] [address] [place] [address] 12/05/2023 09:34:44 12/05/2023 11:09:15 Onychomycosis of toenails 197037413 B35.1 [id number] MD MARLENY [facility] [address] [place] [address] 12/21/2023 09:43:44 12/22/2023 09:46:44 Obstructive sleep apnea syndrome 34931004 G47.33 Iron deficiency 40260552 E61.1 Vitamin E deficiency 541 98311 E56.0 [id number] Yarelis bryan MD [facility] Internal [facility] [address] [address] 02/21/2024 09:41:06 02/21/2024 10:25:01 Screening - NAD 755412984 Z13.9 C-scope: Get this Get yearly flu shotGet Tdap if not doneUTD on PCV #20 07/28/2023 Get shingrix vaccineCan do COVID 19 vaccine and also RSV RTC in 4 months, do labs, ER if worse Screening for malignant neoplasm of colon 391731957 Z12.11 Hyperlipidemia 64444929 E78.5 On atorvastat in 40mg dailyGet labs Obstructiv e sleep apnea syndrome 97608154 G47.33 Sleep study 02/22/[address] [place] neurologis t Dr Foreman 12/21/2023 , next 03/22/2024 Vitamin D deficiency 347 47125 E55.9 Serum suzie min B12 below reference range 773288861 R79.89 Peripheral vascular disease [id number] I73.9 Dr Plummer 09/16/2023 , f/u in 6 months Deep venou s thrombosis of lower extremity 240060179 I82.409 L leg DVT as per his historyDoe s have venous stasis skin changes and also pitting edema but dave LETreated in the ER for L LE cellulitis On xarelto Dr Plummer [facility] Cataract 888566016 H26.9 L eye doneNeeds R eye Liver enzy mes level above reference range 710382164 R74.8 US liver 09/05/2023 : Hepatic steatosisN eeds to see GI Prostate s pecific antigen above reference range 223935259 R97.20 High normal PSANeeds to see urology Hyperproteinemia 8646859 9 E88.09 Get UPEP/SPEP Ankle pain 455833232 M25 .579 Dr Abdi 11/24/2023 , 12/05/2023 States that he is doing much better, and now is able to walk up and down stairs [id number] Andres Foreman MD S_[facility] [address] [address] 03/22/2024 09:52:59 03/23/2024 15:18:44 Obstructive sleep apnea syndrome 07499883 G47.33 Iron deficiency 14819923 E61.1 Vitamin E deficiency 541 92829 E56.0 [id number] Roman Escobar DPM [facility] [address] [address] 1 04/25/2024 10:48:12 04/25/2024 12:36:31 Deep venous thrombosis of lower extremity 487017725 I82.409 repeat ultrasound due to lower extremity pain, history of DVTfollow- up results Peripheral venous insufficiency 96056089 I87.2 recommend chronic compressio n therapy Open wound of left lower leg 9282634840 4731750 S81.802A multiple lower legcontinu e compressio nkeep clean and dryfollow- up 1 week Open wound of right lower leg 1929865222 8985662 S81.801A as above [id number] Yarelis bryan MD S_[facility] [address] [address] 04/26/2024 17:15:33 04/26/2024 18:07:15 Peripheral vascular disease 799402785 I73.9 Dr Plummer 09/16/2023 , f/u in 6 monthsSe[facility] Onychomyco sis of toenails 737153956 B35.1 In grown toenails, dave big toesGet a referral to podiatry Hyperlipidemia 23725532 E78.5 On atorvastat in 40mg dailyGet labs Vitamin D deficiency 347 01828 E55.9 Serum suzie min B12 below reference range 206048226 R79.89 [id number] Roman Escobar DPM [facility] [address] [address] 1 05/02/2024 11:15:40 05/02/2024 16:08:25 Deep venous thrombosis of lower extremity 249637829 I82.409 repeat ultrasound due to lower extremity pain, history of DVTfollow- up results Peripheral venous insufficiency 62370927 I87.2 recommend chronic compressio n therapyRec ommend follow-up with vascular for end of venous procedures if possible Open wound of left lower leg 7737203707 5104148 S81.802A multiple lower leg- gentian roseanna applied todayconti nue compressio nkeep clean and dryfollow- up 1 week Open wound of right lower leg 9228135703 1293950 S81.801A healed [id number] Yarelis bryan MD S_[facility] Internal [facility] 20[address] [facility], [facility] [address] [place] [address] 06/14/2024 09:39:45 06/14/2024 10:11:04 Peripheral vascular disease 679312042 I73.9 Dr Grewal [facility] 05/04/2024 , f/u in 6 monthsSeen in the ER [facility] Dr Holm be on xarelto lifelong as per [facility] Onychomyco sis of toenails 538473219 B35.1 In grown toenails, dave big toesDr Shawn 05/02/2024 Hyperlipidemia 60329704 E78.5 On atorvastat in 40mg dailyGet labs Vitamin D deficiency 347 40416 E55.9 Serum suzie min B12 below reference range 014035617 R79.89 Screening - NAD 18401940 3 Z13.9 C-scope: Get this Get yearly flu shotGet Tdap if not doneUTD on PCV #20 07/28/2023 Get shingrix vaccineCan do COVID 19 vaccine and also RSV RTC in 4 months, do labs, ER if worse Screening for malignant neoplasm of colon 405466845 Z12.11 Obstructiv e sleep apnea syndrome 38131423 G47.33 Sleep study 02/22/[address] Tre Foreman Deep venou s thrombosis of lower extremity 706701490 I82.409 L leg DVT as per his historyDoe s have venous stasis skin changes and also pitting edema but dave LETreated in the ER for L LE cellulitis On xarelto Dr Plummer [facility] Cataract 529489422 H26.9 L eye doneNeeds R eye Liver enzy mes level above reference range 059141395 R74.8 US liver 09/05/2023 : Hepatic steatosisN eeds to see GI Prostate s pecific antigen above reference range 825782988 R97.20 High normal PSANeeds to see urology Ankle pain 550844945 M25 .579 Dr Abdi 11/24/2023 , 12/05/2023 States that he is doing much better, and now is able to walk up and down stairs Multiple o pen wounds of lower leg 045562224 S81.801A Sees Dr Cantor eds to see wound clinicStar t on augmentinE R if worse [id number] Andres Foreman MD [facility] [place] [address] [place] [address] 06/20/2024 09:47:59 06/28/2024 11:37:07 Obstructive sleep apnea syndrome 10042383 G47.33 Iron deficiency 24155894 E61.1 Vitamin E deficiency 541 22694 E56.0 [id number] Roman Escobar DPM [facility] [address] [place] [address] 06/20/2024 14:12:50 06/20/2024 15:58:02 Abrasion of skin of right lower leg 5908923680 7433678 S80.811A gentian roseanna applied todayNew a wound care until healedIf not healed in 1 week return to office Peripheral venous insufficiency 11983609 I87.2 recommend chronic compressio n therapyRec ommend follow-up with vascular for end of venous procedures if possible Xerosis du e to atopic dermatitis 339381287 L85.3 left legfollow- up 3 weeks if not resolved referral to Dermatolog y [id number] Roman Escobar DPM [facility] [place] [address] [place] [address] 07/10/2024 11:54:59 07/10/2024 14:48:08 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 nails debrided without incident Pain in toe 446155479 M7 9.674 M79.997 [id number] Shahbaz Hendrix MD S_[address] [address] 07/18/2024 11:18:53 07/18/2024 13:36:32 Prostate nodule 4364170846 78865 N40.2 [id number] Andres Foreman MD S_[address] [address] 09/13/2024 09:57:41 09/13/2024 13:34:36 Obstructive sleep apnea syndrome 27287182 G47.33 Iron deficiency 04429768 E61.1 Vitamin E deficiency 541 85966 E56.0 [id number] Roman Escobar DPM [facility] [address] [address] 10/09/2024 11:17:46 10/22/2024 09:29:53 Dystrophia unguium 56605430 L60.3 nails debrided without incident Pain in toe 408720999 M7 9.674 M79.675 toes due to elongated nails [id number] Shahbaz Hendrix MD Cr_[address] [address] 10/19/2024 16:03:11 10/22/2024 09:39:27 [id number] Shahbaz Hendrix MD [facility]_[address] [address] 11/02/2024 13:55:53 11/02/2024 14:26:25 Prostate nodule 6120400907 26107 N40.2 Prostate s pecific antigen above reference range 204234359 R97.20 Primary adenocarcinoma of prostate 8205301611 C61 [id number] Andres Foreman MD S_[address] [address] 11/13/2024 09:55:52 11/13/2024 13:47:55 Obstructive sleep apnea syndrome 61038490 G47.33 Iron deficiency 25716310 E61.1 Vitamin E deficiency 541 54786 E56.0 [id number] Yarelis bryan MD [facility]_G Internal Med [facility] [address] [facility] [place] [address] 11/13/2024 09:58:01 11/13/2024 11:30:12 Peripheral vascular disease 764653242 I73.9 Dr Grewal [facility] 05/04/2024 , f/u in 6 monthsSeen in the ER [facility] Holm be on xarelto lifelong as per [facility] Onychomyco sis of toenails 550232703 B35.1 In grown toenails, dave big toesDr Shawn 05/02/2024 , last apt 10/09/2024 , next 01/08/2025 Hyperlipidemia 03599533 E78.5 On atorvastat in 40mg dailyGet labs Vitamin D deficiency 347 31458 E55.9 Serum suzie min B12 below reference range 913843790 R79.89 Screening - NAD 82560963 3 Z13.9 C-scope: Get this Get yearly flu shotGet Tdap if not doneUTD on PCV #20 07/28/2023 Get shingrix vaccineCan do COVID 19 vaccine and also RSV RTC in 4 months, do labs, ER if worse Screening for malignant neoplasm of colon 504513073 Z12.11 Obstructiv e sleep apnea syndrome 09078906 G47.33 Sleep study 02/22/[address] [place] neurologis Sandra Foreman seen 11/13/2024 , next apt on 02/12/2025 Deep venou s thrombosis of lower extremity 957340675 I82.409 L leg DVT as per his historyDoe s have venous stasis skin changes and also pitting edema but dave LETreated in the ER for L LE cellulitis On xarelto Dr Plummer [facility], is to get ECHO on 12/14/2024 and a sleep monitor on 11/16/2024 and f/u Dr Plummer 02/01/2025 Cataract 416413739 H26.9 L eye doneNeeds R eye Liver enzy mes level above reference range 316793047 R74.8 US liver 09/05/2023 : Hepatic steatosisN eeds to see GI Ankle pain 008816071 M25 .579 Dr Abdi 11/24/2023 , 12/05/2023 States that he is doing much better, and now is able to walk up and down stairs Multiple o pen wounds of lower leg 152956274 S81.801A Sees Dr Cantor eds to see wound clinicStar t on augmentinE R if worse Malignant neoplasm of prostate 347291044 C61 Addendum: 11/06/2024 :Bx notedWill refer to Dr Vera [id number] Roman Escobar DPM [facility] [address] [place] [address] 01/08/2025 11:20:55 01/08/2025 16:09:10 Dystrophia unguium 47100344 L60.3 nails debrided without incident Unable to cut own toenails 451366309 Z74.1 secondary to obesity Health Concerns Section Related Observation LastModified by Organization Detai ls LastModified Time None Recorded Concern Status LastModified by Organization Details LastModified Time None Recorded Advance Directives Directive N: Payers Encounter Date Sequence Insurance Name Policy Number Policy Mosquera Covered Member ID Mosquera Member ID Guarantor Name 10/19/2024 1 [facility] (MEDICARE REPLACEMENT/A DVANTAGE - HMO) [id number] Kendall Monroe [id number] Kendall Monroe 11/02/2024 1 [facility] (MEDICARE REPLACEMENT/A DVANTAGE - HMO) [id number] Kendall Monroe [id number] Kendall Monroe 11/13/2024 1 [facility] (MEDICARE REPLACEMENT/A DVANTAGE - HMO) [id number] Kendall Monroe [id number] Kendall Monroe 11/13/2024 1 [facility] (MEDICARE REPLACEMENT/A DVANTAGE - HMO) [id number] Kendall Monroe [id number] Kendall Monroe 01/08/2025 1 [employer] (MEDICARE REPLACEMENT/A DVANTAGE - PPO) Kendall Monroe [id number] Kendall Monroe Notes Date Note Type Note Provider Name and Address Organization Details Recorded Time 11/02/2024 text/html this patient was found to have a prostate nodule and underwent ultrasound with biopsies and on the right side he had 3/8 cores that were positive for [place] score 4+4=8. He has several comorbidities. Shahbaz Hendrix MD [address], [place], [address], [place] 11/02/2024 14:45:12 11/13/2024 text/html OV 07/28/2023:He re [...] stairs OV 04/26/2024: Here s/p ER at [facility] for LE swelling and edema, today is [...] is doing well today Yarelis Martinez MD [address], [place], [address], [place] 11/13/2024 11:25:52 11/13/2024 text/html Primary care/Ref erring [...] study on 03/17/16, AHI = 37.During the [facility] titration sleep study on 10/11/21, sleep onset = 5.5 minutes, REM onset = 53.5 minutes, ResMed medium AirFit F30i full face mask @ 12 cmH2O was applied, PLMI = 26. During the [facility] titration sleep study on 02/22/23, sleep onset [...] dozing. Andres Foreman MD [address] [address], [place], [address], [place] 11/15/2024 14:53:08 01/08/2025 text/html . Patient is a 64-year-old male who returns the office for routine foot care. Patient denies any other complaints. Roman Escobar DPM [address], [facility] [address], [place], [address], [place] 01/08/2025 14:41:48
--- OUTSIDE RECORDS SUMMARY | 2025-01-29 10:22 | XMS_ITS | Referral Summary ---
Author Organization [facility] Address [address] [place] [address] Care Team Providers Care Tool Specialist Name Role Phone Chito Cornejo MD [...] on file Legal Sex Male 1:17 AM ELECTRONIC TEST TECHNICIAN Gender Identity Not on file Sexual Orientation Not on file Last Filed Vital Signs Vital Sign Reading Time Taken Comments Blood Pressure 137/85 10/24/2024 1:00 AM ELECTRONIC TEST TECHNICIAN Pulse 62 10/24/2024 1:50 AM ELECTRONIC TEST TECHNICIAN Temperature 36.7 C (98 F) 10/23/2024 7:43 PM ELECTRONIC TEST TECHNICIAN Respiratory Rate 18 10/23/2024 7:45 PM ELECTRONIC TEST TECHNICIAN Oxygen Saturation 92% 10/24/2024 1:50 AM ELECTRONIC TEST TECHNICIAN Inhaled Oxygen Concentration - - Weight 127.5 kg (281 lb) 10/23/2024 7:43 PM ELECTRONIC TEST TECHNICIAN Height 177.8 cm (5' 10 ) 10/23/2024 7:43 PM ELECTRONIC TEST TECHNICIAN Body Mass Index 40.32 10/23/2024 7:43 PM ELECTRONIC TEST TECHNICIAN Plan of Treatment Not on file Procedures [...] 05/26/2015 10:00 AM CDT Test performed at [email or web address] [place] [id number] [place] [address] Director: KARLEY ADORNO DO,MPH us Historical Provider LAB BLOOD ORDERABLES Blanca schultz Result HISTORICAL RESULTS from Last 3 Months or Most Recently Relevant to Health Maintenance Insurance [place] [facility] MEDICARE ADVANTAGE Care Teams Tool Specialist Relationship Specialty Start Date End Date Chito Cornejo MD PCP - General 04/11/18
--- OUTSIDE RECORDS SUMMARY | 2025-01-29 10:22 | XMS_ITS | Continuity of Care Document ---
Author Organization [facility] Address [address] [place] [address] Phone Care Team Providers Care Assistant Professor Of Theater Name Role Phone Quiles OD, Beny Unavailable Unavailable Advance Directives Directive Yes / No Effective Date File Name No Information Encounters Encounter Description Practice Location Reason(s) For Visit Diagnoses Date Provider Providers Copied on Encounter [facility], [address], [place], [place], [id number], [place] tel:[phone] [facility] No Information 2-200 3 Quiles OD Beny. [address] [facility] [address] , [address], [place], [address], [place]. tel:[phone] Family History Family Member Type Diagnosis Age At Onset No Information Payers Payer name Insurance type Covered constitution party ID Authoriza tion(s) No Information Social [...]
--- OUTSIDE RECORDS SUMMARY | 2025-01-29 10:22 | XMS_ITS | Continuity of Care Document ---
Author Organization [facility] Address [address] [place] [address] [address] [place] [address] Phone Care Team Providers Care Circle Shear Operator Name Role Phone Sandro Newman MD Unavailable Unavailable Procedures Procedure Date OFFICE/OUTPATIENT VISIT, [facility] OPHTHALMIC BIOMETRY OPHTHALMIC BIOMETRY Advance Directives Directive Yes / No Effective Date File Name No Information Encounters Encounter Description Practice Location Reason(s) For Visit Diagnoses Date Provider Providers Copied on Encounter OFFICE/OUTPAT IENT VISIT, [facility], [address] [place], [place] [address] [address], [place], [place], [address], tel:[phone] [facility] [place] No Information 7 Paty Jo. [address] [place] [address], [address], [place], [place], [address], . tel:[phone] Referring Provider: Sandro Spring, [address] [place] [address] [address], [place], [address]. tel:[phone] Family History Family Member Type Diagnosis Age At Onset No Information Payers Payer name Insurance type Covered republican ID Authoriza tidaniel(s) [facility](Not Providers) CI [id number] Social History Type Description Quantity Date Captured [...]
== END 2025-01-29 09:39 | disposition home or self-care (01) ==
PROVIDERS: PCP Internal Medicine; Visit Provider Urology
DX: R32 Unspecified urinary incontinence (principal)
CPT/HCPCS: 51600; 74430; Q9967